=== PATIENT | male | born 1945 | race Caucasian/White ===

== ENCOUNTER 2016-11-01 16:37 | Inpatient (IN) | payer MEDICARE ==
[~2016-11-01] VITALS: Ht 172.7 cm; Wt 102.6 kg
--- NOTE | ~2016-11-01 | EKG ---
[place], [place] ELECTROCARDIOGRAM REPORT NAME: MICHAEL ADLER UNIT #: [id number] ROOM: 407 DOCTOR: FATIMAH MUNOZ MD BIRTHDATE: [birth year] DOS: 11/01/2016 TIME: 17:06 FINDINGS: 1. Normal sinus rhythm at the rate 72. 2. First degree AV block. 3. Left ventricular hypertrophy of high voltage with secondary ST and T wave changes. 4. Abnormal electrocardiogram. FATIMAH MUNOZ MD CM:EKGRPT:ELECTROCARDIOGRAM REPORT 1051 1203 FATIMAH MUNOZ MD
--- NOTE | ~2016-11-01 | WRIGHTHP ---
[place], [place] PATIENT HISTORY AND PHYSICAL EXAM NAME: MICHAEL ADLER [facility] #: [id number] UNIT #: [id number] ROOM: 407 DOCTOR: LULY HERRERA DO BIRTHDATE: [birth year] DOS: 11/01/2016 PRIMARY CARE PHYSICIAN: Dr. Riley. The patient was seen and evaluated on 11/02/2016 with the resident. Please see the resident's note for further details. ASSESSMENT: 1. Acute community acquired pneumonia, right upper lobe and right lower lobe. 2. Hemoptysis. 3. Mild acute renal failure with history of chronic kidney disease stage III. 4. Coagulopathy secondary to chronic Coumadin treatment. 5. Hypertension. 6. Hyperlipidemia. 7. Diabetes mellitus. 8. Coronary artery disease with history of coronary artery bypass graft in 2004. 9. History of carotid artery stent placed on the right side. PLAN: Continue IV antibiotics. Follow up on final cultures. Dr. Garnica was consulted. Continue supportive care ____ with the nurse for now. LULY HERRERA DO CM:HISPHYS:PATIENT HISTORY AND PHYSICAL EXAMINATION 1133 1332 LULY HERRERA DO 11/02/16 1334 interface
--- NOTE | ~2016-11-01 | PR ---
[place], [place] PROGRESS NOTE [id number] UN[facility] #: [id number] ROOM: 407 DOCTOR: SANTY AWAN MD,REBEKAH BIRTHDATE: [birth year] DOS: 11/05/2016 PULMONARY PROGRESS NOTE SUBJECTIVE: He has been doing well at this time. There has not been any episodes of hemoptysis. The patient denies symptoms of chest pain or any abdominal pain. OBJECTIVE: VITAL SIGNS: Shows normal temperature, respiratory rate 20, heart rate of 69, blood pressure 160/69. The pulse oxygen saturation on room air 97% saturation. HEENT: Examination shows no acute change. NECK: Supple. CARDIOVASCULAR: S1, S2 is audible. LUNGS: The patient was noted with moderate decreased breath sounds in the lungs bilaterally. There was no wheezing or crackles. ABDOMEN: Soft, nontender. LABORATORY DATA: Culture of the bronchial washing, normal aileen. The BMP of patient this morning, BUN 34, creatinine 2.16. IMPRESSION: 1. The patient with resolution of the hemoptysis for the patient, etiology does not seem to be related to the lungs and pseudohemoptysis was suspected. 2. Chronic kidney disease. 3. Resolving acute tracheobronchitis and other problems. PLAN OF TREATMENT: No changes from the pulmonary standpoint. Discharge planning for the patient as ordered and being started, the patient to be continued. Other previous treatment to be continued as well. Usual plan of management. REBEKAH MADERA MD CM:PNTRANS 1002 REBEKHA AWAN MD 11/06/16 0215 interface
--- NOTE | ~2016-11-01 | PROC NOTE ---
[place], [place] PROCEDURE NOTE [id number] UNIT #: [id number] ROOM: 407 DOCTOR: SANTY AWAN MD,REBEKAH BIRTHDATE: [birth year] DOS: 11/03/2016 PROCEDURE: Bronchoscopy. PREOPERATIVE DIAGNOSIS: Hemoptysis. POSTOPERATIVE DIAGNOSES: No evidence of bleeding was noted in endobronchial tree at all. Moderate amount of mucopurulent secretions which were present in endobronchial tree cleared with normal saline wash. There were no endobronchial obstructive lesions. Limited nasal examination for the patient was noted with possibility of polyp for this patient in the left nostril or turbinate hypertrophy. PROCEDURE DESCRIPTION: The informed consent obtained for the patient. The patient brought to the OR and placed in supine position. Conscious sedation was administered by the Anesthesia Department. After achieving proper sedation, airway introduced into the mouth. Bronchoscope advanced through the airway into laryngeal area. Epiglottis and vocal cords were seen. Bronchoscope advanced to the vocal cord and tracheal lumen. Tracheal lumen was identified and noted free of any masses. Scattered amount of purulent secretion was present in tracheal lumen, which was suctioned out with the help of normal saline wash and sent for cultures. Right upper, right middle, left upper, lingular and lower lobe bronchi for this patient were all examined. The bronchial washing was sent for culture. There was no evidence of any ongoing active bleeding or evidence of chronic bleeding was noted in the airways for the patient at the time of the assessment. Limited nasal examination for the patient was noted with possibility of nasal hypertrophy with inability to pass the scope further, rule out any polyp in the left nostril as well. Procedure well tolerated by the patient. The pictures of the current nasal abnormality were taken for the patient and consultation will be ordered from Dr. Diaz. Bronchial washings sent for all the appropriate cultures. REBEKAH MADERA MD CM:PROCNOTE:PROCEDURE NOTE 0950 1213 REBEKAH AWAN MD
--- NOTE | ~2016-11-01 | O ---
[place], [place] OPERATIVE NOTE NAME: MICHAEL ADLER UNIT #: [id number] ROOM: 407 DOCTOR: DB MENDEZ MD BIRTHDATE: [birth year] DOS: GASTROENDOSCOPIC REPORT INDICATIONS: This is a 71-year-old patient who has presented with a chief complaint of epigastric distress. Apparent confusion between hemoptysis and hematemesis. ENT assessment has been already done. I have been asked for assessment of the patient regarding possibility of esophageal contribution with epigastric distress. PAST MEDICAL HISTORY: History of hypertension, history of pneumonia, history of renal insufficiency, gastroesophageal reflux, history of coronary artery disease, and type 2 diabetes mellitus. PAST SURGICAL HISTORY: Cardiac stent, appendectomy, CABG, cholecystectomy, right carotid endarterectomy. SOCIAL HISTORY: Past smoker. Rare alcohol consumer. FAMILY HISTORY: Noncontributory. ALLERGIES: DEER MEAT AND TUNA. No medications. MEDICATIONS: Medication list has been reviewed. PROCEDURE: Today's procedure part of investigation is panendoscopy. PREMEDICATION: Versed and Diprivan. SCOPE: Olympus forward-viewing gastroscope Q10 video. REPORT: After putting the patient in left lateral position and after application of lubricant to the scope, the scope was introduced. Thereafter, under direct visualization, I advanced through the length of esophagus without difficulty. Esophagus cervicothoracic distally carefully examined. Gastric pouch was entered. Mild gastritis was seen. Duodenal bulb, second and third part within normal limits. The patient was extubated, tolerated the procedure well. IMPRESSION: Gastritis of mild degree. No active bleeding from esophagus. No active bleeding from gastric pouch. No contribution to upper gastrointestinal bleed. PLAN AND DISCUSSION: Pepcid 20 mg one every day would suffice management of some of the symptoms of dyspepsia, epigastric distress. ENT work and Pulmonary work in progress. [place], [place] OPERATIVE NOTE NAME: VITORMICHAEL Humphrey UNIT #: [id number] ROOM: 407 DOCTOR: DB MENDEZ MD BIRTHDATE: [birth year] DB MENDEZ MD CM:OPRECORD:OPERATIVE NOTE 1209 1520 DB MENDEZ MD 11/05/16 0022 interface
--- NOTE | ~2016-11-01 | PR ---
[place], [place] PROGRESS NOTE NAME: MICHAEL ADLER UNIT #: [id number] ROOM: 407 DOCTOR: REBEKAH SON MD BIRTHDATE: [birth year] DOS: 11/04/2016 PULMONARY PROGRESS NOTE SUBJECTIVE: The patient has been noted comfortable at this time without any distress. There were no further episodes of hemoptysis noted. Bronchoscopy completed yesterday with reduction of the cough as well. He was resumed on his anticoagulation. OBJECTIVE: VITAL SIGNS: Normal temperature, respiratory rate 20, heart rate 73, blood pressure 156/71. Pulse oxygen saturation on room air 96% saturation recorded. HEENT: No new change. NECK: Supple. CARDIOVASCULAR: S1, S2 audible. LUNGS: The patient was noted without any wheezing or crackles at the present time. ABDOMEN: Soft, nontender. LABORATORY DATA: INR today was 1.2. BMP of this morning, BUN 36, creatinine 2.29, glucose 231. The Gram stain of the bronchial washing of the patient noted moderate white blood cells, epithelial cells with gram-positive cocci in pairs and chains with few gram-negative bacilli, normal aileen preliminary noted with final culture results were pending. IMPRESSION: 1. Status post bronchoscopy of the patient for assessment hemoptysis, most likely pseudohemoptysis. 2. Nasal turbinate hypertrophy. 3. Acute pneumonia. The patient will be treated with antibiotics. PLAN OF TREATMENT: The patient may be considered for home discharge on oral medications. The chest x-ray of the patient was ordered for the patient, PA and lateral views to reassess the pneumonia as well. Continuation of other supportive therapy, plan of management. Usual care. If the patient does get discharged home today, he was advised for outpatient followup. ENT followup for the patient as recommended. [place], [place] PROGRESS NOTE NAME: MICHAEL ADLER UNIT #: [id number] ROOM: 407 DOCTOR: REBEKAH SON MD BIRTHDATE: [birth year] REBEKAH MADERA MD CM:PNTRANS 1027 0232 REBEKAH AWAN MD 11/05/16 0233 interface
--- NOTE | ~2016-11-01 | CON ---
[place], [place] REPORT OF CONSULTATION NAME: MICHAEL ADLER [facility] #: [id number] UNIT #: [id number] ROOM: 407 DOCTOR: SANTY AWAN MDREBEKAH BIRTHDATE: [birth year] DOS: 11/02/2016 PULMONARY CONSULTATION, EVALUATION AND MANAGEMENT REASON FOR CONSULTATION: To assess the patient for current acute hemoptysis. HISTORY OF PRESENT ILLNESS: A 71 years old white male who has presented to the hospital and admitted under the care of hospitalist services. The patient has been noted with coughing with sputum expectoration, which has been described intermittently containing small amount of blood. The patient has been hospitalized for further medical management. The hemoptysis has been noted intermittent, small amount as well. The patient described the blood containing fresh blood as a possibility of old clotted blood as well. He denies any symptoms of chest pain with that. Shortness of breath has been described. Denies symptoms of chest trauma. The patient denies symptoms of active wheezing. REVIEW OF SYSTEMS: CONSTITUTIONAL SYMPTOMS: The patient was noted with symptoms of fatigue and tiredness, was not remembering any symptoms of fever or chills. EYES: Denies any burning, redness or tenderness. EARS, NOSE, THROAT SYMPTOMS: No sore throat, hoarseness, otalgia, postnasal drainage, or epistaxis. CARDIOVASCULAR SYSTEM: Denies anginal pain, edema or pain of the lower extremities. GASTROINTESTINAL: Denies dysphagia, nausea, vomiting, diarrhea, abdominal pain, hematemesis, melena or any abnormal weight loss history. SKIN: Denies lesions, rashes or ulcers. CENTRAL NERVOUS SYSTEM: No dizziness, headache, diplopia, syncopal episodes or seizures. Remaining systems were reviewed with the patient, they were noted all negative. PAST MEDICAL HISTORY: Was noted as history of: 1. Coronary artery disease. 2. Essential hypertension. 3. Chronic kidney disease, stage 3. 4. Past history of pleural effusions. 5. Type 2 diabetes mellitus. 6. Hypercholesterolemia. 7. Atherosclerotic carotid vascular disease. PAST SURGICAL HISTORY: Was noted, 1. Coronary artery bypass grafting in 2004. 2. Cataract extraction with lens implantation. 3. Carotid arterial stent insertion. SOCIAL HISTORY: The patient is , lives at home. He has been noted with history of tobacco use since teenager, smoked about 1.5 packs of cigarettes per day that was discontinued approximately 30 years ago. 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 FAMILY HISTORY: The patient reported as diabetes and cancer. PHYSICAL EXAMINATION: GENERAL: This is a 71 years old white male who has been noted currently awake and alert without any distress with a height recorded 5 feet 8 inches, weight of 226 pounds, BMI 34.3. VITAL SIGNS: Shows normal temperature, respiratory rate is 12-18, heart rate of 71-74, blood pressure 166/67-176/82. Pulse oxygen saturation recorded as 97% on room air. HEENT: Examination shows head was atraumatic. Eyes nonicterus. NECK: Supple. Oral mucosa moist. CARDIOVASCULAR SYSTEM: S1, S2 audible. LUNGS: Noted with moderate decreased breath sounds and mild crackles at the lung bases bilaterally. ABDOMEN: Soft, nontender. EXTREMITIES: Shows no edema, clubbing, cyanosis. CENTRAL NERVOUS SYSTEM: Cranial nerves II-XII were intact. No focal deficits. MUSCULOSKELETAL SYMPTOMS: No acute deformities. LABORATORY DATA: CBC was done this morning shows hemoglobin 11.8, hematocrit 36.4, WBC count was normal. Platelet count was normal yesterday. The PT/INR yesterday noted 1.6 with PTT of 32.4. CMP on 11/01/2016 noted as BUN 46, creatinine 2.50, glucose 474. Sodium 133. CK-MB and troponin, which were done yesterday and this morning so far noted all the sets negative. CBC that was repeated this morning was noted with hemoglobin 11.2, hematocrit 34.1, WBC count and platelet count were normal. CMP this morning: BUN 40, creatinine 2.21, glucose 227, chloride 108, total protein of 5.9, albumin 2.8. The chest x-ray that was done, 2 views, reviewed during the current hospitalization noted with infiltration noted in the right mid and the lower lung. A CT scan of the chest was done today for assessment of further symptoms without contrast was reviewed, showed just small infiltration present in the posterior segment of the right upper lobe and the superior segment of the right lower lobe. Increased interstitial pulmonary markings noted possibility of interstitial lung disease cannot be completely excluded. There was no abnormal mediastinal or hilar lymphadenopathy. IMPRESSION: 1. The patient will be currently admitted to the hospital with symptoms of hemoptysis, was suspected possibility of acute pneumonia involving the right lung, nonaspiration with gram-positive organisms. 2. Possibility of interstitial pulmonary fibrosis has been considered scattered in the lungs versus acute infection at this time to be excluded since there has not been any. Past CT scans of the chest taken for comparison of current acute abnormal findings. 3. History of coronary artery disease for the patient as well. 4. Chronic anticoagulation noted with the current anticoagulation has been discontinued such as Plavix, aspirin, Coumadin because of the current [place], [place] REPORT OF CONSULTATION NAME: MICHAEL ADLER UNIT #: [id number] ROOM: 407 DOCTOR: REBEKAH SON MD BIRTHDATE: [birth year] hemoptysis. 5. Acute kidney injury. The patient with chronic kidney disease, stage 3. Acute kidney injury most likely would be related to possibility of prerenal etiology. PLAN OF TREATMENT: Keep the patient's anticoagulation on hold at this time. Bronchoscopy assess to be done in the morning for further assessment of endobronchial tree. Bronchodilators to be continued. Continue current antibiotic for the medical management of current acute pneumonia that should suffice. Monitor respiratory status closely, make additional changes in the medical management accordingly. Usual care. His home medications have been reviewed and resumed by the primary care attending. The assessment and management as well as the bronchoscopy has been discussed with the patient's spouse as well. She was also noted in agreement for that. Monitoring the hemoptysis closely. Send the sputum for gram stain and culture if the patient is able to expectorate any sputum until then. Further treatment changes will be done based on the progression of his illness. Currently, the patient has been receiving IV Zithromax, Rocephin that should suffice the current antibiotic coverage for the current acute pneumonia. REBEKAH MADERA MD CM:CONSTR:REPORT OF CONSULTATION 1119 11/03/16 0346 interface
--- NOTE | ~2016-11-01 | CON ---
[place], [place] REPORT OF CONSULTATION NAME: MICHAEL ADLER UNIT #: [id number] ROOM: 407 DOCTOR: CHRISTIANO ONEILL MD BIRTHDATE: [birth year] DOS: 11/03/2016 REFERRING DOCTOR: Dr. Garnica. REASON FOR CONSULTATION: Nasal polyp. HISTORY: The patient is a 71-year-old male who was admitted to [facility] with complaints of bloody sputum. The patient apparently was on oral anticoagulation and was taking warfarin, Plavix and aspirin prior to this episode. He underwent a bronchoscopy today and Dr. Garnica has requested consultation because of concern over possible abnormality in the nose. PAST MEDICAL HISTORY: Hypertension, folic acid deficiency, hemoptysis, hyperglycemia, coronary artery disease, congestive heart failure, GERD, hypercholesterolemia, anemia, type 2 diabetes mellitus and vitamin D deficiency. PAST SURGICAL HISTORY: Includes right carotid endarterectomy with stent placement, appendectomy, coronary artery bypass surgery, cholecystectomy and right inguinal hernia repair. HOME MEDICATIONS: Lasix, Coumadin, sodium bicarbonate, insulin, warfarin, aspirin, carvedilol, spironolactone, simvastatin, fenofibrate, digoxin, clopidogrel, omeprazole, valsartan. ALLERGIES: THE PATIENT STATES HE IS ALLERGIC TO DEER MEAT AND TUNA. PHYSICAL EXAMINATION: HEENT: The patient was examined in the PACU following his bronchoscopy, and bilateral nasal endoscopy was performed and showed an enlarged left middle turbinate, which I believe is the abnormality Dr. Garnica was concerned about. Overall, the architecture of the turbinates were normal. No polyps were seen. No mass lesions were seen. The oral cavity and oropharynx is unremarkable. Ears clear. NECK: Supple. IMPRESSION: 1. Hemoptysis. 2. Normal nasal anatomy. PLAN: Case was discussed with Dr. Garnica and I have explained to him that I believe the abnormality identified in the nose was an abnormally enlarged nasal turbinate. I have asked Dr. Garnica to have the patient follow up with ENT following discharge. Thank you for this consultation. [place], [place] REPORT OF CONSULTATION NAME: VITORMICHAEL Humphrey UNIT #: [id number] ROOM: 407 DOCTOR: CHRISTIANO ONEILL MD BIRTHDATE: [birth year] CHRISTIANO ONEILL MD CM:CONSTR:REPORT OF CONSULTATION 1134 11/04/16 1248 interface
--- NOTE | ~2016-11-01 | PR ---
[place], [place] PROGRESS NOTE NAME: MICHAEL ADLER ACC #: [id number] UNIT #: [id number] ROOM: 407 DOCTOR: REBEKAH SON MD BIRTHDATE: [birth year] DOS: 11/03/2016 SUBJECTIVE: He has been n.p.o. past midnight for bronchoscopy. The patient stated that he has expectorated moderate amount of sputum this morning, but did not contain any blood. He denies symptoms of chest pain or any abdominal pain. The patient does complain of mild shortness of breath. OBJECTIVE: VITAL SIGNS: Showed normal temperature, respiratory rate 21, heart rate 75, blood pressure 130/58. Pulse oxygen saturation on room air was 95% saturation. HEENT: Showed no new change. NECK: Supple. CARDIOVASCULAR: S1, S2 audible. LUNGS: The patient was noted without any wheezing or crackles at the present time. ABDOMEN: Soft, nontender. LABORATORY DATA: Blood culture from the 11/01/2016 for the patient preliminary showed no bacterial growth. Final culture results were pending. CMP this morning, BUN 35, creatinine 2.24. Glucose 196. The CBC for the patient was noted WBC count 10.4, hemoglobin 11.3, hematocrit 35.4. IMPRESSION: 1. The patient who has been currently noted with presumed hemoptysis. The patient's etiology unclear. 2. The patient with acute kidney injury, chronic kidney disease stage 3 to stage 4. 3. Acute pneumonia for this patient of the right lung suspected Gram-positive infection. PLAN OF TREATMENT: Continuation of the current plan of management at this time. Proceed with the bronchoscopy as planned. Any modification in the treatment the patient if necessary will be done after bronchoscopy. No changes in the medical management at this time. [place], [place] PROGRESS NOTE NAME: MICHAEL ADLER UNIT #: [id number] ROOM: 407 DOCTOR: REBEKAH SON MD BIRTHDATE: [birth year] REBEKAH MADERA MD CM:PNTRANS 0947 1157 REBEKAH AWAN MD 11/03/16 1158 interface
[~2016-11-01 16:37] MED LIST: ADVIL200 MG PO; ALBUTEROL0.09 MG/A2 IH; ALDACTONE25 MG PO; ASPI-COR81 MG PO; BACTROBAN OINT22 GM PO; CARVEDILOL25 MG PO; CINNAMON500 MG PO; COUMADIN2.5 MG PO; COUMADIN5 M2 PO; DIGOX0.125 MG PO; DIGOXIN0.125 MG PO; ENALAPRIL2.5 MG PO; ENALAPRIL5 MG PO; FENOFIBRATE160 MG PO; FLONASE0.05 MG/AC NS; HUMULIN 70/30 710 M1 SC; HUMULIN 70/30 PE3 ML SC; KEFLEX500 MG PO; LASIX40 MG PO; LEVOFLOXACIN500 MG PO; LOMOTIL 0.025 M1 TA1 PO; MEDROL DOSEPAK4 MG PO; OMEPRAZOLE40 MG PO; PRILOSEC40 MG PO; PROTONIX40 M1 PO; PROTONIX40 MG PO; ROBITUSSIN AC 110 ML PO; RU 500 SC; SIMVASTATIN20 MG PO; SODIUM BICARBO650 MG PO; TESSALON PERLE200 MG PO; TOBRADEX 0.1%-0.5 ML OPH; U-500 SC; VIBRAMYCIN100 MG PO; VITAMIN D50000 IU PO; ZITHROMAX Z PA250 MG PO; ZOFRAN ODT4 MG SL
[2016-11-01 16:46] VITALS: BP 162/72
[2016-11-01] MEDS ORDERED: CLOPIDOGREL75 MG PO (16:49)
[2016-11-01] MEDS ORDERED: HUMALOG100 UNIT/1 SQ (16:51)
[2016-11-01] MEDS ORDERED: OMEPRAZOLE40 MG PO (16:52)
[2016-11-01] MEDS ORDERED: TOUJEO300 U/ML SC (16:55)
[2016-11-01] MEDS ORDERED: VALSARTAN80 MG PO (16:55)
[2016-11-01 17:37] LABS: BASO # 0.1 10*3/uL (0.0-0.1); BASO % 0.9 % (0.0-1.0); EOS # 0.2 10*3/uL (0.0-0.4); EOS % 2.1 % (1.0-4.0); HEMATOCRIT 36.4 % (42.0-52.0); HEMOGLOBIN 11.8 g/dl (14.0-18.0); IG # 0.1 10*3/uL (0.0-0.1); LYMPH # 1.7 10*3/uL (1.3-4.4); LYMPH % 17.6 % (27.0-41.0); MEAN CELL VOLUME 84.8 fl (80.0-94.0); MEAN CORPUSCULAR HGB 27.5 pg (27.0-31.0); MEAN CORPUSCULAR HGB CONC 32.4 g/dl (33.0-37.0); MEAN PLATELET VOLUME 11.2 fl (9.6-12.3); MONO # 0.4 10*3/uL (0.1-1.0); MONO % 4.4 % (3.0-9.0); NEUT # 7.2 10*3/uL (2.3-7.9); NEUT % 74.5 % (47.0-73.0); PLATELET COUNT AUTOMATED 220 10*3/uL (130-400); RED BLOOD COUNT 4.29 10*6/uL (4.50-5.90); RED CELL DISTRI WIDTH 14.3 % (0-14.5); WHITE BLOOD COUNT 9.6 10*3/uL (4.8-10.8)
[2016-11-01 17:50] LABS: INTERNATIONAL NORM RATIO 1.6 (2.0-3.5); PROTHROMBIN TIME 17.4 SECONDS (9.0-12.4)
[2016-11-01 17:54] LABS: ALBUMIN 3.2 gm/dl (3.1-4.5); ALKALINE PHOSPHATASE 56 U/L (45-117); BILIRUBIN, TOTAL 0.5 mg/dl (0.2-1.0); BUN 46 mg/dl (7-24); CARBON DIOXIDE 24 mmol/L (21-32); CHLORIDE 102 mmol/L (98-107); EST GLOM FILT AFRICAN AMERICAN 31 ml/min; GLUCOSE 474 mg/dL (65-99); MAGNESIUM 1.9 mg/dL (1.5-2.1); POTASSIUM 4.9 mmol/L (3.5-5.1); SGOT/AST 23 IU/L (3-35); SGPT/ALT 19 U/L (12-78); SODIUM 133 mmol/L (136-145); TOTAL PROTEIN 6.6 gm/dL (6.4-8.2)
[2016-11-01 17:56] LABS: TROPONIN I < 0.015 ng/ml (<0.045)
[2016-11-01 18:56] VITALS: BP 166/56
[2016-11-01 19:09] VITALS: BP 145/66
[2016-11-01 20:30] VITALS: BP 176/82
[2016-11-02 00:33] VITALS: BP 159/68
[2016-11-02 00:36] LABS: CKMB 2.4 ng/ml (0.5-3.6); TROPONIN I 0.022 ng/ml (<0.045)
[2016-11-02 06:11] LABS: BASO # 0.1 10*3/uL (0.0-0.1); BASO % 0.6 % (0.0-1.0); EOS # 0.3 10*3/uL (0.0-0.4); EOS % 3.6 % (1.0-4.0); HEMATOCRIT 34.1 % (42.0-52.0); HEMOGLOBIN 11.2 g/dl (14.0-18.0); LYMPH # 1.7 10*3/uL (1.3-4.4); LYMPH % 19.3 % (27.0-41.0); MEAN CELL VOLUME 84.2 fl (80.0-94.0); MEAN CORPUSCULAR HGB 27.7 pg (27.0-31.0); MEAN CORPUSCULAR HGB CONC 32.8 g/dl (33.0-37.0); MEAN PLATELET VOLUME 10.5 fl (9.6-12.3); MONO # 0.4 10*3/uL (0.1-1.0); MONO % 4.9 % (3.0-9.0); NEUT # 6.4 10*3/uL (2.3-7.9); NEUT % 71.3 % (47.0-73.0); PLATELET COUNT AUTOMATED 203 10*3/uL (130-400); RED BLOOD COUNT 4.05 10*6/uL (4.50-5.90)
[2016-11-02 06:27] LABS: CKMB 2.1 ng/ml (0.5-3.6); TROPONIN I 0.025 ng/ml (<0.045)
[2016-11-02 06:40] LABS: ALBUMIN 2.8 gm/dl (3.1-4.5); BILIRUBIN, TOTAL 0.4 mg/dl (0.2-1.0); MAGNESIUM 1.9 mg/dL (1.5-2.1); PHOSPHOROUS 2.7 mg/dL (2.5-4.9); TOTAL PROTEIN 5.9 gm/dL (6.4-8.2)
[2016-11-02 06:49] LABS: FREE T4 1.06 ng/dl (0.76-1.46); THYROID STIM HORMONE (HS) 2.19 uIU/ml (0.358-4.75)
[2016-11-02 06:50] LABS: POTASSIUM 3.7 mmol/L (3.5-5.1)
[2016-11-02 06:54] LABS: INTERNATIONAL NORM RATIO 1.4 (2.0-3.5); PROTHROMBIN TIME 15.7 SECONDS (9.0-12.4)
[2016-11-02 06:59] LABS: HEMOGLOBIN A1c 11.4 % (4.8-5.6)
[2016-11-02 07:31] LABS: FOLIC ACID 4.59 ng/mL (>5.38); VITAMIN D, 25-HYDROXY 16.1 ng/mL (30-100)
[2016-11-02 08:00] VITALS: BP 166/67
[2016-11-02 12:00] VITALS: BP 162/71
[2016-11-02 16:00] VITALS: BP 185/78
[2016-11-02 20:00] VITALS: BP 139/64
[2016-11-03] VITALS (9 sets, daily range): BP systolic 120–181; BP diastolic 52–79
[2016-11-03 05:52] LABS: BASO # 0.1 10*3/uL (0.0-0.1); BASO % 0.6 % (0.0-1.0); EOS # 0.3 10*3/uL (0.0-0.4); EOS % 3.1 % (1.0-4.0); HEMATOCRIT 35.4 % (42.0-52.0); HEMOGLOBIN 11.3 g/dl (14.0-18.0); IG # 0.1 10*3/uL (0.0-0.1); LYMPH # 1.7 10*3/uL (1.3-4.4); LYMPH % 16.6 % (27.0-41.0); MEAN CELL VOLUME 84.9 fl (80.0-94.0); MEAN CORPUSCULAR HGB 27.1 pg (27.0-31.0); MEAN CORPUSCULAR HGB CONC 31.9 g/dl (33.0-37.0); MEAN PLATELET VOLUME 10.9 fl (9.6-12.3); MONO # 0.5 10*3/uL (0.1-1.0); MONO % 4.8 % (3.0-9.0); NEUT # 7.5 10*3/uL (2.3-7.9); NEUT % 74.4 % (47.0-73.0); PLATELET COUNT AUTOMATED 215 10*3/uL (130-400); RED BLOOD COUNT 4.17 10*6/uL (4.50-5.90); WHITE BLOOD COUNT 10.1 10*3/uL (4.8-10.8)
[2016-11-03 06:14] LABS: ALBUMIN 2.8 gm/dl (3.1-4.5); BILIRUBIN, TOTAL 0.4 mg/dl (0.2-1.0); MAGNESIUM 1.8 mg/dL (1.5-2.1); POTASSIUM 3.8 mmol/L (3.5-5.1)
[2016-11-03 06:21] LABS: INTERNATIONAL NORM RATIO 1.3 (2.0-3.5)
[2016-11-04] VITALS (8 sets, daily range): BP systolic 125–168; BP diastolic 59–71
[2016-11-04 06:10] LABS: POTASSIUM 3.9 mmol/L (3.5-5.1)
[2016-11-04 06:26] LABS: INTERNATIONAL NORM RATIO 1.2 (2.0-3.5); PROTHROMBIN TIME 12.3 SECONDS (9.0-12.4)
[2016-11-04 15:07] LABS: ACID FAST SPEC PROCESSING Concentration (.)
[2016-11-05] VITALS: BP 119/56
[2016-11-05 06:02] LABS: BASO # 0.1 10*3/uL (0.0-0.1); BASO % 0.7 % (0.0-1.0); EOS # 0.4 10*3/uL (0.0-0.4); EOS % 4.1 % (1.0-4.0); HEMATOCRIT 33.4 % (42.0-52.0); HEMOGLOBIN 10.9 g/dl (14.0-18.0); LYMPH # 1.8 10*3/uL (1.3-4.4); LYMPH % 19.9 % (27.0-41.0); MEAN CELL VOLUME 85.2 fl (80.0-94.0); MEAN CORPUSCULAR HGB 27.8 pg (27.0-31.0); MEAN CORPUSCULAR HGB CONC 32.6 g/dl (33.0-37.0); MONO # 0.4 10*3/uL (0.1-1.0); MONO % 4.7 % (3.0-9.0); NEUT # 6.5 10*3/uL (2.3-7.9); NEUT % 70.2 % (47.0-73.0); PLATELET COUNT AUTOMATED 200 10*3/uL (130-400); RED BLOOD COUNT 3.92 10*6/uL (4.50-5.90); WHITE BLOOD COUNT 9.2 10*3/uL (4.8-10.8)
[2016-11-05 06:22] LABS: ALBUMIN 2.8 gm/dl (3.1-4.5); MAGNESIUM 1.9 mg/dL (1.5-2.1)
[2016-11-05 06:25] LABS: BILIRUBIN, TOTAL 0.3 mg/dl (0.2-1.0); TOTAL PROTEIN 5.8 gm/dL (6.4-8.2)
[2016-11-05 08:00] VITALS: BP 160/69
[2016-11-05] MEDS ORDERED: NATURE'S BLEND F1 MG PO (09:55)
[2016-11-05] MEDS ORDERED: AMINOPHYLLIN200 MG PO (09:55)
[2016-11-05] MEDS ORDERED: D-1000 185 MG-11 TAB PO (09:55)
== END 2016-11-05 11:25 | disposition home or self-care (01) | DRG 193 ==
LOC: ED 16:37 → 4E 18:26 → EDHOLD 18:26 → 4E 19:04
PROVIDERS: Emergency Medicine; Internal Medicine; Internal Medicine Critical Care Medicine; Internal Medicine Hospice and Palliative Medicine; Nurse Practitioner Family
DX: J18.9 Pneumonia, unspecified organism (principal); N17.0 Acute kidney failure with tubular necrosis; N18.4 Chronic kidney disease, stage 4 (severe); D68.59 Other primary thrombophilia; E11.22 Type 2 diabetes mellitus with diabetic chronic kidney disease; I50.22 Chronic systolic (congestive) heart failure; I13.0 Hypertensive heart and chronic kidney disease with heart failure and stage 1 through stage 4 chronic kidney disease, or unspecified chronic kidney disease; E11.65 Type 2 diabetes mellitus with hyperglycemia; N18.3 Chronic kidney disease, stage 3 (moderate); R13.10 Dysphagia, unspecified; K29.70 Gastritis, unspecified, without bleeding; I25.10 Atherosclerotic heart disease of native coronary artery without angina pectoris; D64.9 Anemia, unspecified; E55.9 Vitamin D deficiency, unspecified; E53.8 Deficiency of other specified B group vitamins; I48.0 Paroxysmal atrial fibrillation; J34.89 Other specified disorders of nose and nasal sinuses; E78.5 Hyperlipidemia, unspecified; E78.00 Pure hypercholesterolemia, unspecified; J20.9 Acute bronchitis, unspecified; K21.9 Gastro-esophageal reflux disease without esophagitis; Z79.01 Long term (current) use of anticoagulants; Z79.82 Long term (current) use of aspirin; Z79.4 Long term (current) use of insulin; Z91.018 Allergy to other foods; Z83.3 Family history of diabetes mellitus; Z80.9 Family history of malignant neoplasm, unspecified; Z95.1 Presence of aortocoronary bypass graft; Z98.49 Cataract extraction status, unspecified eye; Z82.49 Family history of ischemic heart disease and other diseases of the circulatory system; Z83.6 Family history of other diseases of the respiratory system; Z90.49 Acquired absence of other specified parts of digestive tract

== ENCOUNTER → 2016-11-08 | Outpatient (CLI) | payer MEDICARE ==
[~2016-11-08] MED LIST changes: +AMINOPHYLLIN200 MG PO; +CLOPIDOGREL75 MG PO; +D-1000 185 MG-11 TAB PO; +HUMALOG100 UNIT/1 SQ; +NATURE'S BLEND F1 MG PO; +TOUJEO300 U/ML SC; +VALSARTAN80 MG PO
[2016-11-08 12:10] LABS: PROTHROMBIN TIME 10.2 SECONDS (9.0-12.4)
== END | disposition home or self-care (01) ==
LOC: LAB 11:15
PROVIDERS: Internal Medicine Hospice and Palliative Medicine
DX: I48.0 Paroxysmal atrial fibrillation (principal)

== ENCOUNTER 2017-04-02 12:06 | Inpatient (IN) | payer MEDICARE ==
[~2017-04-02] VITALS: Ht 172.7 cm; Wt 98.2 kg
--- NOTE | ~2017-04-02 | PR ---
[place], [place] PROGRESS NOTE NAME: [id number] UNIT #: [id number] ROOM: 515 DOCTOR: TREVOR STAPLETON MD BIRTHDATE: [birth year] DOS: 04/04/2017 The patient was seen and examined. He is awake and alert. Denies shortness of breath. Denies nausea or vomiting. Denies any diarrhea. He states he thinks he feels a little bit better. He tells me he is being transferred to [place] tomorrow for a vascular intervention with the details unclear. PHYSICAL EXAMINATION: VITAL SIGNS: Showed temperature 97.6, pulse 70, respiratory rate 20, blood pressure 137/56. HEENT: Shows no JVD. LUNGS: Clear, no crackles or rales. HEART: Normal S1, S2. No rub, thrill or gallop. ABDOMEN: Soft, nontender. There is no organomegaly. EXTREMITIES: Showed trace edema. NEUROLOGIC: Showed no focal findings. LABORATORY DATA: Hemoglobin 8.6, white count of 8.7, platelets 205. Sodium 141, potassium 3.8, BUN 54, creatinine 3.25, glucose 157, calcium 7.4. ASSESSMENT AND PLAN: 1. Acute on chronic kidney disease. History of baseline creatinine is not clear. Creatinine is fairly stable today. Continue to follow trends. His baseline seems to be in the low to middle 2's range, although this is not confirmed. He may have a slight acute element related to prerenal factors. 2. Peripheral vascular disease with cellulitis. Dose the antibiotics for current creatinine clearance. I did note that the patient seems to be prepped for transfer tomorrow to an outside facility for a vascular intervention, which I am presuming to be lower extremity angiogram. I explained to the patient that there are certainly risks on his kidney function with this. I would ask that a CO2 angiogram be performed if possible to limit the contrast. The patient was upset when I told him about this and he has had issues with contrast nephropathy in the past. If his creatinine is higher tomorrow, I would try to hydrate the patient for some time to see if he has improvement before proceeding with the procedure and having more detailed discussion with him about it at the outside facility. 3. Anemia. Continue to follow H and H. Erythropoietin stimulating agents will be considered. 4. History of congestive heart failure. Watch volume status very carefully. Again, if contrast study is needed, he would be best to have some fluids with careful watch on his volume status. 5. Longstanding history of diabetes mellitus. Continue insulin. [place], [place] PROGRESS NOTE NAME: MICHAEL ADLER UNIT #: [id number] ROOM: [facility] DOCTOR: TREVOR STAPLETON MD BIRTHDATE: [birth year] TREVOR STAPLETON MD CM:PNTRANS 09 [phone] TREVOR STAPLETON MD 04/04/17 2317 interface
--- NOTE | ~2017-04-02 | EKG ---
[place], [place] ELECTROCARDIOGRAM REPORT NAME: MICHAEL ADLER UNIT #: [id number] ROOM: [facility] DOCTOR: SANTY AWAN MD,REBEKAH BIRTHDATE: [birth year] DOS: 04/02/2017 ELECTROCARDIOGRAM This EKG was done 03/31/2017 at 1:03 p.m. The electrocardiogram for this patient shows normal sinus rhythm with rate of 74 beats per minute. Mild prolongation of the WI interval. The patient noted unclear etiology. There is no evidence of acute ischemia except nonspecific ST-T changes were noted. REBEKAH MADERA MD CM:EKGRPT:ELECTROCARDIOGRAM REPORT [id number] REBEKAH AWAN MD
--- NOTE | ~2017-04-02 | CON ---
[place], [place] REPORT OF CONSULTATION NAME: MICHAEL ADLER UNIT #: [id number] ROOM: 515 [facility] [birth year] DOS: 04/04/2017 HISTORY OF PRESENT ILLNESS: ____ severe peripheral arterial disease more so below the popliteal and long-term diabetes mellitus, evidence of cardiovascular disease, history of coronary artery disease, coronary artery bypass in 2004. The patient also has hypercoagulable state and on the left ____ was concerned for the osteomyelitis also. ____ with possible severe peripheral arterial disease ____ enclosed over the peripheral artery and possible revascularization, ____ for which as per the warning given and able to salvage the left lower extremity and there are diminished pulses on the right side also, but able to feel the feeble dorsalis pedis and posterior tibial. On the left side, I could not feel the dorsalis pedis and the posterior tibial. Popliteal appears to be able to feel the popliteal both sides. The patient has a history of paroxysmal atrial fibrillation and type 2 diabetes mellitus and also dyslipidemia. The patient has insulin-dependent diabetes mellitus and also has vitamin deficiency. PAST SURGICAL HISTORY: The patient has had carotid endarterectomy, appendectomy, coronary bypass surgery, cholecystectomy, right inguinal hernia repair. SOCIAL HISTORY: The patient used to smoke one and half pack a day for 15-20 years. No smoking. No illicit drugs or alcohol use in the past. No smoking at this time. FAMILY HISTORY: Father also is a tobacco abuser ____. Mother has mitral infarction at age of 70. This is in 80s and the is probably from the heart disease. ALLERGIES: The patient is allergic to deer meat and ____. PHYSICAL EXAMINATION: GENERAL: Stable and alert. Not in any acute distress. Mental status is good. LABORATORY DATA: Hemoglobin 8.6. WBC 8.7, platelet count 205. BUN is 54, creatinine is elevated at 3.25. We will have the genetic counselor see the patient, prep the patient prior to the procedure with normal saline. GFR is 19, stage IV renal disease and we may ____ the procedure to reduce the risk of acute renal failure and contrast-induced nephropathy. Blood cultures are unremarkable. Osteomyelitis at the head of the proximal phalanx on the fourth left toe and ____ peripheral arterial disease, more severe on the left ____ and bilateral superficial artery stenosis, proximally. In-flow disease also is suspected. ____ on the left lower extremity and left toes and foot and ankle. IMPRESSION: Severe peripheral arterial disease with wound and possible osteomyelitis on the fourth toe on the left side and diminished pulses. PLAN: We will perform aortobifemoral angio with distal runoff with possible revascularization. Options, procedures, complications, and mortality risk is explained to the patient and spouse and the children. [place], [place] REPORT OF CONSULTATION NAME: MICHAEL ADLER UNIT #: [id number] ROOM: [facility] DOCTOR[facility] B[facility]: [birth year] Thank you very much for asking me to see the patient and follow the patient. ERIN DEXTER MD CM:CONSTR:REPORT OF CONSULTATION 1526 04/05/17 1845 interface MARLEN DOMINGUEZ DPM
--- NOTE | ~2017-04-02 | CON ---
[place], [place] REPORT OF CONSULTATION NAME: MICHAEL ADLER [facility] #: [id number] UNIT #: [id number] ROOM: 515 DOCTOR: ALBERTO PURIMARLEN J BIRTHDATE: [birth year] DOS: 04/03/2017 SUBJECTIVE: The patient is a 71-year-old male with a chief complaint of an infected fourth left toe, which has been evident for several weeks. The patient was admitted for cellulitis and infection. PAST MEDICAL HISTORY: Coronary artery disease, CHF, chronic kidney disease stage 3, essential hypertension, GERD, hypercoagulable state, mass nasal sinus, normocytic anemia, paroxysmal atrial fibrillation, type 2 diabetes with hyperglycemia, long-term current use of insulin, vitamin D deficiency. PAST SURGICAL HISTORY: History of right-sided carotid endarterectomy, appendectomy, CABG, cholecystectomy, right inguinal hernia repair. SOCIAL HISTORY: Former smoker, 1.5 pack a day from age [age]. Denies illicit drug use or alcohol. FAMILY HISTORY: Father tobacco abuse, at age late 70s, COPD. Mother CA at age 70, age late 80s, cause heart disease. ALLERGIES: DEER MEAT and TUNA. LOWER EXTREMITY EXAMINATION: Decreased pedal pulses, decreased hair growth, decreased epicritic sensation. There is edema to the left lower extremity. There is erythema with edema to the fourth left toe. Serous drainage noted. The lateral PIPJ ulceration is through subcutaneous tissue level with foul odor noted. No abscess identified. Radiographs suspicious for osteomyelitis to the head of the proximal phalanx fourth left toe. Results of the patient's arterial Doppler revealed moderate peripheral arterial disease, more severe on the left, particularly distal to the popliteal artery. There is question of bilateral SFA stenosis proximally, inflow disease also suspected. ASSESSMENT: Diabetes with peripheral vascular disease, probable osteomyelitis with cellulitis, fourth left toe. PLAN: Evaluation and management discussed with the patient in detail that he may lose the toe, that there may be infection of the bone along with the soft tissue. Discussed with the patient, we may have a hard time healing the area due to the decreased arterial flow. Consult Dr. Gomez for Vascular consultation. The patient may need Vascular intervention to allow for proper healing of the digit whether it is amputated or not. Ordered cultures of the tissue. Consult Infectious Disease. Bactroban dressing to be applied daily to the fourth toe. Also ordered venous Doppler due to edema of the left lower extremity. We will reassess the patient in a day or two to see if he has responded to the IV antibiotics and once we obtain Dr. Gomez's opinion whether Vascular intervention needed to be performed before any aggressive procedure can be done. The patient stated he would like to not have the toe amputated at all possible. I discussed with the patient additional treatment options. We will [place], [place] REPORT OF CONSULTATION NAME: MICHAEL ADLER UNIT #: [id number] ROOM: [facility] DOCTOR: MARLEN DOMINGUEZ DPM BIRTHDATE: [birth year] continue conservative care until Vascular consultation is performed. Possible treatment with IV antibiotics and hyperbaric oxygen to try and salvage the toe, but again in my opinion, the patient may need the amputation performed once proper arterial flow was restored. I discussed the case with Internal Medicine on the floor. We will also discuss the case with Dr. Sheets, he will see the patient on Wednesday and we will formulate treatment plan after consultations with Infectious Disease and Dr. Gomez for the Vascular consultation. MARLEN DOMINGUEZ DPM CM:CONSTR:REPORT OF CONSULTATION 1019 04/04/17 0033 interface
--- NOTE | ~2017-04-02 | CON ---
[place], [place] REPORT OF CONSULTATION NAME: MICHAEL ADLER UNIT #: [id number] ROOM: 515 DOCTOR: TREVOR STAPLETON MD BIRTHDATE: [birth year] DOS: 04/03/2017 REASON FOR CONSULTATION: Elevated creatinine. HISTORY OF PRESENT ILLNESS: The patient is a 71-year-old male. He was admitted to the hospital recently. He gives a history of known chronic kidney disease, diabetes, nephropathy, coronary artery disease, hypertension. It appears he presented to the hospital with dizziness, nausea and cough with clear sputum that has been ongoing for about a week. He also had issues with his left foot swelling and some redness and somewhat blue for a period of time. He developed more and more pain. He came to the hospital and had a blister noted on his foot and seems he has somewhat concerned for cellulitis now up his leg. Patient seems to have been started on antibiotics with primary service and was admitted for further evaluation. Labs revealed that his creatinine level was elevated. Today's creatinine was 3.1. In talking to patient, he has had known chronic kidney disease dating back for few years. He follows with [facility] group in . His baseline creatinine is not clear, but I did see old records that in fact were from just a few months ago which shows creatinine levels what appears to be at the mid 2s range for baseline with some fluctuations at times. Currently, patient denies shortness breath. He was on room air. Denied nausea, vomiting, dysuria or hematuria. ALLERGIES: No known drug allergies. HOME MEDICATIONS: Included aspirin, Coreg, digoxin, fenofibrate, Lasix, insulin, omeprazole, simvastatin, sodium bicarbonate, Aldactone, valsartan and Coumadin. PAST MEDICAL HISTORY: 1. Known chronic kidney disease as stated above. 2. Coronary artery disease. 3. Congestive heart failure 4. Hypertension. 5. GERD. 6. Hyperlipidemia. 7. Nasal sinus polyp. 8. Anemia. 9. Paroxysmal atrial fibrillation. 10. Longstanding diabetes mellitus. 11. Vitamin D deficiency. 12. Carotid endarterectomy. 13. History of carotid stenting. 14. Appendectomy. 15. History of CABG. 16. Cholecystectomy. 17. Inguinal hernia repair. FAMILY HISTORY: Negative for chronic kidney disease, otherwise noncontributory. SOCIAL HISTORY: No history of alcohol or illicit drugs. He has a previous [place], [place] REPORT OF CONSULTATION NAME: MICAHEL ADLER UNIT #: [id number] ROOM: [facility] DOCTOR: TREVOR STAPLETON MD BIRTHDATE: [birth year] history of tobacco abuse remotely a number of years ago. REVIEW OF SYSTEMS: As per HPI, otherwise a 10-point review of systems was reviewed and was negative. PHYSICAL EXAMINATION: VITAL SIGNS: Temperature afebrile, pulse 72, respirations 18, blood pressure of 137/66. GENERAL: He is alert, awake, oriented x 3, no acute distress. HEENT: Shows no JVD. Sclerae are anicteric. Mucous membranes were moist. Pharynx is clear. NECK: Supple. Trachea was midline. There is no neck lymphadenopathy. There is no thyromegaly. LUNGS: Diminished breath sounds. No appreciable wheeze. There is no tactile fremitus. He is not using accessory muscles of respiration. HEART: Normal S1, S2. No rub, thrill or gallop. ABDOMEN: Soft and nontender. I do not appreciate organomegaly. There is no rigidity, rebound or guarding. There is no CVA tenderness. EXTREMITIES: Had no edema. There is no lower extremity lymphadenopathy. Distal pulses were present. He had erythema noted in his lower extremity. SKIN: Showed no overt rash. There are no petechiae or purpura. Skin temperature is warm. He had erythema noted in his left lower extremity noted. NEUROLOGIC: He is awake, alert. He is following commands. Cranial nerves are intact. LABORATORY DATA: Hemoglobin 9.0, white count of 8.3, platelets of 190, sodium 141, potassium 3.9, CO2 of 23, calcium 7.5, phosphorus 3.1, magnesium 2.1, BUN 56, creatinine 3.1, glucose 143, albumin of 2.3. IMPRESSION: 1. What appears to be stage 3-4 chronic kidney disease. Patient's baseline creatinine appears to be in the low to middle 2s range. He may have slight acute element related to prerenal factors. 2. Peripheral vascular disease with cellulitis. 3. Coronary artery disease, status post coronary artery bypass graft. 4. Anemia. 5. Hypertension. 6. History of congestive heart failure. 7. Diabetic foot ulcer. 8. Longstanding history of diabetes. PLAN: 1. Agree with holding diuretics for now. 2. Dose medication for current creatinine clearance. 3. Follow vancomycin levels. 4. Avoid nephrotoxic agents, avoid contrast studies. 5. Avoid using NSAIDs. 6. Continue ongoing supportive care. Currently, there is no need for renal replacement therapy. [place], [place] REPORT OF CONSULTATION NAME: MICHAEL ADLER UNIT #: [id number] ROOM: [facility] DOCTOR: DAYA PEARL,TREVOR Mi BIRTHDATE: [birth year] Thank you for this consultation. We will follow with you. TREVOR STAPLETON MD CM:CONSTR:REPORT OF CONSULTATION 1433 04/03/17 2301 interface
[~2017-04-02 12:06] MED LIST changes: +TOUJEO SOL300 UNIT/1 SQ; -TOUJEO300 U/ML SC
[2017-04-02 12:13] VITALS: BP 135/54
[2017-04-02 12:52] LABS: BASO # 0.1 10*3/uL (0.0-0.1); BASO % 0.5 % (0.0-1.0); EOS # 0.1 10*3/uL (0.0-0.4); EOS % 0.6 % (1.0-4.0); HEMATOCRIT 31.6 % (42.0-52.0); HEMOGLOBIN 10.3 g/dl (14.0-18.0); LYMPH # 0.9 10*3/uL (1.3-4.4); LYMPH % 9.3 % (27.0-41.0); MEAN CELL VOLUME 85.2 fl (80.0-94.0); MEAN CORPUSCULAR HGB 27.8 pg (27.0-31.0); MEAN CORPUSCULAR HGB CONC 32.6 g/dl (33.0-37.0); MEAN PLATELET VOLUME 10.6 fl (9.6-12.3); MONO # 0.5 10*3/uL (0.1-1.0); MONO % 5.2 % (3.0-9.0); NEUT # 7.9 10*3/uL (2.3-7.9); NEUT % 83.9 % (47.0-73.0); PLATELET COUNT AUTOMATED 226 10*3/uL (130-400); RED BLOOD COUNT 3.71 10*6/uL (4.50-5.90); RED CELL DISTRI WIDTH 13.3 % (0-14.5); WHITE BLOOD COUNT 9.4 10*3/uL (4.8-10.8)
[2017-04-02 13:05] LABS: INTERNATIONAL NORM RATIO 3.2 (2.0-3.5)
[2017-04-02 13:08] LABS: ALBUMIN 2.7 gm/dl (3.1-4.5); CREATININE 3.02 mg/dL (0.70-1.30); MAGNESIUM 2.2 mg/dL (1.5-2.1); POTASSIUM 4.2 mmol/L (3.5-5.1); TOTAL PROTEIN 6.8 gm/dL (6.4-8.2)
[2017-04-02 13:15] LABS: TROPONIN I 0.257 ng/ml (<0.045)
--- NOTE | 2017-04-02 13:16 | NUR ---
TRIPONIN 0.257 PER LAB, MARTINEZ TAFOYA PA-C NOTIFIED.
--- NOTE | 2017-04-02 13:24 | NUR ---
PT REMAINS W/O ACUTE DISTRESS NOTED W/O C/P SOB OR COMPLAINTS VOICED,PT POSITIONED FOR COMFORT SAFETY PRECAUTIONS INTACT AND CALL LIGHT WITHIN REACH,FAMILY @ BEDSIDE.
[2017-04-02 13:30] LABS: BILIRUBIN NEGATIVE (NEGATIVE); BLOOD 2+ (NEGATIVE); CLARITY SL CLOUDY (CLEAR); COLOR YELLOW (YELLOW); GLUCOSE 1+ (NEGATIVE); KETONE NEGATIVE (NEGATIVE); LEUKO ESTERASE TRACE (NEGATIVE); NITRITE NEGATIVE (NEGATIVE); PH 5.5 (5.0-9.0); SPECIFIC GRAVITY 1.025 (1.005-1.030); UROBILINOGEN 0.2 E.U./dl (0.2-1.0)
[2017-04-02 13:44] LABS: RBC 16-20 rbc/hpf (0-2); WBC 16-20 wbc/hpf (0-5)
[2017-04-02 13:45] LABS: BACTERIA 2+; MUCOUS 1+
[2017-04-02 14:27] VITALS: BP 140/60; BP 140/70
[2017-04-02 15:40] VITALS: BP 133/57
[2017-04-02 16:00] VITALS: BP 133/57
--- NOTE | 2017-04-02 16:13 | NUR ---
A 71, admitted to , under the services of CHANTELLE Panda DO with a diagnosis of CELLULITIS OF LEFT LEG, ELEVATED TROPONIN, ACUTE ON CHRONIC RENAL INSUFFICIENCY. Chief complaint is WEAKNESS, NAUSEA, PRODUCTIVE COUGH. Patient arrived via bed from ER. Monitor applied. Initial assessment completed. Vital signs taken and recorded. CHANTELLE PANDA DO notified of admission to the unit. Orders received. See assessment for past medical history, medications and allergies. Patient and/or family oriented to unit. [facility]. Clothing/patient valuable form completed. MARTINEZ BOSCH
--- NOTE | 2017-04-02 17:43 | NUR ---
NOTIFIED DR. DOMINGUEZ OF CONSULT VIA ANSWERING SERVICE.
--- NOTE | 2017-04-02 17:45 | NUR ---
DR. DOMINGUEZ RETURNED PHONE CALL, WILL BE IN TO SEE PATIENT TOMORROW.
--- NOTE | 2017-04-02 19:58 | NUR ---
LAB CALLED CRITICAL TROP 0.144. DR MARINA NOTIFIED. NO NEW ORDERS AT THIS TIME.
[2017-04-02 20:00] VITALS: BP 138/53
--- NOTE | 2017-04-02 20:01 | NUR ---
PATIENT MEDICATED WITH PRN ZOFRAN ORDERED FOR C/O NAUSEA AND VOMITING.
--- NOTE | 2017-04-02 20:11 | NUR ---
PATIENT IS RESTING QUIETLY IN BED. DENIES ANY PAIN AT THIS TIME. RESPIRATIONS EASY/REGULAR. FLUIDS MAINTAINED PER ORDER. ONLY VOICED COMPLAINT AT THIS TIME IS NAUSEA WHICH HE WAS MEDICATED FOR. CALL LIGHT IN REACH. WILL MONITOR
--- NOTE | 2017-04-02 23:17 | NUR ---
PATIENT MEDICATED WITH PRN TYLENOL FOR SLIGHT TEMP ELEVATION AT 99.7
--- NOTE | 2017-04-02 23:23 | NUR ---
PATIENT MEDICATED WITH PRN RESTORIL FOR C/O INSOMNIA
[2017-04-03] VITALS: BP 133/55
--- NOTE | 2017-04-03 03:14 | NUR ---
SLEEPING. NO SXS OF DISTRESS. FLUIDS MAINTAINED PER ORDER. CALL LIGHT IS IN REACH.
[2017-04-03 06:06] LABS: BASO % 0.2 % (0.0-1.0); EOS # 0.2 10*3/uL (0.0-0.4); EOS % 2.1 % (1.0-4.0); HEMATOCRIT 27.6 % (42.0-52.0); LYMPH # 1.2 10*3/uL (1.3-4.4); LYMPH % 14.4 % (27.0-41.0); MEAN CELL VOLUME 87.1 fl (80.0-94.0); MEAN CORPUSCULAR HGB 28.4 pg (27.0-31.0); MEAN CORPUSCULAR HGB CONC 32.6 g/dl (33.0-37.0); MEAN PLATELET VOLUME 10.8 fl (9.6-12.3); MONO # 0.5 10*3/uL (0.1-1.0); MONO % 6.5 % (3.0-9.0); NEUT # 6.3 10*3/uL (2.3-7.9); NEUT % 76.2 % (47.0-73.0); PLATELET COUNT AUTOMATED 190 10*3/uL (130-400); RED BLOOD COUNT 3.17 10*6/uL (4.50-5.90); RED CELL DISTRI WIDTH 13.5 % (0-14.5); WHITE BLOOD COUNT 8.3 10*3/uL (4.8-10.8)
[2017-04-03 06:33] LABS: ALBUMIN 2.3 gm/dl (3.1-4.5); CREATININE 3.13 mg/dL (0.70-1.30); MAGNESIUM 2.1 mg/dL (1.5-2.1); PHOSPHOROUS 3.1 mg/dL (2.5-4.9); POTASSIUM 3.9 mmol/L (3.5-5.1)
--- NOTE | 2017-04-03 06:40 | NUR ---
PATIENT STATES LAST NIGHT WAS THE BEST HE HAS SLEPT IN A LONG TIME. RESPIRATIONS EASY/REGULAR. NO SXS OF DISTRESS. NO VOICED COMPLAINTS AT THIS TIME. FLUIDSA MAINTAINED PER ORDER. CALL LIGHT IS IN REACH.
[2017-04-03 06:41] LABS: FREE T4 1.22 ng/dl (0.76-1.46); THYROID STIM HORMONE (HS) 2.38 uIU/ml (0.358-4.75)
[2017-04-03 06:44] LABS: ACT PARTIAL THROMBO TIME 52.1 SECONDS (20.8-31.5); INTERNATIONAL NORM RATIO 3.4 (2.0-3.5)
[2017-04-03 07:36] LABS: VITAMIN D, 25-HYDROXY 17.5 ng/mL (30-100)
[2017-04-03 08:00] VITALS: BP 133/63
--- NOTE | 2017-04-03 09:39 | NUR ---
PT GIVEN PRN IV ZOFRAN FOR NAUSEA. WILL MONITOR EFFECTIVENESS.
--- NOTE | 2017-04-03 10:00 | NUR ---
PT NO LONGER NAUSEATED
--- NOTE | 2017-04-03 10:38 | NUR ---
DR DEXTER WILL BE IN TO SEE PATIENT TOMORROW.
--- NOTE | 2017-04-03 10:39 | NUR ---
DR YANG NOTIFIED OF CONSULT
[2017-04-03 12:00] VITALS: BP 137/66
--- NOTE | 2017-04-03 12:04 | NUR ---
PT GIVEN DULCOLAX FOR CONSTIPATION
--- NOTE | 2017-04-03 12:44 | NUR ---
NEPHROLOGY NOTIFIED OF CONSULT
--- NOTE | 2017-04-03 14:00 | NUR ---
VANCOMYCIN/DIGOXIN GIVEN BUT WILL NOT SCAN ON EMAR.
--- NOTE | 2017-04-03 14:00 | NUR ---
NEPHRO IN TO SEE PATIENT
[2017-04-03 16:00] VITALS: BP 133/68
[2017-04-03 20:00] VITALS: BP 123/50
[2017-04-04] VITALS: BP 120/48
[2017-04-04 05:54] LABS: BASO % 0.3 % (0.0-1.0); EOS # 0.1 10*3/uL (0.0-0.4); EOS % 1.4 % (1.0-4.0); HEMATOCRIT 26.7 % (42.0-52.0); HEMOGLOBIN 8.6 g/dl (14.0-18.0); LYMPH # 1.2 10*3/uL (1.3-4.4); LYMPH % 13.6 % (27.0-41.0); MEAN CELL VOLUME 86.4 fl (80.0-94.0); MEAN CORPUSCULAR HGB 27.8 pg (27.0-31.0); MEAN CORPUSCULAR HGB CONC 32.2 g/dl (33.0-37.0); MEAN PLATELET VOLUME 10.3 fl (9.6-12.3); MONO # 0.6 10*3/uL (0.1-1.0); MONO % 6.3 % (3.0-9.0); NEUT # 6.8 10*3/uL (2.3-7.9); NEUT % 77.9 % (47.0-73.0); PLATELET COUNT AUTOMATED 205 10*3/uL (130-400); RED BLOOD COUNT 3.09 10*6/uL (4.50-5.90); RED CELL DISTRI WIDTH 13.7 % (0-14.5); WHITE BLOOD COUNT 8.7 10*3/uL (4.8-10.8)
[2017-04-04 06:06] LABS: CREATININE 3.25 mg/dL (0.70-1.30); POTASSIUM 3.8 mmol/L (3.5-5.1)
[2017-04-04 08:00] VITALS: BP 113/45
[2017-04-04 09:21] LABS: INTERNATIONAL NORM RATIO 4.2 (2.0-3.5)
[2017-04-04 12:00] VITALS: BP 146/68
[2017-04-04 16:00] VITALS: BP 137/56
[2017-04-04 20:00] VITALS: BP 155/48
[2017-04-05] VITALS: BP 125/88; BP 130/62
[2017-04-05 06:26] LABS: INTERNATIONAL NORM RATIO 4.4 (2.0-3.5)
[2017-04-05 06:47] LABS: CREATININE 2.89 mg/dL (0.70-1.30); POTASSIUM 3.7 mmol/L (3.5-5.1)
--- NOTE | 2017-04-05 06:55 | NUR ---
CONTACTED RAQUEL FROM [facility] WITH PATIENTS PT INR RESULTS. SHE WILL CONTACT DR. DEXTER.
--- NOTE | 2017-04-05 07:53 | NUR ---
REPORT CALLED TO [place] AT [facility] ON THE 5TH FLOOR Discharge instructions reviewed with patient/family. Patient receptive and verbalizes understanding. Follow-up care arranged. Written instructions given to patient/family. RONAK MEDEIROS
== END 2017-04-05 07:30 | disposition short-term general hospital (02) | DRG 299 ==
LOC: ED 12:06 → EDHOLD 14:36 → 5E 14:36 → 4E 15:18 → 5E 15:19
PROVIDERS: Family Medicine; Internal Medicine; Physician Assistant; ADMIT Internal Medicine
DX: E11.51 Type 2 diabetes mellitus with diabetic peripheral angiopathy without gangrene (principal); N17.0 Acute kidney failure with tubular necrosis; E43 Unspecified severe protein-calorie malnutrition; N18.4 Chronic kidney disease, stage 4 (severe); D68.59 Other primary thrombophilia; E11.22 Type 2 diabetes mellitus with diabetic chronic kidney disease; E11.40 Type 2 diabetes mellitus with diabetic neuropathy, unspecified; I13.0 Hypertensive heart and chronic kidney disease with heart failure and stage 1 through stage 4 chronic kidney disease, or unspecified chronic kidney disease; I50.22 Chronic systolic (congestive) heart failure; L03.116 Cellulitis of left lower limb; M86.9 Osteomyelitis, unspecified; K21.9 Gastro-esophageal reflux disease without esophagitis; E78.00 Pure hypercholesterolemia, unspecified; L97.509 Non-pressure chronic ulcer of other part of unspecified foot with unspecified severity; E83.41 Hypermagnesemia; E66.09 Other obesity due to excess calories; E11.65 Type 2 diabetes mellitus with hyperglycemia; D64.9 Anemia, unspecified; B35.1 Tinea unguium; E53.8 Deficiency of other specified B group vitamins; E11.69 Type 2 diabetes mellitus with other specified complication; E11.621 Type 2 diabetes mellitus with foot ulcer; I48.0 Paroxysmal atrial fibrillation; I25.10 Atherosclerotic heart disease of native coronary artery without angina pectoris; L03.032 Cellulitis of left toe; R80.9 Proteinuria, unspecified; Z98.42 Cataract extraction status, left eye; Z98.41 Cataract extraction status, right eye; Z95.1 Presence of aortocoronary bypass graft; Z90.49 Acquired absence of other specified parts of digestive tract; Z79.4 Long term (current) use of insulin; Z87.891 Personal history of nicotine dependence; Z81.2 Family history of tobacco abuse and dependence; Z83.3 Family history of diabetes mellitus; Z80.8 Family history of malignant neoplasm of other organs or systems; Z83.6 Family history of other diseases of the respiratory system; Z82.49 Family history of ischemic heart disease and other diseases of the circulatory system; Z68.34 Body mass index [BMI] 34.0-34.9, adult; Z79.82 Long term (current) use of aspirin

== ENCOUNTER 2017-04-12 18:18 | Emergency (ER) | payer MEDICARE ==
[~2017-04-12] VITALS: Ht 172.7 cm; Wt 101.2 kg
[2017-04-12 18:55] LABS: BASO % 0.5 % (0.0-1.0); EOS # 0.3 10*3/uL (0.0-0.4); EOS % 4.1 % (1.0-4.0); HEMATOCRIT 25.3 % (42.0-52.0); LYMPH # 0.8 10*3/uL (1.3-4.4); LYMPH % 10.5 % (27.0-41.0); MEAN CELL VOLUME 85.8 fl (80.0-94.0); MEAN CORPUSCULAR HGB 27.1 pg (27.0-31.0); MEAN CORPUSCULAR HGB CONC 31.6 g/dl (33.0-37.0); MEAN PLATELET VOLUME 10.1 fl (9.6-12.3); MONO # 0.3 10*3/uL (0.1-1.0); MONO % 4.5 % (3.0-9.0); NEUT # 5.8 10*3/uL (2.3-7.9); NEUT % 79.7 % (47.0-73.0); PLATELET COUNT AUTOMATED 252 10*3/uL (130-400); RED BLOOD COUNT 2.95 10*6/uL (4.50-5.90); RED CELL DISTRI WIDTH 14.2 % (0-14.5); WHITE BLOOD COUNT 7.3 10*3/uL (4.8-10.8)
[2017-04-12 19:09] LABS: INTERNATIONAL NORM RATIO 1.1 (2.0-3.5)
[2017-04-12 19:32] LABS: ALBUMIN 2.4 gm/dl (3.1-4.5); CREATININE 4.41 mg/dL (0.70-1.30); POTASSIUM 3.9 mmol/L (3.5-5.1); TOTAL PROTEIN 6.3 gm/dL (6.4-8.2)
== END 2017-04-12 21:10 | disposition home or self-care (01) ==
LOC: ED 18:18
PROVIDERS: Physician Assistant
DX: E87.70 Fluid overload, unspecified (principal); N18.9 Chronic kidney disease, unspecified; I50.9 Heart failure, unspecified; N17.9 Acute kidney failure, unspecified; Z87.891 Personal history of nicotine dependence; Z95.1 Presence of aortocoronary bypass graft; Z90.49 Acquired absence of other specified parts of digestive tract; Z98.890 Other specified postprocedural states; Z79.82 Long term (current) use of aspirin; Z79.01 Long term (current) use of anticoagulants; Z79.899 Other long term (current) drug therapy; Z91.018 Allergy to other foods

== ENCOUNTER → 2017-04-29 | Outpatient (CLI) | payer MEDICARE | END | disposition home or self-care (01) | LOC: WOUNDCARE 03:26 | DX: E11.621 Type 2 diabetes mellitus with foot ulcer (principal); L97.521 Non-pressure chronic ulcer of other part of left foot limited to breakdown of skin; I48.91 Unspecified atrial fibrillation; I25.10 Atherosclerotic heart disease of native coronary artery without angina pectoris; E78.5 Hyperlipidemia, unspecified; E11.22 Type 2 diabetes mellitus with diabetic chronic kidney disease; I12.9 Hypertensive chronic kidney disease with stage 1 through stage 4 chronic kidney disease, or unspecified chronic kidney disease; N18.9 Chronic kidney disease, unspecified; K21.9 Gastro-esophageal reflux disease without esophagitis; Z87.891 Personal history of nicotine dependence; Z87.442 Personal history of urinary calculi ==

== ENCOUNTER 2017-05-06 12:03 | Inpatient (IN) | payer MEDICARE ==
[~2017-05-06] VITALS: Ht 172.7 cm; Wt 93.7 kg
--- NOTE | ~2017-05-06 | PR ---
[place], [place] PROGRESS NOTE NAME: MICHAEL ADLER UNIT #: [id number] ROOM: 415 DOCTOR: RODOLFO PEARL,ETIENNE Sanabria BIRTHDATE: [birth year] DOS: 05/08/2017 ADDENDUM After reviewing the case, I agree with the above plans as described. We will follow the patient up clinically and adjust accordingly. ETIENNE REYNOLDS MD CM:PNTRANS 0018 8 ETIENNE REYNOLDS MD 05/09/17127 interface
--- NOTE | ~2017-05-06 | PR ---
[place], [place] PROGRESS NOTE NAME: MICHAEL ADLER [facility] #: [id number] UNIT #: [id number] ROOM: 415 DOCTOR: RONDA CASTANEDAOCTOBER BIRTHDATE: [birth year] DOS: SUBJECTIVE: The patient is being followed for a left fourth toe osteomyelitis, which was demonstrated with x-ray. He is currently on Zosyn. Cultures are growing gram-negative rods and gram-positive cocci. He is currently on Zosyn, tolerating the antibiotic, does have some nausea. No vomiting. No diarrhea. No rash or itch. He has chronic cough with clear sputum. On reviewing prior cultures as well from May 06, he had Enterobacter. He has been afebrile. PHYSICAL EXAMINATION: VITAL SIGNS: Shoe temperature 97.6, pulse 71, respirations 18, BP 137/62. GENERAL: A 71-year-old male in no acute distress. HEAD, EYES. EARS, NOSE AND THROAT: Normocephalic. No thrush. LUNGS: Clear to auscultation bilaterally. Respirations even and unlabored. HEART: Regular rhythm. No murmur appreciated. ABDOMEN: Soft, nondistended. EXTREMITIES: Left lower extremity with mild edema. Dressing dry and intact. SKIN: Otherwise warm, dry and free of rashes. LABORATORY DATA: Cultures as reviewed above. WBC 6.6, platelets 204. Sed rate of 60, BUN 21, creatinine 1.97. LFTs within normal limits. C-reactive protein 1.46. ASSESSMENT: Left fourth toe osteomyelitis. PLAN: Per review of the chart, there was a significant discussion regarding amputation of his fourth toe. We await the input from Dr. Melchor, who has been taking care of him from a wound care standpoint, but Podiatry did recommend amputation, which would certainly shorten his length of antibiotic therapy. I had a long discussion with the patient regarding postoperative course would include 2-4 weeks of IV antibiotics depending upon initial presentation and much BUN is taken. Continue the Zosyn. Follow up on the cultures, growing gram-positive cocci. We will also give him 1 dose of vancomycin 1.25 grams IV x 1. Case discussed with Dr. Etienne Reynolds. OCTOBER TONYA BOND [place], [place] PROGRESS NOTE NAME: MICHAEL ADLER UNIT #: [id number] ROOM: 415 DOCTOR: RONDA CASTANEDA BIRTHDATE: [birth year] ETIENNE REYNOLDS MD CM:PNFIOR [phone] OCTOBER RONDA CASTANEDA 05/11/17 0521 interface
--- NOTE | ~2017-05-06 | PR ---
[place], [place] PROGRESS NOTE [id number] UNIT #: [id number] ROOM: 415 DOCTOR: MARLEN DOMINGUEZ DPM BIRTHDATE: [birth year] DOS: 05/08/2017 SUBJECTIVE: The patient presents for followup of ulceration with probable osteomyelitis of the fourth left toe. The [facility] a [facility] with Dr. Melchor. Dr. Sheets saw the patient yesterday. OBJECTIVE: Upon removal of the dressing, fourth left toe has erythema and edema with localized scant amount of purulent drainage. Toe is floppy, most likely from osteomyelitis. There are no signs of deep abscess. There is localized erythema as mentioned. DIAGNOSTIC STUDIES: Radiographs were consistent with osteomyelitis. Arterial Doppler showed right SFA [id number] stenosis. ASSESSMENT: Osteomyelitis, fourth left toe cellulitis. PLAN: Evaluation and management. I discussed with the patient that I recommend an amputation of the toe with continuation of IV antibiotics. This is my recommendation at this time. The patient, discussed the case with his wound care doctor, Dr. Melchor. They will discuss again plan, whether to consider continued conservative treatment or proceed with amputation of the digit. I discussed advantages and disadvantages of the amputation with the patient and his and they will discuss with Dr. Melchor. They would like to proceed with his recommendations and possible amputation early next week. If our assistance is needed to perform the procedure in any way, we will be glad to help out. Again the patient is Dr. Melchor's patient and I will defer judgment and ultimate surgical decision to him. Dr. Sheets can see the patient on Wednesday if need be and we will follow with the patient's care if our assistance is needed further. MARLEN DOMINGUEZ DPM CM:JOAQUÍN [id number] MARLEN DOMINGUEZ DPM 05/08/17 1307 interface
--- NOTE | ~2017-05-06 | CON ---
[place], [place] REPORT OF CONSULTATION NAME: MICHAEL ADLER [facility] #: [id number] UNIT #: [id number] ROOM: 415 DOCTOR: MARITZA PURIMARY JANE BIRTHDATE: [birth year] DOS: 05/07/2017 SUBJECTIVE: This patient is seen as consult for evaluation of a left foot ulcer and cellulitis. The patient does go to the wound care center and sees Dr. Melchor, I believe Dr. Melchor was consulted as well. The patient states he has had the ulcer for several months and it has gotten worse and got more swollen and he has had some drainage from the area. He does have a history of PAD and according to the patient, he was at [facility] in [place] about a month or so ago where he had vascular intervention in both legs. Dr. Melvin did this. He was admitted yesterday for infection of left fourth toe. PAST MEDICAL HISTORY: Positive for B12 deficiency, coronary artery disease, congestive heart failure, hypertension, gastroesophageal reflux disease, hypercholesterolemia, hypercoagulable state, diabetic neuropathy, obesity, atrial fibrillation. ALLERGIES: DEAR MEAT AND TUNA. CURRENT MEDICATIONS: Coumadin, Prilosec, Zocor, TriCor, Lanoxin, vitamin D, Aldactone, Cozaar, Coreg, baby aspirin, Phenergan, K-Dur, vancomycin, Zosyn, insulin, Restoril. OBJECTIVE: Upon lower extremity physical examination, pedal pulses are diminished bilaterally. There is diminished hair growth. Skin is thin and shiny. There is some delayed calf fill time noted to the digits. Mild dependent edema is seen bilaterally. Sensation is absent bilaterally consistent with diabetic neuropathy. No paresthesias are noted. The left fourth toe is edematous with erythema noted localized to the toe, does not extend proximal in to the forefoot, does not extend past the MPJ. He has a wound noted near the nail bed as well as the lateral side of the toe that both tract down to bone. The toe is floppy in nature consistent with bone damage, most likely from osteomyelitis, again edematous and erythematous. I see no signs of abscess. No expressible drainage. No fluctuance. His x-ray showed probable osteomyelitis. He has arterial Doppler ordered but this has not been done yet and there has been no culture done of the wound at this point. ASSESSMENT: Diabetes with cellulitis, left fourth toe, probable osteomyelitis and history of peripheral artery disease. PLAN: Consult is performed. Reviewed the x-rays. Arterial Doppler studies ordered of both legs to see if he still has PAD. He has a history of intervention about a month ago. I discussed with the patient and his treatment options anything from conservative treatment with IV antibiotics and wound care to possible amputation of the toe. The patient would like to save his toe if possible. He does see Dr. Melchor in the Wound [facility] Center and Dr. Melchor is consulted. We will await Dr. Melchor's input. I do not think the patient has an abscess at this point, I think he has chronic osteomyelitis, which is cause of floppy digit. I will consult Infectious Disease. I will wait on the results of his arterial Dopplers and continue with wound care at this time. If the patient does have any amputation, we may need to stop the Coumadin [place], [place] REPORT OF CONSULTATION NAME: MICHAEL ADLER UNIT #: [id number] ROOM: 415 DOCTOR: MARY JANE SALAS DPM BIRTHDATE: [birth year] because of bleeding issues. He will be followed up tomorrow by Dr. Churchill. Again, cultures were done on this visit and will be sent for Gram stain aerobic and anaerobic culture and sensitivity. Thank you for the opportunity to take part in care of this patient. MARY JANE SALAS DPM CM:CONSTR:REPORT OF CONSULTATION 1109 05/07/17 1307 interface
--- NOTE | ~2017-05-06 | PR ---
[place], [place] PROGRESS NOTE NAME: MICHAEL ADLER [facility] #: [id number] UNIT #: [id number] ROOM: 415 DOCTOR: MARY JANE SALAS DPM BIRTHDATE: [birth year] DOS: 05/10/2017 SUBJECTIVE: The patient was seen for followup of osteomyelitis and ulcer of left fourth toe. The patient has been seen by Dr. Melchor and plan is for Dr. Melchor to take him to surgery to amputate the toe on Wednesday. OBJECTIVE: Neurovascular status is unchanged. Toe is unchanged, still some edema and erythema. No signs of abscess or purulent drainage at this time. The toe is floppy in nature. Ulcer is still present. ASSESSMENT: Osteomyelitis, cellulitis, left fourth toe; diabetes. PLAN: Evaluation and management discussed with the patient. Dr. Melchor will take over his care and proceed with the amputation. We will follow him up as needed. If he has any need for any further foot or ankle issues in the future, he can call us. MARY JANE SALAS DPM CM:PNFIOR [id number] MARY JANE SALAS DPM 05/10/17 1257 interface
[~2017-05-06 12:03] MED LIST changes: -SODIUM BICARBO325 M1 PO
[2017-05-06 12:10] VITALS: BP 128/52
[2017-05-06 12:39] LABS: BASO # 0.1 10*3/uL (0.0-0.1); BASO % 0.7 % (0.0-1.0); EOS # 0.2 10*3/uL (0.0-0.4); EOS % 3.1 % (1.0-4.0); HEMATOCRIT 29.2 % (42.0-52.0); HEMOGLOBIN 9.4 g/dl (14.0-18.0); LYMPH # 1.1 10*3/uL (1.3-4.4); LYMPH % 15.2 % (27.0-41.0); MEAN CELL VOLUME 84.9 fl (80.0-94.0); MEAN CORPUSCULAR HGB 27.3 pg (27.0-31.0); MEAN CORPUSCULAR HGB CONC 32.2 g/dl (33.0-37.0); MEAN PLATELET VOLUME 10.5 fl (9.6-12.3); MONO # 0.3 10*3/uL (0.1-1.0); MONO % 4.4 % (3.0-9.0); NEUT # 5.4 10*3/uL (2.3-7.9); NEUT % 76.2 % (47.0-73.0); PLATELET COUNT AUTOMATED 219 10*3/uL (130-400); RED BLOOD COUNT 3.44 10*6/uL (4.50-5.90); WHITE BLOOD COUNT 7.1 10*3/uL (4.8-10.8)
[2017-05-06 12:52] LABS: CREATININE 2.05 mg/dL (0.70-1.30); POTASSIUM 3.6 mmol/L (3.5-5.1)
[2017-05-06 13:53] VITALS: BP 145/68
--- NOTE | 2017-05-06 14:00 | NUR ---
Time: 1400 A 71 year old M admitted to 4E under services of SONA MCGARRY DO. Pt. arrived via stretcher from ER. Chief complaint: WOUNDS TO LEFT FOOT. DR SCOTT IN TO SEE PT. SIMEON SANTIAGO
[2017-05-06 16:00] VITALS: BP 149/64
--- NOTE | 2017-05-06 16:08 | NUR ---
HAS LIST OF HOME MEDICATIONS. LIST ON CHART.
[2017-05-06] MEDS ORDERED: SODIUM BICARBO325 M1 PO (16:17)
--- NOTE | 2017-05-06 16:26 | NUR ---
SPOKE WITH DR ENRIQUE REGARDING CONSULT, NO NEW ORDERS SPOKE WITH ISAIAH AT DR WADE'S OFFICE REGARDING CONSULT, REQUESTS FACE SHEET TO BE FAXED.
--- NOTE | 2017-05-06 18:55 | NUR ---
NO OBVIOUS CHANGES NOTED THIS SHIFT.
[2017-05-06 20:00] VITALS: BP 152/67
[2017-05-07] VITALS: BP 146/70
[2017-05-07 06:02] LABS: ALBUMIN 2.5 gm/dl (3.1-4.5); CREATININE 1.77 mg/dL (0.70-1.30); FREE T4 1.16 ng/dl (0.76-1.46); PHOSPHOROUS 1.9 mg/dL (2.5-4.9); POTASSIUM 3.3 mmol/L (3.5-5.1); TOTAL PROTEIN 6.1 gm/dL (6.4-8.2)
[2017-05-07 06:06] LABS: THYROID STIM HORMONE (HS) 1.58 uIU/ml (0.358-4.75)
[2017-05-07 06:15] LABS: BASO # 0.1 10*3/uL (0.0-0.1); BASO % 0.7 % (0.0-1.0); EOS # 0.3 10*3/uL (0.0-0.4); EOS % 3.5 % (1.0-4.0); HEMATOCRIT 28.2 % (42.0-52.0); HEMOGLOBIN 8.8 g/dl (14.0-18.0); LYMPH # 1.1 10*3/uL (1.3-4.4); LYMPH % 13.6 % (27.0-41.0); MEAN CELL VOLUME 84.9 fl (80.0-94.0); MEAN CORPUSCULAR HGB 26.5 pg (27.0-31.0); MEAN CORPUSCULAR HGB CONC 31.2 g/dl (33.0-37.0); MEAN PLATELET VOLUME 10.9 fl (9.6-12.3); MONO # 0.4 10*3/uL (0.1-1.0); MONO % 4.4 % (3.0-9.0); NEUT # 6.2 10*3/uL (2.3-7.9); NEUT % 77.3 % (47.0-73.0); PLATELET COUNT AUTOMATED 220 10*3/uL (130-400); RED BLOOD COUNT 3.32 10*6/uL (4.50-5.90); RED CELL DISTRI WIDTH 14.9 % (0-14.5)
[2017-05-07 06:20] LABS: ACT PARTIAL THROMBO TIME 36.9 SECONDS (20.8-31.5); INTERNATIONAL NORM RATIO 2.3 (2.0-3.5)
[2017-05-07 08:00] VITALS: BP 110/56
[2017-05-07 08:00] LABS: VITAMIN D, 25-HYDROXY 19.9 ng/mL (30-100)
--- NOTE | 2017-05-07 08:00 | NUR ---
HOB ELEVATED, EASY RESPIRATIONS WITH SKIN W/D. PT CONTINUES TO C/O NAUSEA, DISCUSSED TIME FRAME OF PRN MEDICATIONS. PT & VOICES UNDERSTANDING. NO EMESIS PER PT. DR LAMAS IN TO SEE PT & MADE AWARE OF PT C/O. SEE SHIFT ASSESSMENT.
--- NOTE | 2017-05-07 09:00 | NUR ---
Humanities Coordinator in to talk to patient. Patient states lives at home with . There are few steps in the home. Physician: jailene kim [facility]acy: [facility]: [facility] Patient's level of ADLs: MINIMAL ASSIST Patient has working utilities: all working DME: none Follow-up physician's appointment after d/c: will be made by hosptialist nurse director upon discharge Does patient want to access PORTAL?: no Discharge plan discussed with patient, patient lives at home with is , was present, patient states he goes to the wound clinic for his foot wound, he states he also has home health, he thinks is [facility], media planner / buyer will call [facility] and see if they area patient's company, also discussed with patient and a short term [facility] if he would need iv antibiotics, patient and stated that didn't really want that, also discussed with them home iv antibiotics if patient would need this and they wanted to think about this, case management and media planner / buyer will follow. COURT [place]
--- NOTE | 2017-05-07 09:45 | NUR ---
DR FIERRO IN TO SEE PT.
--- NOTE | 2017-05-07 10:31 | NUR ---
MARQUIS, DR NERIQUE'S STUDENT IN TO PT & VIEWED FOOT.
--- NOTE | 2017-05-07 10:56 | NUR ---
VITORMICHAEL [id number] Please refer to the physician's history and physical for past medical history, comorbid conditions, and allergies. Diagnosis: CELLULITIS OF LEFT FOOT Andrew Score: 16,AT RISK WOUND DESCRIPTIONS: Location of the wound: left 4th toe inner Type of wound: DFU Thickness: Full Size: 1.0cm x 0.5cm x 0.9cm Tunneling: none Undermining: none Sinus Tract: none Presence of Exudate: Purulent Amount: Light Color: Yellow, red Odor: None Periwound Skin Appearance: Macerated Wound edges: epibole Pain (associated with wound): none at time of assessment How does patient state this happened? pt state it started about 2 weeks ago Location of the wound: top of left forth toe Type of wound: DFU Thickness: Full Size: 0.5cm x 1.0cm x 0.4cm Tunneling: none Undermining: none Sinus Tract: none Presence of Exudate: Purulent Amount: Light Color: Yellow, red Odor: None Periwound Skin Appearance: Erythema Wound edges: approximated Pain (associated with wound): none at time of assessemnt How does patient state this happened? pt stated it started about 2 weeks ago Surface the patient is resting on: Isoflex SKIN PREVENTION RECOMMENDATION: 1. Pressure redistribution support surface as appropriate 2. Elevate heels 3. Remove boots/TEDS every shift and reapply 4. Head of bed 30 degrees as tolerated 5. Assess nutrition and hydration 6. Manage moisture 7. Avoid the use of containment devices while in bed 8. Use absorptive products on surfaces limit layers of linens on bed 9. Turn and reposition every 1-2 hours in bed and every 1 hour in chair as tolerated 10. Weight shifts every 15 minutes while up in chair 11. Offloading with pillows or device to keep heels elevated off bed 12. Monitor skin at least every shift 13. Inspect under medical devices twice a day WOUND TREATMENT RECOMMENDATIONS: Await orders from podiatry and patient is wound care patient of Dr. Melchor.
--- NOTE | 2017-05-07 10:59 | NUR ---
DR SALAS IN TO SEE PT & CHANGED KATI, WOUND CULTURE OBTAINED.
--- NOTE | 2017-05-07 11:54 | NUR ---
JESSICA AT DR YANG'S OFFICE NOTIFIED OF CONSULT.
[2017-05-07 12:00] VITALS: BP 127/58
--- NOTE | 2017-05-07 12:33 | NUR ---
DR ENRIQUE IN TO SEE PT, ASKED DR REGARDING WOUND CARE ORDERS. PER DR ENRIQUE, ONLY DSD IS NECESSARY. WILL INFORM ALICIA ADAN.
[2017-05-07 16:00] VITALS: BP 127/58
[2017-05-07 20:00] VITALS: BP 138/60
[2017-05-08] VITALS: BP 132/63
[2017-05-08 06:18] LABS: BASO % 0.6 % (0.0-1.0); EOS # 0.4 10*3/uL (0.0-0.4); EOS % 6.4 % (1.0-4.0); HEMOGLOBIN 8.6 g/dl (14.0-18.0); LYMPH # 1.2 10*3/uL (1.3-4.4); LYMPH % 18.6 % (27.0-41.0); MEAN CELL VOLUME 86.5 fl (80.0-94.0); MEAN CORPUSCULAR HGB 27.6 pg (27.0-31.0); MEAN CORPUSCULAR HGB CONC 31.9 g/dl (33.0-37.0); MEAN PLATELET VOLUME 10.7 fl (9.6-12.3); MONO # 0.3 10*3/uL (0.1-1.0); MONO % 4.7 % (3.0-9.0); NEUT # 4.5 10*3/uL (2.3-7.9); NEUT % 68.8 % (47.0-73.0); PLATELET COUNT AUTOMATED 204 10*3/uL (130-400); RED BLOOD COUNT 3.12 10*6/uL (4.50-5.90); WHITE BLOOD COUNT 6.6 10*3/uL (4.8-10.8)
[2017-05-08 06:50] LABS: ALBUMIN 2.3 gm/dl (3.1-4.5); CREATININE 1.97 mg/dL (0.70-1.30); PHOSPHOROUS 2.3 mg/dL (2.5-4.9); POTASSIUM 3.6 mmol/L (3.5-5.1); TOTAL PROTEIN 5.6 gm/dL (6.4-8.2)
[2017-05-08 07:05] LABS: DIGOXIN 1.11 ng/ml (0.8-2.0)
--- NOTE | 2017-05-08 07:48 | NUR ---
C/O NAUSEA WITHOUT VOMITING. ZOFRAN GIVEN PER ORDER. DENIES OTHER NEEDS.
[2017-05-08 08:00] VITALS: BP 142/63
--- NOTE | 2017-05-08 08:30 | NUR ---
PATIENT DENIES FURTHER NAUSEA AND VOMITING.
--- NOTE | 2017-05-08 10:10 | NUR ---
DR. ENRIQUE HERE TO SEE PATIENT. DRESSING CHANGED. NO NEW ORDERS.
[2017-05-08 12:00] VITALS: BP 127/65
[2017-05-08 16:00] VITALS: BP 137/62
--- NOTE | 2017-05-08 16:00 | NUR ---
PT. IS RESTING COMFORTABLY IN BED WITH VISITOR AT BEDSIDE. HOB IS ELEVATED, CALL LIGHT WITHIN REACH. PT. HAS C/O NAUSEA AT THIS PRESENT TIME, SEE SHIFT ASSESSMENT.
--- NOTE | 2017-05-08 16:29 | NUR ---
PRN ZOFRAN GIVEN PER PT. REQUEST FOR C/O NAUSEA. WILL MONITOR EFFECT.
--- NOTE | 2017-05-08 17:00 | NUR ---
PRN ZOFRAN EFFECTIVE PT. VERBALIZED N/O OF NAUSEA AT THIS TIME.
[2017-05-08 20:00] VITALS: BP 146/65
--- NOTE | 2017-05-08 23:35 | NUR ---
PRN ZOFRAN GIVEN PER PT. REQUEST FOR C/O NAUSEA, WILL MONITOR EFFECT.
[2017-05-09] VITALS: BP 153/68
[2017-05-09 06:29] LABS: BASO % 0.6 % (0.0-1.0); EOS # 0.3 10*3/uL (0.0-0.4); HEMATOCRIT 26.5 % (42.0-52.0); HEMOGLOBIN 8.3 g/dl (14.0-18.0); LYMPH # 1.1 10*3/uL (1.3-4.4); LYMPH % 15.5 % (27.0-41.0); MEAN CELL VOLUME 86.6 fl (80.0-94.0); MEAN CORPUSCULAR HGB 27.1 pg (27.0-31.0); MEAN CORPUSCULAR HGB CONC 31.3 g/dl (33.0-37.0); MONO # 0.3 10*3/uL (0.1-1.0); MONO % 4.4 % (3.0-9.0); NEUT % 74.2 % (47.0-73.0); PLATELET COUNT AUTOMATED 182 10*3/uL (130-400); RED BLOOD COUNT 3.06 10*6/uL (4.50-5.90); WHITE BLOOD COUNT 6.8 10*3/uL (4.8-10.8)
[2017-05-09 07:04] LABS: ALBUMIN 2.4 gm/dl (3.1-4.5); CREATININE 2.15 mg/dL (0.70-1.30)
[2017-05-09 07:06] LABS: TOTAL PROTEIN 5.6 gm/dL (6.4-8.2)
[2017-05-09 08:00] VITALS: BP 134/72
--- NOTE | 2017-05-09 08:22 | NUR ---
PATIENT IS RESTING IN BED COMFORTABLY. PATIENT HAS NO DIFFICULTIES AMBULATING TO THE RESTROOM AND DENIES SOB, PAIN, OR DISCOMFORT AT THIS TIME. PATIENT HAS NUMBNESS IN LOWER EXTREMITIES AND A WOUND DRESSING ON THE LEFT FOOT. PATIENT HAS NO FURTHER REQUESTS AT THIS TIME, CALL LIGHT WITHIN REACH. SEE SHIFT ASSESSMENT.
[2017-05-09 08:56] LABS: INTERNATIONAL NORM RATIO 1.8 (2.0-3.5)
--- NOTE | 2017-05-09 10:10 | NUR ---
PATIENT WAS GIVEN ZOFRAN PER PATIENT REQUEST OF NAUSEA. WILL CONTINUE TO MONITOR AND REASSESS.
--- NOTE | 2017-05-09 10:11 | NUR ---
NOTIFIED ABOUT ZOSYN SENSITIVITY IN HEMATOLOGY REPORT.
[2017-05-09 12:00] VITALS: BP 136/64
--- NOTE | 2017-05-09 15:03 | NUR ---
PATIENT IS IN BED WITH FAMILY MEMBER AT THE BEDSIDE. WAS IN TO SEE THE PATIENT FOR A SURGERY CONSULT ON THE LEFT FOOT. PATIENT IS ALERT AND ORIENTED. PATIENT IS MONITORED WITH A PULSE IN THE 60-70'S. PATIENT IS AMBULATORY AND HAS HAD NO COMPLAINTS OF SOB, PAIN, OR DISCOMFORT. CALL LIGHT IS WITHIN REACH, SEE SHIFT ASSESSMENT.
[2017-05-09 16:00] VITALS: BP 135/60
[2017-05-09 20:00] VITALS: BP 128/50
--- NOTE | 2017-05-09 20:10 | NUR ---
PT. IS RESTING COMFORTABLY IN BED AT THIS TIME NOT EXPRESSING AND CONCERNS OR COMPLAINTS. HOB IS ELEVATED, WHEELS LOCKED, BED LOW AND CALL LIGHT WITHIN REACH, SEE SHIFT ASSESSMENT.
[2017-05-10] VITALS: BP 126/49
[2017-05-10 06:28] LABS: BASO % 0.5 % (0.0-1.0); EOS # 0.2 10*3/uL (0.0-0.4); EOS % 3.2 % (1.0-4.0); HEMOGLOBIN 8.1 g/dl (14.0-18.0); LYMPH % 13.9 % (27.0-41.0); MEAN CELL VOLUME 87.8 fl (80.0-94.0); MEAN CORPUSCULAR HGB 27.4 pg (27.0-31.0); MEAN CORPUSCULAR HGB CONC 31.2 g/dl (33.0-37.0); MEAN PLATELET VOLUME 10.7 fl (9.6-12.3); MONO # 0.3 10*3/uL (0.1-1.0); MONO % 4.2 % (3.0-9.0); NEUT # 5.8 10*3/uL (2.3-7.9); NEUT % 77.7 % (47.0-73.0); PLATELET COUNT AUTOMATED 190 10*3/uL (130-400); RED BLOOD COUNT 2.96 10*6/uL (4.50-5.90); RED CELL DISTRI WIDTH 15.3 % (0-14.5); WHITE BLOOD COUNT 7.4 10*3/uL (4.8-10.8)
[2017-05-10 06:50] LABS: ALBUMIN 2.4 gm/dl (3.1-4.5); CREATININE 2.3 mg/dL (0.70-1.30)
[2017-05-10 06:52] LABS: TOTAL PROTEIN 5.8 gm/dL (6.4-8.2)
[2017-05-10 08:00] VITALS: BP 134/66
--- NOTE | 2017-05-10 08:45 | NUR ---
In to talk to patient, at bedside. Patient and stated [facility] has [facility] and would like that to resume upon discharge. will need resume home health order prior to discharge.
--- NOTE | 2017-05-10 09:00 | NUR ---
case management visits with patient, present, patient will be going home when able and will resume [facility]
--- NOTE | 2017-05-10 10:01 | NUR ---
PATIENT IS SITTING AT THE BEDSIDE WITH A COUGH PRODUCING CLEAR SPUTUM. PATIENTS LUNGS ARE CLEAR BUT PARTIALLY DIMINISHED UPON ASSESSMENT. PATIENT IS ON RA AND DENIES ANY DYSPNEA OR SOB. PATIENT HAS BEEN RETURNED TO A REG DIET UNTIL WEDNESDAY. PATIENT HAS NO COMPLAINTS OF PAIN, DISCOMFORT, OR NAUSEA. CALL LIGHT IS WITHIN REACH, SEE SHIFT ASSESSMENT.
--- NOTE | 2017-05-10 11:24 | NUR ---
PATIENT WAS GIVEN IV ZOFRAN PER PT REQUEST FOR NAUSEA. WILL CONTINUE TO MONITOR AND REASSESS.
[2017-05-10 12:00] VITALS: BP 143/64
--- NOTE | 2017-05-10 12:30 | NUR ---
PATIENT VERBALIZES THAT NAUSEA HAS BEEN RELIEVED BY PRN MEDICATION.
--- NOTE | 2017-05-10 13:31 | NUR ---
PATIENT IS SITTING UP IN THE BED WITH FAMILY AT THE BEDSIDE. PATIENT IS AWAKE AND ALERT AND RESPONDS APPROPRIATELY TO QUESTIONS. PATIENT DENIES ANY PAIN OR DISCOMFORT. PATIENT DENIES ANY SOB WHILE IN BED. CALL LIGHT IS WITHIN REACH. SEE SHIFT ASSESSMENT.
[2017-05-10 16:00] VITALS: BP 125/60
--- NOTE | 2017-05-10 17:40 | NUR ---
PATIENT IS RESTING COMFORTABLY IN BED. FAMILY IS AT THE BEDSIDE AND PATIENT DENIES ANY SOB. PATIENT IS ABLE TO AMBULATE WITHOUT ASSIST AND REPOSITIONS SELF THROUGHOUT THE DAY. CALL LIGHT SYSTEM REINFORCED. NO FURTHER REQUESTS AT THIS TIME. SEE SHIFT ASSESSMENT.
[2017-05-10 19:35] VITALS: BP 145/74
--- NOTE | 2017-05-10 23:40 | NUR ---
Pharmacy called concerning order for IV vitamin K, recommended PO vitamin K. Dr. Mcrae called and will check orders.
[2017-05-11] VITALS: BP 137/63
--- NOTE | 2017-05-11 02:54 | NUR ---
Requested and medicated with Zofran at 0035 for complaints of nausea. Zofran effective to decrease nausea and allow to rest quietly. Will continue to monitor.
--- NOTE | 2017-05-11 06:44 | NUR ---
Requested and medicated with Zofran for complaints of nausea at 0623. Will continue to monitor.
[2017-05-11 07:27] LABS: POTASSIUM 3.9 mmol/L (3.5-5.1)
[2017-05-11 07:34] LABS: ALBUMIN 2.4 gm/dl (3.1-4.5); CREATININE 2.14 mg/dL (0.70-1.30); TOTAL PROTEIN 5.8 gm/dL (6.4-8.2)
[2017-05-11 08:00] VITALS: BP 146/70
--- NOTE | 2017-05-11 09:00 | NUR ---
case management visits with patient, present, again discussed with them a short term [facility] for rehab and possibly iv antibiotics, wanted patient to go to a SNF, but patient wasn't inagreement with this yet. patient stated he wanted to wait and see if he would need iv antibiotics, then he would make a decision, case management will follow
--- NOTE | 2017-05-11 09:00 | NUR ---
PT MEDICATED WITH NORCO 1 TAB PO FOR C/O BILATERAL LOWER QUAD ABD PAIN.
--- NOTE | 2017-05-11 09:48 | NUR ---
PT STATED NORCO WAS EFFECTIVE IN EASING HIS ABD PAIN.
[2017-05-11 12:00] VITALS: BP 137/70
[2017-05-11 16:00] VITALS: BP 147/69
[2017-05-11 20:00] VITALS: BP 146/56
[2017-05-12] VITALS (8 sets, daily range): BP systolic 107–158; BP diastolic 48–88
--- NOTE | 2017-05-12 00:40 | NUR ---
RESTING IN BED WITH EYES CLOSED. NO SIGNS OR SYMPTOMS OF DISTRESS NOTED. AROUSES TO VERBAL STIMULI. WILL CONTINUE TO MONITOR. CALL LIGHT IN REACH.
[2017-05-12 05:55] LABS: BASO # 0.1 10*3/uL (0.0-0.1); BASO % 0.8 % (0.0-1.0); EOS # 0.2 10*3/uL (0.0-0.4); EOS % 3.5 % (1.0-4.0); HEMATOCRIT 25.9 % (42.0-52.0); HEMOGLOBIN 8.1 g/dl (14.0-18.0); LYMPH # 1.1 10*3/uL (1.3-4.4); LYMPH % 16.7 % (27.0-41.0); MEAN CELL VOLUME 87.2 fl (80.0-94.0); MEAN CORPUSCULAR HGB 27.3 pg (27.0-31.0); MEAN CORPUSCULAR HGB CONC 31.3 g/dl (33.0-37.0); MEAN PLATELET VOLUME 10.8 fl (9.6-12.3); MONO # 0.3 10*3/uL (0.1-1.0); MONO % 4.2 % (3.0-9.0); NEUT # 4.8 10*3/uL (2.3-7.9); NEUT % 74.5 % (47.0-73.0); PLATELET COUNT AUTOMATED 191 10*3/uL (130-400); RED BLOOD COUNT 2.97 10*6/uL (4.50-5.90); RED CELL DISTRI WIDTH 15.4 % (0-14.5); WHITE BLOOD COUNT 6.5 10*3/uL (4.8-10.8)
[2017-05-12 06:16] LABS: CREATININE 2.06 mg/dL (0.70-1.30); POTASSIUM 3.9 mmol/L (3.5-5.1)
[2017-05-12 06:30] LABS: INTERNATIONAL NORM RATIO 1.2 (2.0-3.5)
--- NOTE | 2017-05-12 17:14 | NUR ---
DR ENRIQUE CALLED RE: WEIGHT BEAR STATUS. DR ENRIQUE STATES PT IS FULL WEIGHT BEARING.
--- NOTE | 2017-05-12 19:47 | NUR ---
PATIENT LYING IN BED, DENIES ANY PAIN AT THIS TIME, STATED HE IS ROTATING ICE PACK ON FOOT. BANDAGE DRY AND INTACT. WILL CONTINUE TO MONITOR. PATIENT LEFT WITH CALL LIGHT IN REACH.
--- NOTE | 2017-05-12 21:26 | NUR ---
PATIENT STATES HE IS FEELING NAUSEATED. ZOFRAN GIVEN. WILL REASSESS.
--- NOTE | 2017-05-12 22:30 | NUR ---
ZOFRAN EFFECTIVE FOR NAUSEA.
--- NOTE | 2017-05-12 22:43 | NUR ---
24 HR chart check completed.
[2017-05-13] VITALS: BP 139/48
[2017-05-13 06:41] LABS: RED BLOOD COUNT 3.09 10*6/uL (4.50-5.90); WHITE BLOOD COUNT 6.8 10*3/uL (4.8-10.8)
[2017-05-13 06:42] LABS: BASO # 0.1 10*3/uL (0.0-0.1); BASO % 0.7 % (0.0-1.0); EOS # 0.2 10*3/uL (0.0-0.4); EOS % 2.8 % (1.0-4.0); HEMATOCRIT 26.8 % (42.0-52.0); HEMOGLOBIN 8.3 g/dl (14.0-18.0); LYMPH # 1.1 10*3/uL (1.3-4.4); LYMPH % 15.9 % (27.0-41.0); MEAN CELL VOLUME 86.7 fl (80.0-94.0); MEAN CORPUSCULAR HGB 26.9 pg (27.0-31.0); MEAN PLATELET VOLUME 11.1 fl (9.6-12.3); MONO # 0.3 10*3/uL (0.1-1.0); MONO % 4.3 % (3.0-9.0); NEUT # 5.2 10*3/uL (2.3-7.9); NEUT % 75.9 % (47.0-73.0); PLATELET COUNT AUTOMATED 211 10*3/uL (130-400); RED CELL DISTRI WIDTH 15.6 % (0-14.5)
[2017-05-13 06:59] LABS: CREATININE 1.94 mg/dL (0.70-1.30); POTASSIUM 3.9 mmol/L (3.5-5.1)
[2017-05-13 07:04] LABS: INTERNATIONAL NORM RATIO 1.1 (2.0-3.5)
[2017-05-13 08:00] VITALS: BP 122/56
--- NOTE | 2017-05-13 09:00 | NUR ---
case management visits with patient, present, patient was not feeling well at this time and didn't want to discuss discharge plans, case management will see at a later time
[2017-05-13 12:00] VITALS: BP 124/60
[2017-05-13] MEDS ORDERED: LEVOFLOXACIN500 MG PO (13:49)
[2017-05-13] MEDS ORDERED: NATURE'S BLEND F1 MG PO (14:04)
[2017-05-13] MEDS ORDERED: Vitamin D PO (14:04)
--- NOTE | 2017-05-13 15:25 | NUR ---
Discharge instructions reviewed with patient/family. Patient receptive and verbalizes understanding. Follow-up care arranged. Written instructions given to patient/family. LESLYE GARCES
--- NOTE | 2017-05-14 09:03 | NUR ---
Patient discharged to home to [facility] with [facility]. Faxed order and clincals.
== END 2017-05-13 15:25 | disposition home health service (06) | DRG 616 ==
LOC: ED 12:03 → EDHOLD 12:16 → 4E 12:16
PROVIDERS: Emergency Medicine; Family Medicine; Hospitalist; Internal Medicine; Internal Medicine Nephrology; Student in an Organized Health Care Education/Training Program; ADMIT Internal Medicine
PROC: 0Y6W0Z1 Detachment at Left 4th Toe, High, Open Approach (ICD-10-PCS; principal; 2017-05-12)
DX: E11.69 Type 2 diabetes mellitus with other specified complication (principal); E43 Unspecified severe protein-calorie malnutrition; A04.8 Other specified bacterial intestinal infections; E11.22 Type 2 diabetes mellitus with diabetic chronic kidney disease; D68.59 Other primary thrombophilia; E11.65 Type 2 diabetes mellitus with hyperglycemia; E11.51 Type 2 diabetes mellitus with diabetic peripheral angiopathy without gangrene; M86.8X7 Other osteomyelitis, ankle and foot; I50.22 Chronic systolic (congestive) heart failure; I13.0 Hypertensive heart and chronic kidney disease with heart failure and stage 1 through stage 4 chronic kidney disease, or unspecified chronic kidney disease; L03.116 Cellulitis of left lower limb; E11.42 Type 2 diabetes mellitus with diabetic polyneuropathy; E11.621 Type 2 diabetes mellitus with foot ulcer; I48.0 Paroxysmal atrial fibrillation; D64.9 Anemia, unspecified; N18.3 Chronic kidney disease, stage 3 (moderate); Z79.4 Long term (current) use of insulin; L97.529 Non-pressure chronic ulcer of other part of left foot with unspecified severity; E78.00 Pure hypercholesterolemia, unspecified; K21.9 Gastro-esophageal reflux disease without esophagitis; E55.9 Vitamin D deficiency, unspecified; I25.10 Atherosclerotic heart disease of native coronary artery without angina pectoris; E53.8 Deficiency of other specified B group vitamins; B96.89 Other specified bacterial agents as the cause of diseases classified elsewhere; E66.09 Other obesity due to excess calories; Z90.49 Acquired absence of other specified parts of digestive tract; Z95.1 Presence of aortocoronary bypass graft; Z91.018 Allergy to other foods; Z79.899 Other long term (current) drug therapy; Z79.82 Long term (current) use of aspirin; Z98.49 Cataract extraction status, unspecified eye; Z87.891 Personal history of nicotine dependence; Z82.49 Family history of ischemic heart disease and other diseases of the circulatory system; Z83.3 Family history of diabetes mellitus; Z83.6 Family history of other diseases of the respiratory system; Z81.2 Family history of tobacco abuse and dependence; Z80.8 Family history of malignant neoplasm of other organs or systems; Z68.31 Body mass index [BMI] 31.0-31.9, adult; E11.628 Type 2 diabetes mellitus with other skin complications; L03.032 Cellulitis of left toe

== ENCOUNTER → 2017-05-06 | Outpatient (CLI) | payer MEDICARE ==
[~2017-05-06] MED LIST changes: +SODIUM BICARBO325 M1 PO
== END | disposition home or self-care (01) ==
LOC: WOUNDCARE 10:52
DX: E11.621 Type 2 diabetes mellitus with foot ulcer (principal); L97.521 Non-pressure chronic ulcer of other part of left foot limited to breakdown of skin; I48.91 Unspecified atrial fibrillation; I25.10 Atherosclerotic heart disease of native coronary artery without angina pectoris; E78.5 Hyperlipidemia, unspecified; E11.22 Type 2 diabetes mellitus with diabetic chronic kidney disease; I12.9 Hypertensive chronic kidney disease with stage 1 through stage 4 chronic kidney disease, or unspecified chronic kidney disease; N18.9 Chronic kidney disease, unspecified; E11.36 Type 2 diabetes mellitus with diabetic cataract; Z87.891 Personal history of nicotine dependence

== ENCOUNTER → 2017-05-20 | Outpatient (CLI) | payer MEDICARE ==
[~2017-05-20] MED LIST changes: +SODIUM BICARBO325 M1 PO; +Vitamin D PO
== END | disposition home or self-care (01) ==
LOC: WOUNDCARE 02:48
DX: T87.89 Other complications of amputation stump (principal); E11.621 Type 2 diabetes mellitus with foot ulcer; L97.521 Non-pressure chronic ulcer of other part of left foot limited to breakdown of skin; E11.69 Type 2 diabetes mellitus with other specified complication; M86.272 Subacute osteomyelitis, left ankle and foot; I25.10 Atherosclerotic heart disease of native coronary artery without angina pectoris; I48.91 Unspecified atrial fibrillation; E78.5 Hyperlipidemia, unspecified; E11.22 Type 2 diabetes mellitus with diabetic chronic kidney disease; I12.9 Hypertensive chronic kidney disease with stage 1 through stage 4 chronic kidney disease, or unspecified chronic kidney disease; N18.9 Chronic kidney disease, unspecified; Z87.891 Personal history of nicotine dependence; Y83.5 Amputation of limb(s) as the cause of abnormal reaction of the patient, or of later complication, without mention of misadventure at the time of the procedure

== ENCOUNTER → 2017-05-27 | Outpatient (CLI) | payer MEDICARE | END | disposition home or self-care (01) | LOC: WOUNDCARE 10:18 | DX: T81.89XD Other complications of procedures, not elsewhere classified, subsequent encounter (principal); E11.69 Type 2 diabetes mellitus with other specified complication; M86.272 Subacute osteomyelitis, left ankle and foot; I48.91 Unspecified atrial fibrillation; I25.10 Atherosclerotic heart disease of native coronary artery without angina pectoris; E11.22 Type 2 diabetes mellitus with diabetic chronic kidney disease; I12.9 Hypertensive chronic kidney disease with stage 1 through stage 4 chronic kidney disease, or unspecified chronic kidney disease; N18.9 Chronic kidney disease, unspecified; E78.5 Hyperlipidemia, unspecified; S80.812A Abrasion, left lower leg, initial encounter; E11.36 Type 2 diabetes mellitus with diabetic cataract; Z87.891 Personal history of nicotine dependence; Z89.422 Acquired absence of other left toe(s); Y83.8 Other surgical procedures as the cause of abnormal reaction of the patient, or of later complication, without mention of misadventure at the time of the procedure; X58.XXXA Exposure to other specified factors, initial encounter; Y93.89 Activity, other specified; Y92.89 Other specified places as the place of occurrence of the external cause; Y99.8 Other external cause status ==

== ENCOUNTER → 2017-06-01 | Outpatient (CLI) | payer MEDICARE | END | disposition home or self-care (01) | LOC: WOUNDCARE 01:13 | DX: T81.89XD Other complications of procedures, not elsewhere classified, subsequent encounter (principal); S80.811D Abrasion, right lower leg, subsequent encounter; E11.69 Type 2 diabetes mellitus with other specified complication; M86.272 Subacute osteomyelitis, left ankle and foot; E11.22 Type 2 diabetes mellitus with diabetic chronic kidney disease; I12.9 Hypertensive chronic kidney disease with stage 1 through stage 4 chronic kidney disease, or unspecified chronic kidney disease; N18.9 Chronic kidney disease, unspecified; I48.91 Unspecified atrial fibrillation; I25.10 Atherosclerotic heart disease of native coronary artery without angina pectoris; E78.5 Hyperlipidemia, unspecified; E11.36 Type 2 diabetes mellitus with diabetic cataract; Z89.422 Acquired absence of other left toe(s); Y83.8 Other surgical procedures as the cause of abnormal reaction of the patient, or of later complication, without mention of misadventure at the time of the procedure; Z87.891 Personal history of nicotine dependence; X58.XXXD Exposure to other specified factors, subsequent encounter ==

== ENCOUNTER → 2017-06-08 | Outpatient (CLI) | payer MEDICARE | END | disposition home or self-care (01) | LOC: WOUNDCARE 01:48 | DX: T81.89XD Other complications of procedures, not elsewhere classified, subsequent encounter (principal); S80.812D Abrasion, left lower leg, subsequent encounter; E11.69 Type 2 diabetes mellitus with other specified complication; M86.272 Subacute osteomyelitis, left ankle and foot; I48.91 Unspecified atrial fibrillation; I25.10 Atherosclerotic heart disease of native coronary artery without angina pectoris; E78.5 Hyperlipidemia, unspecified; E11.22 Type 2 diabetes mellitus with diabetic chronic kidney disease; I12.9 Hypertensive chronic kidney disease with stage 1 through stage 4 chronic kidney disease, or unspecified chronic kidney disease; N18.9 Chronic kidney disease, unspecified; Z87.891 Personal history of nicotine dependence; Z89.422 Acquired absence of other left toe(s); Y83.8 Other surgical procedures as the cause of abnormal reaction of the patient, or of later complication, without mention of misadventure at the time of the procedure; X58.XXXD Exposure to other specified factors, subsequent encounter ==

== ENCOUNTER → 2017-06-15 | Outpatient (CLI) | payer MEDICARE | END | disposition home or self-care (01) | LOC: WOUNDCARE 04:02 | DX: T81.89XD Other complications of procedures, not elsewhere classified, subsequent encounter (principal); S80.812D Abrasion, left lower leg, subsequent encounter; L02.612 Cutaneous abscess of left foot; E11.69 Type 2 diabetes mellitus with other specified complication; M86.272 Subacute osteomyelitis, left ankle and foot; I48.91 Unspecified atrial fibrillation; I25.10 Atherosclerotic heart disease of native coronary artery without angina pectoris; E78.5 Hyperlipidemia, unspecified; E11.22 Type 2 diabetes mellitus with diabetic chronic kidney disease; I12.9 Hypertensive chronic kidney disease with stage 1 through stage 4 chronic kidney disease, or unspecified chronic kidney disease; N18.9 Chronic kidney disease, unspecified; E11.36 Type 2 diabetes mellitus with diabetic cataract; Z89.422 Acquired absence of other left toe(s); Z87.891 Personal history of nicotine dependence; Y83.8 Other surgical procedures as the cause of abnormal reaction of the patient, or of later complication, without mention of misadventure at the time of the procedure; X58.XXXD Exposure to other specified factors, subsequent encounter ==

== ENCOUNTER → 2017-07-01 | Outpatient (CLI) | payer MEDICARE | END | disposition home or self-care (01) | LOC: WOUNDCARE 01:52 | DX: E11.621 Type 2 diabetes mellitus with foot ulcer (principal); L97.521 Non-pressure chronic ulcer of other part of left foot limited to breakdown of skin; I48.91 Unspecified atrial fibrillation; I25.10 Atherosclerotic heart disease of native coronary artery without angina pectoris; E78.5 Hyperlipidemia, unspecified; E11.22 Type 2 diabetes mellitus with diabetic chronic kidney disease; I12.9 Hypertensive chronic kidney disease with stage 1 through stage 4 chronic kidney disease, or unspecified chronic kidney disease; N18.9 Chronic kidney disease, unspecified; E11.69 Type 2 diabetes mellitus with other specified complication; M86.272 Subacute osteomyelitis, left ankle and foot; E11.36 Type 2 diabetes mellitus with diabetic cataract; Z87.891 Personal history of nicotine dependence; Z89.422 Acquired absence of other left toe(s) ==

== ENCOUNTER 2018-07-28 18:13 | Inpatient (IN) | payer MEDICARE ==
[~2018-07-28] VITALS: Ht 177.8 cm; Wt 95.8 kg
--- NOTE | ~2018-07-28 | CON ---
[place], [place] REPORT OF CONSULTATION [id number] UN[facility] #: [id number] ROOM: 524 DOCTOR: FATIMAH MUNOZ MD BIRTHDATE: [birth year] DOS: 07/30/2018 CARDIOLOGY CONSULTATION REASON FOR CONSULTATION: Syncope and left ventricular dysfunction. HISTORY OF PRESENT ILLNESS: The patient is a 73-year-old man who has a long history of atherosclerotic heart disease. He tells me that he did undergo bypass surgery at the [facility] in 2004. Shortly after that, he states that he had a stress test, which showed an ejection fraction per his report of 30%. He states that he has done reasonably well from a cardiac standpoint since then, but he has had a lot of problems with carotid and peripheral vascular disease. He is status post right carotid stenting and has had the angiography of his lower extremities. He did suffer a nonhealing ulceration on his left foot and did undergo a single toe amputation recently. About 6 weeks ago while at a [email or web address], he had a sudden loss of consciousness. He states that he had no warning and no recollection of the event. As best I can tell, he was not hospitalized at that point, but did see his instrument worker a few days later. He tells me that they had him wear a monitor for 2 weeks, but found no significant arrhythmias. He is not sure if they did an echocardiogram. The current admission was prompted after a second syncopal episode. The patient was taking out trash when he had a brief episode of dyspnea followed by loss of consciousness. There was no sensation of palpitation or chest pain, but he felt he could not catch his breath. Both episodes resulted in some bruising, but no serious injuries. On this admission, he was noted to have an acute worsening of his renal function. Since he has been in the hospital, he has been in sinus rhythm and has not had any demonstrably arrhythmias. An echocardiogram was done on 07/29/2018, which showed normal left ventricular size with severe global hypokinesis, estimated ejection fraction is 15%-20% with stage III diastolic relaxation abnormalities, the left atrium was mildly dilated, there was mild aortic stenosis, moderate mitral annular calcification with no mitral stenosis or significant mitral regurgitation and trace tricuspid insufficiency. PAST MEDICAL HISTORY: Includes; 1. Coronary artery disease. The patient had bypass surgery at the [facility] in 2004. 2. Ischemic cardiomyopathy. The patient reports that a stress test after his bypass showed an ejection fraction of 30%. Those records are pending. 3. Peripheral vascular disease. 4. Carotid vascular disease, status post stenting of the right carotid artery. 5. Chronic systolic heart failure. 6. Essential hypertension. 7. Hyperlipidemia. 8. Paroxysmal atrial fibrillation. The patient is on warfarin for stroke prophylaxis. 9. Type 2 diabetes mellitus, on insulin. [place], [place] REPORT OF CONSULTATION NAME: MICHAEL ADLER UNIT #: [id number] ROOM: 524 DOCTOR: FATIMAH MUNOZ MD BIRTHDATE: [birth year] 10. Status post cholecystectomy, appendectomy and right inguinal hernia repair. 11. Two recent syncopal episodes, one without warning and the other with a brief episode of dyspnea prior to loss of consciousness. FAMILY HISTORY: The patient's father in his late 70s from obstructive lung disease. His mother in her 80s from heart disease. REVIEW OF SYSTEMS: The patient denies diplopia or loss of vision. He denies focal weakness. He did have the syncopal episodes noted above. He denies nausea or vomiting. He denies fevers, chills, sweats or recent major weight change, but he states that his weight goes up and down by 2-3 pounds fairly routinely. He denies nausea or vomiting. He denies cough or hemoptysis. He denies hematemesis. He denies any focal weakness. He denies change in bowel or bladder habits and denies blood in his stools or urine. He does have cramping in his legs when he walks and his legs get fatigued easily. He denies any skin rashes. He does have a small ulceration on his left sr that is healing nicely without evidence for infection. He does have peripheral edema. The remainder of the review of systems is negative except as noted above. MEDICATIONS PRIOR TO ADMISSION: Aspirin 81 mg per day, carvedilol 25 mg b.i.d., digoxin 125 mcg daily, fenofibrate 160 mg at bedtime, furosemide 40 mg every other day, omeprazole 40 mg b.i.d., simvastatin 20 mg at bedtime, sodium bicarbonate 325 mg 2 tablets b.i.d., spironolactone 25 mg daily, valsartan 80 mg daily, warfarin 5 mg 5 days a week with 2.5 mg on Mondays and Fridays to maintain an INR between 2 and 3, glargine insulin 140 units subcutaneously daily and Humalog 15 units t.i.d. before meals. ALLERGIES: The patient lists allergies to DE[employer] MEAT and TUNA. SOCIAL HISTORY: The patient is a former heavy smoker, but quit smoking many years ago. He has not consumed any alcohol recently either. He is and lives with his . PHYSICAL EXAMINATION: GENERAL: The patient is a well-nourished white male who is awake, alert and oriented. VITAL SIGNS: Pulse is 68 and regular, blood pressure is 138/71. He is afebrile and weighs 95.9 kilograms with a body mass index of 30.3. HEENT: Normocephalic, atraumatic. Extraocular muscles are intact. Sclerae are clear. Pupils are equal, round and react to light. The oral mucosa is moist. Tongue is midline. NECK: Supple. He has no jugular distention. Carotids are full. There are no bruits. He has no neck or supraclavicular masses and no thyromegaly. LUNGS: Respirations are unlabored. His chest is clear to auscultation and percussion. He has no presacral edema or chest wall tenderness. CARDIOVASCULAR: His heart has a regular rhythm. He has a fourth heart sound, but no third heart sound or murmur. The PMI is not displaced. ABDOMEN: Obese, but otherwise benign, without masses, organomegaly or bruits. EXTREMITIES: Showed 2+ edema to the knees. He does have a small eschar on his left sr, but no erythema, tenderness or fluctuance. He is status post [place], [place] REPORT OF CONSULTATION NAME: MICHAEL ADLER UNIT #: [id number] ROOM: 524 DOCTOR: FATIMAH MUNOZ MD BIRTHDATE: [birth year] amputation of the third toe on his left foot and the lesion is healed well. He does have no palpable pedal pulses. PERTINENT LABORATORY DATA: Chest x-ray shows marked cardiomegaly. Hemoglobin is 10, hematocrit 32.6, there are 6100 white cells and 185,000 platelets. INR is 3.2. Sodium is 144, potassium is 4.0, chloride 113, CO2 of 22, BUN 47, creatinine 2.69. Troponin levels have been measurable, but not elevated with the highest troponin recorded at 0.038. Total cholesterol is 82, LDL 33, HDL 28, triglycerides 104. Digoxin level is 0.06. Echocardiogram done on 07/29/2018 showed normal left ventricular size with normal wall thickness, left ventricle was globally hypokinetic with an estimated ejection fraction between 15% and 20%. There was Doppler evidence for stage 3 diastolic relaxation abnormalities. The left atrium was mildly enlarged with mild mitral insufficiency. There was mild aortic stenosis present. IMPRESSION: 1. Two syncopal episodes without prodrome. 2. Ischemic cardiomyopathy with ejection fraction 15%-20%. 3. History of coronary artery disease. 4. History of carotid vascular disease. 5. History of peripheral vascular disease. 6. Diabetes mellitus with vasculopathy, neuropathy and nephropathy. 7. Chronic renal insufficiency with acute exacerbation. 8. Paroxysmal atrial fibrillation. PLAN: The patient's two syncopal episodes in the face of very poor left ventricular function are highly suggestive of an arrhythmic cause. I think that it is very likely that he will have more episodes and that he should be managed with placement of a defibrillator. As far as medical therapy for his left ventricular dysfunction is concerned, I think that his renal failure precludes the use of an angiotensin receptor braeden or JORDAN inhibitor. I would start him on hydralazine and isosorbide and titrate the doses up to tolerate levels to improve left ventricular function over time. For now, however, I think he should see an consultant rn in the very near future. He typically is followed by Dr. Blank at the [facility] in [place] and I would suggest contacting Dr. Blank or the physician control equipment electrician for him to see if they will take him in transfer to have the defibrillator placed as soon as possible. I thank Dr. Campa and the hospitalist physicians for asking our advice regarding the patient's care. [place], [place] REPORT OF CONSULTATION NAME: MICHAEL ADLER UNIT #: [id number] ROOM: 524 DOCTOR: FATIMAH MUNOZ MD BIRTHDATE: [birth year] FATIMAH MUNOZ MD CM:CONSTR:REPORT OF CONSULTATION 1413 07/31/18 0042 interface
--- NOTE | ~2018-07-28 | EKG ---
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
[2018-07-28 18:16] VITALS: BP 131/72
--- NOTE | 2018-07-28 18:35 | NUR ---
WOUNDS: NONE. HOWEVER, PT DOES HAVE A SMALL RED AREA LEFT CHEEK FROM HITTING GROUND WHEN HE FELL. ALSO, HEALING AREA OF GRANULATION LEFT GALDAMEZ FROM A BUMPING INJURY "A WEEK AGO" ALSO, HEALED LEFT 4TH TOE AMPUTATION SITE WITH CHRONIC CALLOUS "FOR YEARS". NONE OF THESE SITES REQUIRE TREATMENT AND WERE NOT PHOTOGRAPHED.
--- NOTE | 2018-07-28 18:38 | NUR ---
NPT UNABLE TO PROVIDE URINE SPECIMEN AT THIS TIME AND DECLINES A CATH SPECIMEN. HE REPORTS KIDNEY DISEASE AND LOW URINE PRODUCTION.
[2018-07-28 18:53] LABS: BASO # 0.1 10*3/uL (0.0-0.1); BASO % 0.7 % (0.0-1.0); EOS # 0.2 10*3/uL (0.0-0.4); HEMATOCRIT 34.3 % (42.0-52.0); HEMOGLOBIN 10.7 g/dl (14.0-18.0); LYMPH # 0.9 10*3/uL (1.3-4.4); LYMPH % 11.4 % (27.0-41.0); MEAN CELL VOLUME 92.5 fl (80.0-94.0); MEAN CORPUSCULAR HGB 28.8 pg (27.0-31.0); MEAN CORPUSCULAR HGB CONC 31.2 g/dl (33.0-37.0); MEAN PLATELET VOLUME 10.4 fl (9.6-12.3); MONO # 0.3 10*3/uL (0.1-1.0); MONO % 4.1 % (3.0-9.0); NEUT # 6.6 10*3/uL (2.3-7.9); NEUT % 81.4 % (47.0-73.0); PLATELET COUNT AUTOMATED 213 10*3/uL (130-400); RED BLOOD COUNT 3.71 10*6/uL (4.50-5.90); RED CELL DISTRI WIDTH 14.8 % (0-14.5); WHITE BLOOD COUNT 8.1 10*3/uL (4.8-10.8)
[2018-07-28 19:03] LABS: ACT PARTIAL THROMBO TIME 35.9 SECONDS (20.8-31.5); INTERNATIONAL NORM RATIO 3.2 (2.0-3.5)
[2018-07-28 19:08] LABS: ALKALINE PHOSPHATASE 35 U/L (45-117); BUN 50 mg/dl (7-24); CHLORIDE 109 mmol/L (98-107); CREATININE 2.89 mg/dL (0.70-1.30); LIPASE 304 U/L (73-393); POTASSIUM 4.5 mmol/L (3.5-5.1); SGOT/AST 19 IU/L (3-35); SGPT/ALT 20 U/L (12-78); SODIUM 138 mmol/L (136-145); TOTAL PROTEIN 6.6 gm/dL (6.4-8.2); TROPONIN I 0.018 ng/ml (<0.045)
[2018-07-28 19:20] LABS: DIGOXIN < 0.06 ng/ml (0.8-2.0)
[2018-07-28 19:34] VITALS: BP 120/66
--- NOTE | 2018-07-28 19:34 | NUR ---
REPORT RECEIVED FROM RAINE SALAS. PT VOICES NO C/O AT THIS TIME. MONITOR NSR 70'S. AT BEDSIDE.---LEONOR SARAH RN
[2018-07-28 20:05] LABS: BILIRUBIN NEGATIVE (NEGATIVE); BLOOD 2+ (NEGATIVE); CLARITY SL CLOUDY (CLEAR); COLOR YELLOW (YELLOW); GLUCOSE 1+ (NEGATIVE); KETONE NEGATIVE (NEGATIVE); LEUKO ESTERASE 1+ (NEGATIVE); NITRITE NEGATIVE (NEGATIVE); PH 5.5 (5.0-9.0); SPECIFIC GRAVITY 1.025 (1.005-1.030); UROBILINOGEN 0.2 E.U./dl (0.2-1.0)
[2018-07-28 20:15] LABS: BACTERIA TRACE; RBC 0-2 rbc/hpf (0-2); WBC 51-100 wbc/hpf (0-5)
[2018-07-28 20:23] VITALS: BP 132/74
[2018-07-28 21:00] VITALS: BP 142/79
--- NOTE | 2018-07-28 21:00 | NUR ---
Time: 2099 A 73 year old MALE admitted to 5E under services of SONA MCGRARY DO. Pt. arrived via bed from ER. Chief complaint: SYNCOPE, CHRONIC RENAL FAILURE. PATIENT ORIENTED TO THE FLOOR 5E, CALL LIGHT SYSTEM REVIEWED AND DEMONSTRATED. MARLENY LEAL
--- NOTE | 2018-07-28 21:27 | NUR ---
DR. ARMAS NOTIFIED THAT PATIENT IS ON THE FLOOR, MED REC IS UP TO DATE, PATIENTS CONDITION AND SYMPTOMS REVIEWED. NO NEW ORDERS GIVEN AT THIS TIME.
[2018-07-29] VITALS: BP 128/72
[2018-07-29 03:07] LABS: BASO % 0.7 % (0.0-1.0); EOS # 0.1 10*3/uL (0.0-0.4); EOS % 1.6 % (1.0-4.0); HEMATOCRIT 32.6 % (42.0-52.0); LYMPH # 1.1 10*3/uL (1.3-4.4); LYMPH % 18.2 % (27.0-41.0); MEAN CELL VOLUME 91.3 fl (80.0-94.0); MEAN CORPUSCULAR HGB CONC 30.7 g/dl (33.0-37.0); MEAN PLATELET VOLUME 10.2 fl (9.6-12.3); MONO # 0.3 10*3/uL (0.1-1.0); MONO % 4.7 % (3.0-9.0); NEUT # 4.6 10*3/uL (2.3-7.9); NEUT % 74.6 % (47.0-73.0); PLATELET COUNT AUTOMATED 185 10*3/uL (130-400); RED BLOOD COUNT 3.57 10*6/uL (4.50-5.90); RED CELL DISTRI WIDTH 14.7 % (0-14.5); WHITE BLOOD COUNT 6.1 10*3/uL (4.8-10.8)
[2018-07-29 03:24] LABS: ACT PARTIAL THROMBO TIME 36.7 SECONDS (20.8-31.5); INTERNATIONAL NORM RATIO 3.2 (2.0-3.5)
[2018-07-29 03:25] LABS: CREATININE 2.69 mg/dL (0.70-1.30); PHOSPHOROUS 3.2 mg/dL (2.5-4.9); TOTAL PROTEIN 5.9 gm/dL (6.4-8.2)
[2018-07-29 03:30] LABS: FREE T4 1.08 ng/dl (0.76-1.46); THYROID STIM HORMONE (HS) 1.51 uIU/ml (0.358-4.75)
--- NOTE | 2018-07-29 10:02 | NUR ---
Reviewing home insulin with pt. Pt states he takes 140 toujeo at home but adjusts the dose based on his blood sugar. States this am his blood sugar was 170's and at home he would not take the 140units for that result. States he would take [address] Carrero of pt statements and she states ok to give 50 units based on pt blood sugar.
--- NOTE | 2018-07-29 11:21 | NUR ---
PT WITH FAMILY AT BEDSIDE. AT 1000 MEDICATION PASS PT STATED HE GIVES HIMSELF A "SLIDING SCALE OF LONG ACTING MEDICATION" PER HIS DOCTOR. PT STATES IT IS WHAT EVER HE WANTS PER HIS MORNING BLOOD SUGAR. SOME DAYS HE DOES 50 UNITS AND OTHER DAYS HE DOES THE COMPLETE 140 UNITS. THIS NURSE PROVIDED EDUCATION TO PT ABOUT CHECKING HIS BLOOD SUGAR MORE FREQUENTLY AND THAT HIS A1C IS SHOWING AN UNCONTROLLED BLOOD SUGAR. FAMILY AT BEDSIDE AND SAYS THAT SOMETIMES HE DROPS DOWN TO 40, PT TO CONTINUE TO BE EDUCATED ON BLOOD SUGAR
--- NOTE | 2018-07-29 11:36 | NUR ---
PHYSICAL THERAPY PROGRESS NOTE: Pt was seen for evaluation while on 5th floor with moderate complexity determined based on evaluation, co-morbidities and current function. Pt would benefit from short term SNF stay following acute care discharge as he describes a progressive functional decline over the past few years. Pt lives with in single story home with 1 step to enter, he continues to drive but reports only in home ambulation with occasional limited community ambulation without device vs cane vs FWW depending on how he is functioning that day. Refer to evaluation for complete details and thank you for this referral. Zoya Mendez, PT
[2018-07-29 12:00] VITALS: BP 120/60
--- NOTE | 2018-07-29 13:32 | NUR ---
Pipe Foreman in to talk to patient. Patient states lives at HOME with . There are NO steps in the home. Physician: [facility] Pharmacy: [facility] Home health services: NONE Patient's level of ADLs: INDEPENDENT Patient has working utilities: YES DME: CANE WHEN OUT Follow-up physician's appointment after d/c: WILL BE MADE BY HOSPITALIST NURSE DIRECTOR ON DISCHARGE Does patient want to access PORTAL?: NO Discharge plan PT STATES HE PLANS TO GO HOME ON DISCHARGE, STATES HE LIVES WITH AND IS INDEPENDENT IN CARE. USES A CANE OCCASIONAL WHEN GOING OUT. DENIES ANY HOME NEEDS AT THIS TIME. WILL CONTINUE TO FOLLOW.. ADELSO RAMIREZ
[2018-07-29 16:00] VITALS: BP 136/72
[2018-07-29 20:00] VITALS: BP 134/71
[2018-07-30] VITALS: BP 135/67
[2018-07-30 07:55] VITALS: BP 126/64
--- NOTE | 2018-07-30 09:55 | NUR ---
PHYSICAL THERAPY PT SITTING UP IN BED FINISHING BREAKFAST UPON ARRIVAL. PT STATES "PLEASE JUST LEFT ME REST. I DON'T WANT TO DO THIS ON THE WEEKEND." PT EDUCATED ON THE IMPORTANCE OF THERAPY. PT STILL DID NOT WANT TO TAKE PART IN THERAPY. GAURANG TABARES PTA.
--- NOTE | 2018-07-30 10:45 | NUR ---
ANSWERING SERVICE WAS NOTIFIED OF DR. MUNOZ CONSULT. RESPONSE OF NOTIFICATION WAS INFORMATION GIVEN TO PERSON AT CALL CENTER. STATES HE WILL GIVE INFORMATION TO METAL STUD FRAMER PHYSICAN WHICH IS DR. MUNOZ. KIN BECKHAM
--- NOTE | 2018-07-30 10:56 | NUR ---
Dr. Vega called in. Details of consult given to him.
--- NOTE | 2018-07-30 11:15 | NUR ---
Request for records faxed by WC to [facility].
[2018-07-30 12:00] VITALS: BP 138/71
--- NOTE | 2018-07-30 14:20 | NUR ---
Spoke with pt daughter Ngoc and she was aware of orders for pt to be transfered to [place]. States she has spoke with her mother regarding this as well.
--- NOTE | 2018-07-30 14:47 | NUR ---
Nurse to Nurse report called to [facility] in [place]. I spoke with Puma who will be his nurse at [facility].
--- NOTE | 2018-07-30 15:15 | NUR ---
[facility] team here to take pt to [facility]. DC via ambulance.
--- NOTE | 2018-08-08 08:16 | NUR ---
PHYSICAL THERAPY CO-SIGN I approve of the Phyical Therapy notes written above. DARRICK ALCANTARA PT
== END 2018-07-30 13:35 | disposition short-term general hospital (02) | DRG 682 ==
LOC: ED 18:13 → EDHOLD 19:57 → 5E 19:57
PROVIDERS: Family Medicine; Nurse Practitioner Family; ADMIT Internal Medicine
DX: N17.0 Acute kidney failure with tubular necrosis (principal); E43 Unspecified severe protein-calorie malnutrition; N39.0 Urinary tract infection, site not specified; I50.22 Chronic systolic (congestive) heart failure; D68.59 Other primary thrombophilia; I13.0 Hypertensive heart and chronic kidney disease with heart failure and stage 1 through stage 4 chronic kidney disease, or unspecified chronic kidney disease; N18.3 Chronic kidney disease, stage 3 (moderate); K21.9 Gastro-esophageal reflux disease without esophagitis; I48.91 Unspecified atrial fibrillation; E78.00 Pure hypercholesterolemia, unspecified; I48.0 Paroxysmal atrial fibrillation; S00.83XA Contusion of other part of head, initial encounter; W18.39XA Other fall on same level, initial encounter; G57.90 Unspecified mononeuropathy of unspecified lower limb; E53.8 Deficiency of other specified B group vitamins; E11.22 Type 2 diabetes mellitus with diabetic chronic kidney disease; E11.40 Type 2 diabetes mellitus with diabetic neuropathy, unspecified; E11.65 Type 2 diabetes mellitus with hyperglycemia; I25.5 Ischemic cardiomyopathy; Z79.4 Long term (current) use of insulin; E11.51 Type 2 diabetes mellitus with diabetic peripheral angiopathy without gangrene; Z82.49 Family history of ischemic heart disease and other diseases of the circulatory system; Z88.9 Allergy status to unspecified drugs, medicaments and biological substances; Z90.49 Acquired absence of other specified parts of digestive tract; Z95.1 Presence of aortocoronary bypass graft; Z87.891 Personal history of nicotine dependence; Y93.89 Activity, other specified; Y92.89 Other specified places as the place of occurrence of the external cause; Y99.8 Other external cause status; I25.2 Old myocardial infarction; Z83.6 Family history of other diseases of the respiratory system; Z83.3 Family history of diabetes mellitus; Z80.8 Family history of malignant neoplasm of other organs or systems; Z68.30 Body mass index [BMI] 30.0-30.9, adult; E83.41 Hypermagnesemia; E83.51 Hypocalcemia

== ENCOUNTER 2018-08-11 13:04 | Inpatient (IN) | payer MEDICARE ==
[~2018-08-11] VITALS: Ht 172.7 cm; Wt 97.3 kg
[2018-08-11] VITALS (9 sets, daily range): BP systolic 126–162; BP diastolic 65–79
--- NOTE | ~2018-08-11 | PR ---
[place], [place] PROGRESS NOTE [id number] UNIT #: [id number] ROOM: 405 DOCTOR: SANTY AWAN MD,REBEKAH BIRTHDATE: [birth year] DOS: 08/15/2018 PULMONARY PROGRESS NOTE SUBJECTIVE: The patient was noted comfortable at this time without any acute distress, still reporting symptoms of coughing with intermittent sputum expectoration. Denies symptoms of fever or chills. Shortness breath has been resolving. Denies symptoms of edema or pain of the lower extremities. OBJECTIVE: VITAL SIGNS: Normal temperature, respiratory rate of 22, heart rate 75, blood pressure 160/76. The pulse oxygen saturation at rest on 3 liters nasal cannula 98% saturation. HEENT: Examination shows head was atraumatic. Eyes nonicterus. NECK: Supple. CARDIOVASCULAR SYSTEM: S1, S2 is audible. LUNGS: The patient was noted with decreased breath sounds in the lungs bilaterally. Crackles were still noted in the lung bases. There was no wheezing. ABDOMEN: Soft, nontender. Bowel sounds present. EXTREMITIES: Without any acute edema. IMPRESSION: The patient with: 1. Resolving acute respiratory failure, exacerbation of chronic obstructive pulmonary disease, bilateral lower lobe pneumonia as well. 2. History of congestive heart failure with systolic dysfunction. PLAN OF MANAGEMENT: Continue antibiotics, bronchodilators, monitor culture results. Decrease Solu-Medrol dose to 40 mg daily dosing as well. Continue other therapy and plan of management. Continue anticoagulation as well. REBEKAH MADERA MD CM:PNTRANS [id number] REBEKAH AWAN MD 08/16/18 0231 interface
--- NOTE | ~2018-08-11 | PR ---
[place], [place] PROGRESS NOTE NAME: MICHAEL ADLER UNIT #: [id number] ROOM: 405 DOCTOR: SANTY AWAN MD,REBEKAH BIRTHDATE: [birth year] DOS: 08/20/2018 SUBJECTIVE: He has bronchoscopy done yesterday. The patient with significant improvement in the respiratory symptom was noted with almost complete resolution of the cough. Shortness of breath has been improving. There were no wheezing reported. There were no symptoms of chest pain as stated by the patient. Denies pain or edema of the lower extremities. OBJECTIVE: VITAL SIGNS: Normal temperature, respiratory rate 20, heart rate 73, blood pressure 108/70. Pulse oxygen saturation on room air 94% saturation. HEENT: Head was atraumatic. Eyes nonicterus. NECK: Supple. CARDIOVASCULAR: S1, S2 audible. LUNGS: Improvement in the crackles noted in the lower portion of the lungs bilaterally. There was no wheezing. ABDOMEN: Soft, nontender. EXTREMITIES: No new change. LABORATORY DATA: The Gram stain of the bronchial washing with many white blood cells, moderate epithelial cells, few gram-negative diplococci, few budding yeast. Culture today, preliminary normal aileen. The INR was 1.7. IMPRESSION: The patient with resolving acute pneumonia with significant reduction and improvement in the respiratory symptoms noted post-bronchoscopy. PLAN OF THERAPY: Discharge planning per primary care physician on oral antibiotic as well or Group Home Facility per plan for this patient after discussion with the patient and family members. Outpatient followup would be established post-discharge in the office. REBEKAH MADERA MD CM:PNTRANS [id number] REBEKAH AWAN MD 08/29/18 1012 interface
--- NOTE | ~2018-08-11 | PR ---
[place], [place] PROGRESS NOTE NAME: MICHAEL ADLER [facility] #: [id number] UNIT #: [id number] ROOM: 405 DOCTOR: SANTY AWAN MD,REBEKAH BIRTHDATE: [birth year] DOS: 08/14/2018 PULMONARY PROGRESS NOTE SUBJECTIVE: The patient appears to be comfortable at this time, has been transferred from Intensive Care Unit to telemetry floor. The patient stated expectoration moderate amount of thick purulent secretion yesterday, still noted with a moderate to large amount of sputum most likely in the chest, he could not expectorate. The patient had been using the flutter valve. Denies symptoms of fever or chills. Denies symptoms of hemoptysis. Denies symptoms of headache or diplopia. Denies symptoms of nausea or vomiting. Shortness of breath has been improving. There were no symptoms of wheezing reported by the patient. Remaining systems were reviewed and was noted all negative. OBJECTIVE: VITAL SIGNS: Normal temperature, respiratory rate 20, heart rate of 77, blood pressure 144/71-150/64. Pulse oxygen saturation was recorded as 94% saturation on 3 liters nasal cannula. HEENT: Examination shows head was atraumatic. Eyes nonicterus. NECK: Supple. CARDIOVASCULAR: S1, S2 is audible. LUNGS: The patient was noted with basilar area of crackles still noted. There was no wheezing. ABDOMEN: Soft, nontender. Bowel sounds are present. EXTREMITIES: The patient without any acute edema. MUSCULOSKELETAL: Without acute deformities. CENTRAL NERVOUS SYSTEM: The patient's cranial nerves 2-12 intact. LABORATORY DATA: PT/INR noted 2.7, which is therapeutic today. BMP this morning, BUN 67, creatinine 2.84. Glucose 328. CBC this morning: WBC count normal, hemoglobin 10.3, hematocrit 32.3. Culture of the sputum noted normal aileen. IMPRESSION: 1. Acute bilateral pneumonia with retained secretion of the airway, which has been gradually expectorated by the patient. 2. The patient with chronic anticoagulation noted therapeutic. 3. Congestive heart failure with systolic dysfunction. 4. Resolving acute kidney injury gradually, multifactorial. PLAN OF MANAGEMENT: Monitor kidney functions. Continue the flutter valve and current plan of management with the antibiotics. The antibiotic changes to be made by the Infectious Disease specialist who is already monitoring this patient. Follow the recommendation of the antibiotic changes. Usual care, other therapy, plan of management, and care plan. [place], [place] PROGRESS NOTE NAME: VITORMICHAEL Humphrey UNIT #: [id number] ROOM: 405 DOCTOR: SANTY AWAN MD,REBEKAH BIRTHDATE: [birth year] REBEKAH MADERA MD CM:JOAQUÍN [id number] REBEKAH AWAN MD 08/14/181954 interface
--- NOTE | ~2018-08-11 | PROC NOTE ---
[place], [place] PROCEDURE NOTE NAME: MICHAEL ADLER UNIT #: [id number] ROOM: 405 DOCTOR: SANTY AWAN MD,REBEKAH BIRTHDATE: [birth year] DOS: 08/19/2018 BRONCHOSCOPY NOTE PREOPERATIVE DIAGNOSES: The patient with evidence of bilateral lower lobe pneumonia, persistent nonresolving cough, maximal medical management therapy. Currently, noted only small amount of sputum expectoration, excessive cough has noted, nonresolving. POSTOPERATIVE DIAGNOSES: Removal of thick mucus plug from bronchial tree bilaterally, predominantly in lower lungs, greater in the left lower lobe than the right lower lobe. PROCEDURE DESCRIPTION: Informed consent obtained for the patient. The patient was brought to the OR and placed in supine position. Conscious sedation administered by the Anesthesia Department. After achieving proper sedation, airway introduced into the mouth. Bronchoscope advanced to the airway into laryngeal area. Epiglottis and vocal cord seen. Vocal cords moving symmetrically with movements. Bronchoscope entered vocal cord and tracheal lumen. Tracheal lumen was identified and noted with very thick mucus secretions, which were brownish in color as well, suctioned out at alicia level. Right upper, right middle, right lower, left upper, lingula, lower bronchi all examined. The patient noted mucus plug predominantly in the lower lungs, greater in the left lower than the right lower lobe. Small impacted mucus was also present in the remaining bronchial opening, cleared of normal saline wash, sent for cultures. Procedure was well tolerated by the patient without difficulty. Postoperative findings were discussed with the patient's family members in the recovery room. No immediate change in treatment at this time will be necessary. Anticoagulation will be resumed as previously ordered with all other previous treatment as ordered as well. REBEKAH MADERA MD CM:PROCNOTE:PROCEDURE NOTE [id number] REBEKAH AWAN MD
--- NOTE | ~2018-08-11 | PR ---
[place], [place] PROGRESS NOTE NAME: MICHAEL ADLER [facility] #: [id number] UNIT #: [id number] ROOM: 405 DOCTOR: SANTY AWAN MD,REBEKAH BIRTHDATE: [birth year] DOS: 08/13/2018 PULMONARY FOLLOWUP NOTE SUBJECTIVE: The patient was noted comfortable at this time, resting, stated cough with some sputum expectoration. Denies symptoms of chest pain. There was no hemoptysis. He stated reduction of the respiratory symptoms from yesterday, but the resolution noted incomplete. He denies any pain of the lower extremity. Denies any symptoms of itching. Denies symptoms of headache or diplopia. Remaining systems were reviewed and they were noted all negative. OBJECTIVE: VITAL SIGNS: For the patient remains afebrile in the last 24 hours, respiratory rate ranging between 18-29, heart rate of 76-71, blood pressure 144/71-113/55. Pulse oxygen saturation of 4 liters 97% saturation. HEENT: Examination shows head was atraumatic. Eyes nonicterus. NECK: Supple. CARDIOVASCULAR: S1, S2 is audible. LUNGS: Still noted with basilar crackles, greater on the left than the right side. ABDOMEN: Soft, nontender. Bowel sounds present. EXTREMITIES: With mild edema. VISIBLE SKIN: No lesions or rashes. MUSCULOSKELETAL: Noted without any acute deformities. CENTRAL NERVOUS SYSTEM: The patient is intact. LABORATORY DATA: PT/INR therapeutic 2.8 this morning. CBC this morning, WBC count 4.6, hemoglobin 10.2, platelet count normal. CMP this morning, BUN 58, creatinine 2.0, glucose 243. A chest x-ray done this morning was noted with persistent small infiltration, retrocardiac area, left lower lobe. VQ scan was completed yesterday noted findings of low probability of pulmonary embolism. Localization of ventilation images were noted in the left side. IMPRESSION: 1. The patient with acute pneumonia, which has been noted and documented. CT scan of the chest and seen on the chest x-ray. 2. The patient with finding of centrilobular emphysema was also noted in the CT scan of the chest that was reviewed as well. 3. The patient with a cardiac dysrhythmia with a recent AICD insertion as well. 4. Acute respiratory failure. The patient was noted stable. 5. Severe cardiomyopathy with peripheral edema with superimposed acute congestive heart failure as well. Suspected the culture of the sputum preliminary noted as normal aileen from yesterday, Gram stain, many white blood cells, moderate epithelial cells, moderate gram-negative bacilli, moderate gram-positive cocci in pairs, chains and clusters. 6. Acute exacerbation of chronic obstructive pulmonary disease. [place], [place] PROGRESS NOTE NAME: MICHAEL ADLER UNIT #: [id number] ROOM: 405 DOCTOR: SANTY AWAN MD,REBEKAH BIRTHDATE: [birth year] PLAN OF TREATMENT: Continuation of the antibiotics. Monitor all the cultures of de-escalation of antibiotics based on culture results. Titrate oxygen supplementation, maintain pulse ox saturation 92% or greater. Continuation of other therapy. Continue anticoagulation. The patient to keep maintain PT/INR therapeutic, which are noted today in the therapeutic range as well. For the acute exacerbation of chronic obstructive pulmonary disease, the patient receiving corticosteroids. The dose will be gradually decreased based on further improvement in the symptoms. Usual care. Monitor kidney function closely as well with additional treatment changes will be ordered based on the progression of his illness. REBEKAH MADERA MD CM:PNTRANS [id number] REBEKAH AWAN MD 08/14/18 0726 interface
--- NOTE | ~2018-08-11 | PR ---
[place], [place] PROGRESS NOTE NAME: MICHAEL ADLER [facility] #: [id number] UNIT #: [id number] ROOM: 405 DOCTOR: SANTY AWNA MD,REBEKAH BIRTHDATE: [birth year] DOS: 08/17/2018 SUBJECTIVE: The patient was noted comfortable at this time without any acute distress, resting on the bed. He has not been noted any symptoms of chest pain. Coughing has been still present with gradual reduction for this patient, but still noted intermittent sputum expectoration, which are noted thick and brown. There were no symptoms of hemoptysis. OBJECTIVE: VITAL SIGNS: For the patient which were recorded showed the temperature was noted as normal. The respiratory rate of the patient recorded as 20, heart rate of 73, blood pressure 150/80-146/73. The pulse oxygen saturation of the patient recorded as 97% saturation on 1 liter nasal cannula. HEENT: Examination shows head was atraumatic. Eyes nonicterus. NECK: Supple. CARDIOVASCULAR: S1, S2 is audible. LUNGS: The patient was noted with crackles still noted in the lower portion of the lungs bilaterally. ABDOMEN: Soft, nontender. Bowel sounds are present. EXTREMITIES: Without any acute edema. MUSCULOSKELETAL: Without acute deformities. ADDENDUM EXTREMITIES: Noted without any acute deformities. There was no edema, clubbing, cyanosis noted. CENTRAL NERVOUS SYSTEM: Noted intact. No focal deficit. SKIN: No lesions or rashes. LABORATORY DATA: Reviewed for this patient shows the chest x-ray that was done this morning shows resolving pulmonary infiltration in the lungs noted bilaterally as compared with previous chest x-ray: Small infiltrates still noted in the right lower lobe; however, the infiltrates size has decreased. The left side appeared to be completely resolved. The PT/INR was 1.8, which is subtherapeutic. CBC this morning, normal WBC count, hemoglobin 9.9. Platelet count was normal. The BMP of patient this morning, BUN 92, creatinine 2.73. IMPRESSION: 1. Resolving acute pneumonia. The patient gradually progressive with current medical management. 2. Chronic anticoagulation as well. 3. The patient with severe cardiomyopathy. The patient had a recent AICD insertion. PLAN OF MANAGEMENT: No changes in the plan of care. At this time, the patient is responding to treatment very well. Discharge planning could be started on oral antibiotic transition. Bronchodilator therapy, plan of management to be continued previously in progress. Maximize the Coumadin dose to maintain a therapeutic INR. [place], [place] PROGRESS NOTE NAME: MICHAEL ADLER UNIT #: [id number] ROOM: [facility] DOCTOR: REBEKAH SON MD BIRTHDATE: [birth year] REBEKAH MADERA MD CM:PNTRANS [id number] REBEKAH AWAN MD 08/17/18 2136 interface
--- NOTE | ~2018-08-11 | PR ---
[place], [place] PROGRESS NOTE NAME: MICHAEL ADLER [facility] #: [id number] UNIT #: [id number] ROOM: 405 DOCTOR: TANIKA BOND CNP BIRTHDATE: [birth year] DOS: 08/14/2018 SUBJECTIVE: He is being followed for pneumonia, currently on linezolid, was changed from vancomycin due to rise in creatinine as well as Levaquin and Zosyn. Creatinine is somewhat improved today, down to 2.84 from 3. He was originally 2.3 on admission. He is alert, oriented, breathing has improved. Continues with productive cough with white sputum. No nausea or vomiting. No diarrhea. He had some weakness with ambulation yesterday. He remains on O2 via nasal cannula, which is not his baseline. No fevers or chills. He does have some lower extremity edema. Further review of systems is unremarkable. LABORATORY DATA: WBC is 5.6, platelets 176. BUN 67, creatinine 2.84. His sputum culture is only growing oral aileen. His MRSA screen was negative. Blood cultures remain sterile. Influenza was negative. PHYSICAL EXAMINATION: VITAL SIGNS: Temperature 97.4, pulse 77, respirations 20, BP 144/71. GENERAL: A 73-year-old male, in no acute distress. HEAD, EYES, EARS, NOSE AND THROAT: Normocephalic. No thrush. LUNGS: Diminished bilaterally with rales and rhonchi. Respirations even and unlabored, on O2 via nasal cannula. HEART: Regular rhythm. No murmur appreciated. ABDOMEN: Soft, nontender, obese. EXTREMITIES: +1 to 2 edema to bilateral lower extremities. SKIN: Warm, dry, free of rashes. ASSESSMENT: Bronchopneumonia. PLAN: We will stop the linezolid. His MRSA screen is negative. Sputum culture only has oral aileen. Continue the Zosyn and Levaquin for now. Per the patient, Pulmonary has discussed with him a possible bronchoscopy. Follow the creatinine. ADDENDUM: This is an addendum to the progress note done by the nurse practitioner, aTnika Bond. I reviewed the labs and imaging and made the necessary changes in the note. TANIKA BOND CNP [place], [place] PROGRESS NOTE NAME: VITORMICHAEL Humphrey UNIT #: [id number] ROOM: 405 DOCTOR: RONDA CASTANEDA,OCTOBER BIRTHDATE: [birth year] Dinah MD Ivory CM:JOAQUÍN [id number] OCTOBER RONDA CASTANEDA 08/18/18 1055 interface
--- NOTE | ~2018-08-11 | CON ---
[place], [place] REPORT OF CONSULTATION NAME: MICHAEL ADLER [facility] #: [id number] UNIT #: [id number] ROOM: 405 DOCTOR: SANTY AWAN MD,REBEKAH BIRTHDATE: [birth year] DOS: 08/12/2018 PULMONARY CONSULTATION, EVALUATION AND MANAGEMENT CONSULTATION REQUESTED BY: Hospitalist services. REASON FOR CONSULTATION: For assessment of current abnormal respiratory symptoms for the patient. HISTORY OF PRESENT ILLNESS: A 73-year-old white male patient with a very complicated history with advanced severe cardiomyopathy. The patient has been noted with ischemic cardiomyopathy, left ventricular ejection fraction of 15-20%, recently admitted in [facility] for couple of days, from 07/28/2018-07/30/2018. The patient had been noted with cardiac arrhythmia and transferred to [facility] to his primary cardiology services. The patient has been noted with a requirement for the AICD. The AICD was inserted successfully at [facility]. The patient has been doing well after discharge. He reported symptoms of having increased shortness of breath for the last couple of days, which has been noted gradually worsen. The symptoms of cough was also noted with a small amount of sputum expectoration. Denies symptoms of chest pain with that. The patient does complain of symptoms of edema of the lower extremities with that as well. The patient stated significant symptoms of orthopnea and stated that he could not lay down on the bed and was sleeping and sitting on the chair most of the time in the last couple of days as well. REVIEW OF SYSTEMS: CONSTITUTIONAL SYMPTOMS: Fatigue and tiredness noted. Denies any symptoms of fever or chills. EYES: Denies any burning, redness, or tenderness. EARS, NOSE, AND SORE THROAT SYMPTOMS: Denies sore throat, hoarseness, otalgia, postnasal drainage or epistaxis. CARDIOVASCULAR SYSTEM: Denies anginal pain. Noted with intermittent edema of the lower extremity. There were no symptoms of palpitation reported. GASTROINTESTINAL SYSTEM: The patient noted with multiple times of nauseated feeling, but there was no vomiting. Denies symptoms of abdominal pain, hematemesis, melena, or hematochezia. GENITOURINARY SYMPTOMS: Denies dysuria, suprapubic pain, hematuria or urinary incontinence. CENTRAL NERVOUS SYSTEM: Denies dizziness, headache, diplopia, syncopal episodes at this time, but noted recent syncopal episode due to cardiac etiology. Remaining systems were reviewed. They were noted all negative. PAST MEDICAL HISTORY: 1. Advanced cardiomyopathy, left ventricular ejection fraction about 15-20%. 2. Cardiac arrhythmia, syncope, AICD insertion recently. 3. Chronic kidney disease, stage 3. 4. Essential hypertension. 5. Gastroesophageal reflux disease. [place], [place] REPORT OF CONSULTATION [facility] [id number] UNIT #: [id number] ROOM: 405 DOCTOR: REBEKAH SON MD BIRTHDATE: [birth year] 6. Hypercoagulable status. 7. Hypercholesterolemia. 8. Peripheral neuropathy. 9. Permanent atrial fibrillation as well. 10. Vitamin D deficiency. 11. Coronary artery disease. PAST SURGICAL HISTORY: 1. AICD insertion. 2. Right carotid endarterectomy and stent placement. 3. Appendectomy. 4. Coronary artery bypass grafting. 5. Cholecystectomy. 6. Inguinal hernia repair. SOCIAL HISTORY: The patient stated that he is , has 1 child, lives at home. He has been noted with tobacco use at younger age. The patient smoked 2 packs of cigarettes per day, which were discontinued approximately 30 years ago. Denies any history of alcohol use or any illicit drugs. He has worked at different areas in the [employer] and other similar jobs. The patient has some exposure to the dust as well. FAMILY HISTORY: This patient's father at the age of 70 (complication of COPD). Mother at the age of 8080 years old from heart disease as well. HOME MEDICATIONS: Listed Coumadin, Humalog insulin, sodium bicarbonate, Lasix, aspirin, Lantus insulin, Coreg, Aldactone, simvastatin, fenofibrate, digoxin, and omeprazole as well as losartan. The medications, which has been currently administered for this patient on this hospitalization were noted as active use of medication are digoxin, Aldactone, aspirin, fenofibrate, simvastatin, sodium bicarbonate, Lasix, IV Solu-Medrol, Mucinex, IV Zosyn, Levaquin and vancomycin. DRUG ALLERGY HISTORY: THE PATIENT NOTED WITH ALLERGY TO THE IVP DYE. PHYSICAL EXAMINATION: GENERAL: This is a 73-year-old white male, currently sitting on the chair this morning of assessment, using oxygen supplementation nasal cannula. VITAL SIGNS: Height of 5 feet 8 inches, weight of 223 pounds, BMI 33.9. Vital signs, which were recorded shows temperature noted at 101.6 degree Fahrenheit to 99.5 degree Fahrenheit, respiratory rate ranged between 38-22. The heart rate 77-84 with a paced rhythm, blood pressure 148/72-139/64. Intake was recorded at about 700 mL. The pulse oxygen saturation was recorded as 96% saturated 4-1/2 liters nasal cannula, room air on admission was 84% saturation of oxygen. HEENT: Moderate obesity. Head was atraumatic. Eyes: No icterus. NECK: Supple. CARDIOVASCULAR: S1, S2 is audible. LUNGS: The patient was noted with decreased breath sounds in the lower portion of the left lung. Crackles noted in the right lower lung. Scattered wheezing. [place], [place] REPORT OF CONSULTATION NAME: MICHAEL ADLER UNIT #: [id number] ROOM: 405 DOCTOR: SANTY AWAN MD,REBEKAH BIRTHDATE: [birth year] ABDOMEN: Soft and obese. Nontender. EXTREMITIES: Noted with edema. MUSCULOSKELETAL: Without any acute deformities. CENTRAL NERVOUS SYSTEM: The patient's cranial nerves 2-12 intact. SKIN: No gross focal deficit. LABS DONE: The PT/INR was noted on 08/11/2018 as 1.5. Influenza A and B, nasal washing antigens were negative. The arterial blood gas that was done yesterday; pH of 7.39, pCO2 of 37, pO2 of 116. CMP that was done on 08/11/2018; BUN 42, creatinine 2.37, glucose 158. The potassium was normal. AST 39. The BMP that was done this morning; BUN 41, creatinine 2.40, glucose 148. Potassium remains normal. CBC of this morning; WBC count remains normal, hemoglobin 10.2, hematocrit 33.2, platelet count were normal. Arterial blood gas this morning for half liter nasal cannula; pH of 7.39, pCO2 of 35, pO2 70.9. Digoxin level was normal 0.91 today. The ESR was noted 41. Culture of the sputum was pending. The Gram stain today; many white blood cells, moderate epithelial cells, moderate gram-negative bacilli, moderate gram-positive cocci in pairs, chains and clusters. The PT/INR today was noted 1.9, which is close to therapeutic range with PTT of 32. The chest x-ray 1 view, which was done shows AICD in place in the left chest. Right lung was noted clear. There were no pleural fluid. Retrocardiac infiltration in the left lower lobe cannot be completely excluded. IMPRESSION: The patient has been currently admitted to the hospital with: 1. Acute hypoxic respiratory failure as a result of acute pneumonia very likely left lower lobe. 2. Acute exacerbation of chronic obstructive pulmonary disease as well. The pneumonia organism would be considered as a gram-positive, gram-negative infection because of recent hospitalization in the last 10-14 days. 3. The patient with chronic obesity as well. 4. The patient with chronic kidney disease. 5. Chronic anticoagulation, subtherapeutic INR. 6. Cardiac dysrhythmia, recent inpatient admission to the hospital with the AICD insertion with syncopal episodes as well. 7. The patient with severe ischemic cardiomyopathy with acute congestive heart failure with the symptom resultant as orthopnea was noted past few days. PLAN OF MANAGEMENT: The patient would be continuing current broad-spectrum intravenous antibiotic. Monitor culture results of the blood in the sputum. Continue oxygen supplementation to maintain pulse oxygen saturation 90%. Use of BiPAP in case of further worsening of the respiratory status will be done. Maximize the management of the congestive heart failure as well. Other additional treatment changes will be made based on the progression of the illness. Supportive care therapy, plan of management and care plan and treatments. Thank you for allowing me to participate in the care of this patient. [place], [place] REPORT OF CONSULTATION NAME: MICHAEL ADLER [facility] #: [id number] UNIT #: [id number] ROOM: 405 DOCTOR: REBEKAH SON MD BIRTHDATE: [birth year] REBEKAH MADERA MD CM:CONSTR:REPORT OF CONSULTATION 1413 08/29/18 1010 interface
--- NOTE | ~2018-08-11 | PR ---
[place], [place] PROGRESS NOTE [id number] UNIT #: [id number] ROOM: 405 DOCTOR: RONDA CASTANEDAOCTOBER BIRTHDATE: [birth year] DOS: 08/13/2018 HISTORY OF PRESENT ILLNESS: The patient is a 73-year-old male. He was recently admitted here a few weeks ago with cardiac arrhythmia issues. He was transferred to [facility] on 07/30 for AICD placement, which he underwent last week who was discharged home. In the last few days, he developed a cough, shortness of breath. He was admitted to [facility] on the 08/10. His temp max was up to 101.8. He was having chills at home. He has frequent cough, significant shortness of breath at the time of admission. He states his breathing has improved by half, but it has not returned to baseline. His cough is nonproductive. Fevers have resolved. He is on Levaquin, Zosyn and vancomycin to cover nosocomial aileen due to his recent hospitalization. WBCs on admission were 6.5. ID is consulted for pneumonia, which will be a healthcare-associated pneumonia. Urinary antigens are pending. Respiratory viral panel pending. Blood cultures remained sterile, sputum culture, Gram stain has Gram-positive cocci and Gram-negative bacilli, many wbc's. Culture is pending. ____. REVIEW OF SYSTEMS: As above, otherwise unremarkable. No peripheral edema. PHYSICAL EXAMINATION: VITAL SIGNS: Temperature 98.6, pulse 76, respirations 18, BP 113/55. GENERAL: A 73-year-old male, in no acute distress. HEENT: Normocephalic, no thrush. Edentulous. LUNGS: With crackles bilateral bases, left greater than right. Respirations even and unlabored. HEART: Regular rhythm. No murmur appreciated. ABDOMEN: Soft, nontender, nondistended. EXTREMITIES: No edema or deformity. SKIN: Warm, dry, free of rashes. LABORATORY DATA: CT of the chest films and report reviewed. Cultures as reviewed above. WBCs 4.6, platelets 167. BUN 58, creatinine 3.0. ASSESSMENT: Bronchopneumonia. PLAN: Continue vancomycin, Zosyn and Levaquin. Follow up on cultures and urinary antigens as well as the respiratory viral panel. The patient's creatinine is rising. It has gone from 2.37 on admission up to 3. We will stop the IV vancomycin. Check urine for eosinophils. Start linezolid. Pending his culture results. ADDENDUM I agree with the assessment and plan done by the nurse practitioner, Tanika Bond. I reviewed the labs and imaging and made the necessary changes in the note. [place], [place] PROGRESS NOTE NAME: MICHAEL ADLER UNIT #: [id number] ROOM: 405 DOCTOR: RONDA CASTANEDAOCTOBER BIRTHDATE: [birth year] TANIKA BOND CNP Dinahswapnil Dodson MD CM:PNTRANS [id number] TANIKA BOND CNP 08/18/18 1049 interface
--- NOTE | ~2018-08-11 | PR ---
[place], [place] PROGRESS NOTE NAME: MICHAEL ADLER UNIT #: [id number] ROOM: 405 DOCTOR: TAMMY PEARLFATIMAH BIRTHDATE: [birth year] DOS: 08/19/2018 CARDIOLOGY PROGRESS NOTE SUBJECTIVE: The patient was seen at his bedside today for followup of his ischemic cardiomyopathy and recently placed ICD. He presented to the hospital on this occasion with sepsis and pneumonia. He is recovering well, but still is breathless and therefore did undergo bronchoscopy this morning. He states that he is breathing better since then. PHYSICAL EXAMINATION: VITAL SIGNS: Today, his pulse is 79 and regular, blood pressure is 157/74. He is afebrile. He weighs 98.2 kg and has a body mass index of 32.9. HEENT: Normocephalic, atraumatic. Extraocular muscles are intact. Sclerae are clear. Pupils are round and react to light. The oral mucosa is moist. Tongue is midline. NECK: Supple. He has no jugular distention. Carotids are full. LUNGS: Respirations are unlabored. He has decreased breath sounds at the bases. HEART: Has a regular rhythm with an S4 gallop, but no S3 or murmur. The PMI is not displaced. His pacer site is healing nicely. There is no erythema, drainage or fluctuance. ABDOMEN: Benign. EXTREMITIES: Showed no edema. IMPRESSION: 1. Ischemic cardiomyopathy. 2. Recurrent syncope, most likely due to cardiac arrhythmias. The patient did undergo ICD placement at the [facility] in late July 2018. 3. Healthcare-associated pneumonia. 4. Ischemic cardiomyopathy with chronic systolic heart failure. 5. Chronic renal insufficiency. PLAN: The patient is responding nicely to antibiotic therapy and shows no positive blood cultures or evidence for infection of his pacer site. We will continue to follow him intermittently, but he does seem stable from a cardiac standpoint. We will continue to follow him on guideline directed medical therapy. This has been modified by the fact that he is in renal insufficiency and therefore we are using hydralazine and isosorbide instead of an angiotensin receptor braeden combination. I thank the hospitalist physicians for asking our advice regarding his care. [place], [place] PROGRESS NOTE NAME: MICHAEL ADLER UNIT #: [id number] ROOM: 405 DOCTOR: FATIMAH MUNOZ MD BIRTHDATE: [birth year] FATIMAH MUNOZ MD CM:PNTRANS 1334 FATIMAH MUNOZ MD 08/20/18 0316 interface
--- NOTE | ~2018-08-11 | PR ---
[place], [place] PROGRESS NOTE NAME: MICHAEL ADLER [facility] #: [id number] UNIT #: [id number] ROOM: 405 DOCTOR: FATIMAH MUNOZ MD BIRTHDATE: [birth year] DOS: 08/14/2018 CARDIOLOGY PROGRESS NOTE SUBJECTIVE: The patient was seen at his bedside today 08/14/2018 for followup of his ischemic cardiomyopathy. He is a 73-year-old man who has a long history of atherosclerotic heart disease with decreased left ventricular systolic function. Recently, he had 2 syncopal episodes without warning. They were sudden and he did injure himself mildly on each occasion. Given his poor LV function, I felt that it was very likely that these were arrhythmic events. He typically is followed by the computer system technician at the [facility] [place] and therefore after his last event, he was transferred from [facility] to [place] where he did undergo placement of an ICD. His ejection fraction by echocardiogram on 07/29/2018 was between 15% and 20% and he had stage 3 diastolic relaxation abnormalities. An ICD was placed around 08/01/2018. After his discharge, he felt well for a time, but began to have increased shortness of breath. He took increased Lasix, but did not feel much better. He came into the hospital where he was felt to have pneumonia. He was treated with antibiotics and is improving. He does not appear to be in acute heart failure at this time. Blood cultures have been negative and his pacer site appears to be clean and dry without any fluctuance or erythema. PHYSICAL EXAMINATION: VITAL SIGNS: His pulse is 77 and regular, blood pressure is 144/71. He is afebrile. NECK: Supple. He has no jugular distention. Carotids are full. LUNGS: Respirations are unlabored at rest. He does have crackles at the bases with bilateral scattered wheezes. He has no presacral edema. HEART: Has a regular rhythm with an S4 gallop. There was no S3 or obvious murmur. ABDOMEN: Soft. EXTREMITIES: Showed 1+ edema bilaterally. LABORATORY DATA: White count today is 5600, hemoglobin 10.3, platelet count 176,000. Sodium 140, potassium 4.3, BUN 67, creatinine 2.84. IMPRESSION: 1. Respiratory failure due to pneumonia -- improving. 2. Healthcare-associated pneumonia. 3. Ischemic cardiomyopathy with chronic systolic heart failure. 4. History of syncopal episode consistent with arrhythmic events. The patient received an implantable cardioverter-defibrillator at the [facility] in [place] in late July 2018. 5. Acute on chronic systolic heart failure, currently compensated. 6. Chronic renal insufficiency. PLAN: We will continue to follow him intermittently. Once he is discharged, he will likely continue to follow up with his primary computer system technician, Dr. Blank, at [place], [place] PROGRESS NOTE NAME: MICHAEL ADLER [facility] #: [id number] UNIT #: [id number] ROOM: 405 DOCTOR: FATIMAH MUNOZ MD BIRTHDATE: [birth year] the [facility] in [place]. We will remain available to see him as needed at that point. I thank the hospitalist physicians for asking our advice regarding his care. FATIMAH MUNOZ MD CM:PNTRANS [id number] FATIMAH MUNOZ MD 08/15/18 0635 interface
--- NOTE | ~2018-08-11 | PR ---
[place], [place] PROGRESS NOTE NAME: MICHAEL ADLER UNIT #: [id number] ROOM: 405 DOCTOR: SANTY AWAN MD,REBEKAH BIRTHDATE: [birth year] DOS: 08/18/2018 PULMONARY PROGRESS NOTE SUBJECTIVE: The patient continues with sputum expectoration noted with excessive coughing intermittently with a small amount of brownish sputum expectoration. Denies symptoms of chest pain. Denies symptoms of fever or chills. Denies symptoms of nausea, vomiting, diarrhea, or headache. Shortness of breath occurs with exertion, but not present at rest. Denies any pain or edema of the lower extremity, which was significant. Remaining systems were reviewed, they were noted all negative. OBJECTIVE: VITAL SIGNS: For the patient which was recorded shows the normal temperature, respiratory rate 20, heart rate 77, blood pressure 151/68. Pulse oxygen saturation recorded as 96% saturation on room air. HEENT: Examination shows head was atraumatic. Eyes nonicterus. NECK: Supple. CARDIOVASCULAR: S1, S2 audible. LUNGS: Decreased breath sounds, scattered crackles in the lungs are still noted bilaterally. ABDOMEN: Soft, nontender. EXTREMITIES: Mild edema. VISIBLE SKIN: No lesions or rashes. CENTRAL NERVOUS SYSTEM: Nonfocal. LABORATORY DATA: BMP today: BUN of 90, creatinine 2.68, glucose 171. The PT/INR of the patient today was noted 1.7 subtherapeutic. Respiratory virus panel, which was done on 08/12/2018 was noted positive for RSV A type. CBC of this morning, WBC count normal, hemoglobin 9.8, hematocrit 31.3, and platelet count normal. IMPRESSION: 1. Persistent respiratory symptoms, nonresolving cough with pulmonary infiltration acute pneumonia noted as well. 2. In general, the patient has been showing improvement in respiratory symptoms, but the cough remains bothersome and nonresolving. PLAN OF MANAGEMENT: Bronchoscopy was assessed, planned to be done tomorrow morning to help clear secretion and bronchial treatment, antibiotic spectrum. Patient was seen by the Infectious Disease specialist. Continuation of bronchodilator therapy, plan of management, care plan as previously. Usual care and other therapies. [place], [place] PROGRESS NOTE NAME: MICHAEL ADLER UNIT #: [id number] ROOM: 405 DOCTOR: REBEKAH SON MD BIRTHDATE: [birth year] REBEKAH MADERA MD CM:PNTRANS [id number] REBEKAH AWAN MD 08/29/18 1012 interface
--- NOTE | ~2018-08-11 | PR ---
[place], [place] PROGRESS NOTE NAME: MICHAEL ADLER [facility] #: [id number] UNIT #: [id number] ROOM: 405 DOCTOR: FATIMAH MUNOZ MD BIRTHDATE: [birth year] DOS: 08/13/2018 CARDIOLOGY PROGRESS NOTE SUBJECTIVE: The patient was seen today 08/13/2018 in the Intensive Care Unit with his at the bedside. He states that he has had some rough time since he has been here, but currently feels pretty well. He states that he is still not able to take a full deep breath, but he is able to get more air in that he did previously. He still has a minimally productive cough and denies any fevers, chills or sweats. The CAT scan of his chest today showed a normal-sized heart without pericardial effusion. The coronary arteries do show calcifications. There is no pleural effusion. There are mild lingular opacities and lower lobe opacities consistent with pneumonia. PHYSICAL EXAMINATION: VITAL SIGNS: His pulse is 76 and regular, blood pressure is 113/55. He is afebrile. NECK: Supple. He has minimal jugular distention with hepatojugular reflux when sitting in a 45-degree angle. Carotids are full. LUNGS: Respirations are unlabored. Chest has decreased breath sounds with crackles and wheezes bilaterally, especially at the bases. He has no presacral edema. HEART: Has a regular rhythm with an S4 gallop. I did not hear an S3 or murmur. ABDOMEN: Benign. EXTREMITIES: Showed no edema. LABORATORY DATA: White count today is 4600, hemoglobin 10.2. Sodium is 139; potassium 4.2; chloride 108; CO2 of 23; BUN 58, creatinine 3.0, this is up from BUN of 41 and creatinine of 2.4 24 hours ago. T4 is 1.09. TSH 0.838. Troponins have been negative. IMPRESSION: 1. Respiratory failure due to pneumonia. 2. Healthcare-associated pneumonia. 3. Ischemic cardiomyopathy with chronic systolic heart failure. 4. History of syncopal episodes consistent with arrhythmic events. The patient recently did receive an ICD. 5. Acute on chronic systolic heart failure. 6. Chronic renal insufficiency. PLAN: The patient is being treated aggressively for respiratory failure by his primary physicians and communications analyst. Cultures are yet pending. Thus far, he does not have any positive blood cultures and his pacer site looks good, but we will still monitor those issues carefully. I agree that we will have to slow down on his diuresis because of his renal insufficiency, but this will be a decision that this has to be made on a daily basis. We will continue to follow renal functions closely. I thank the hospitalist physicians for asking our advice regarding his care. [place], [place] PROGRESS NOTE NAME: MICHAEL ADLER UNIT #: [id number] ROOM: 405 DOCTOR: FATIMAH MUNOZ MD BIRTHDATE: [birth year] FATIMAH MUNOZ MD CM:PNTRANS [id number] FATIMAH MUNOZ MD 08/14/18 0851 interface
--- NOTE | ~2018-08-11 | EKG ---
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 : 1945 Requested By: POOJA HERNÁNDEZ Order Number: [id number] Reading MD: Easton Lopez MD Measurements Intervals [place] Rate: 82 P: 108 LA: 247 QRS: 59 QRSD: 108 T: 133 QT: 350 QTc: 409 Interpretive Statements Sinus rhythm Prolonged LA interval Probable left atrial enlargement Borderline low voltage, extremity leads Abnormal R-wave progression, late transition Nonspecific T abnormalities, lateral leads Compared to ECG 07/28/2018 18:19:58 No significant change Electronically Signed On 08-11-2018 18:06:36 PST by Easton Lopez MD CM:EKGRPT:ELECTROCARDIOGRAM REPORT [id number] POOJA HOOK DRAFT REPORT POOJA HERNÁNDEZ DO
--- NOTE | ~2018-08-11 | PR ---
[place], [place] PROGRESS NOTE NAME: MICHAEL ADLER [facility] #: [id number] UNIT #: [id number] ROOM: 405 DOCTOR: SANTY AWAN MD,REBEKAH BIRTHDATE: [birth year] DOS: 08/19/2018 PULMONARY PROGRESS NOTE SUBJECTIVE: The patient continued to have same symptoms. The patient with cough with small amount of brownish sputum expectoration intermittently. Coughing remains persistent without any changes. He denies shortness breath at rest. He denies symptoms of chest pain. Wheezing was noted occasionally. He denies any pain of the lower extremity or edema. He denies symptoms, nausea, vomiting, or hematuria. Remaining systems were reviewed and they were noted all negative. The patient is n.p.o. past midnight for bronchoscopy planned for today. OBJECTIVE: VITAL SIGNS: Normal temperature, respiratory rate of 20, heart rate of 78, blood pressure of 160/59. Pulse oxygen saturation was recorded as 93% saturation on room air. HEENT: Examination shows head was atraumatic. Eyes nonicterus. NECK: Supple. CARDIOVASCULAR SYSTEM: S1, S2 is audible. LUNGS: With basilar crackles. No wheezing. ABDOMEN: Soft, nontender. Bowel sounds present. EXTREMITIES: No acute change. VISIBLE SKIN: No lesions or rashes. MUSCULOSKELETAL: Without any acute deformities. CENTRAL NERVOUS SYSTEM: Grossly intact. LABORATORY DATA: BMP today in the lab, BUN of 73, creatinine of 2.47, and glucose of 139. Remaining electrolytes were normal. CBC of this morning: WBC count is normal, hemoglobin is 10.5, and platelet count is normal. PT and INR was noted as 1.8, which is subtherapeutic. IMPRESSION: 1. The patient with acute pneumonia with nonresolving cough. 2. The patient with acute exacerbation of the respiratory symptom related to current acute pneumonia and nonresolving cough. 3. Chronic anticoagulation. 4. Acute exacerbation of chronic obstructive pulmonary disease as well. PLAN OF THERAPY: Proceed with the fiberoptic bronchoscopy, no change in treatment in general will be needed. Monitor respiratory status closely. Bronchodilators continue to be administered. Anticoagulation will be resumed today after uneventful bronchoscopy. Other additional treatment changes will be made based on progression of illness. Assessment and management discussed with the family members of the patient at the bedside. [place], [place] PROGRESS NOTE NAME: MICHAEL ADLER UNIT #: [id number] ROOM: 405 DOCTOR: SANTY AWAN MD,REBEKAH BIRTHDATE: [birth year] REBEKAH MADERA MD CM:PNFIOR [id number] REBEKAH AWAN MD 08/20/18 0408 interface
--- NOTE | ~2018-08-11 | PR ---
[place], [place] PROGRESS NOTE NAME: MICHAEL ADLER UNIT #: [id number] ROOM: 405 DOCTOR: SANTY AWAN MD,REBEKAH BIRTHDATE: [birth year] DOS: 08/16/2018 PULMONARY PROGRESS NOTE SUBJECTIVE: The patient has expectorate sputum, which still noted to be thick and purulent. Respiratory gunn, he has been continued to show reduction in symptoms of coughing, shortness of breath and wheezing. There were no symptoms of chest pain, hemoptysis reported by the patient. OBJECTIVE: VITAL SIGNS: Normal temperature, respiratory rate 22, pulse 72, blood pressure 136/66. The pulse oxygen saturation 2 liters nasal cannula 100% saturation. HEENT: Head was atraumatic. Eyes nonicterus. NECK: Supple. CARDIOVASCULAR: S1, S2 is audible. LUNGS: The patient was noted without any wheeze or crackles at the present time. ABDOMEN: Soft, nontender. Bowel sounds present. EXTREMITIES: The patient was noted without any acute edema. IMPRESSION: The patient who has been currently noted with gradual progressive acute exacerbation of chronic obstructive pulmonary disease, acute pneumonia, clinically as well. PLAN OF MANAGEMENT: Discontinuation of the dosing. Continue the Levaquin is the primary antibiotic based on culture results. Chest x-ray of patient repeated in the morning to reassess the progression of the pneumonia, radiologically as well. Based on that, discharge planning will be done, discharge in the next 48 hours. The patient is very likely. Other therapy, plan of management, care plan of treatment and management. REBEKAH MADERA MD CM:PNTRANS [id number] REBEKAH AWAN MD 08/29/18 1010 interface
--- NOTE | ~2018-08-11 | PR ---
[place], [place] PROGRESS NOTE [id number] #: [id number] ROOM: 405 DOCTOR: SANTY AWAN MD,REBEKAH BIRTHDATE: [birth year] DOS: 08/21/2018 PULMONARY PROGRESS NOTE SUBJECTIVE: The patient noted comfortable at this time, resting on the bed. The coughing continued to resolve progressively and noted minimal at the present time. Shortness of breath is improving. There was no wheezing or chest pain reported by the patient. OBJECTIVE: VITAL SIGNS: The vital signs of the patient, which has been recorded showed the temperature recorded as normal, respiratory rate is 20, heart rate is 80, and blood pressure is 118/50. HEENT: Examination shows head was atraumatic. Eyes nonicterus. NECK: Supple. CARDIOVASCULAR SYSTEM: S1, S2 is audible. LUNGS: Without any wheeze or crackles. ABDOMEN: Soft, nontender. Bowel sounds present. EXTREMITIES: No acute change. IMPRESSION: The patient with progressive resolution of acute pneumonia, respiratory symptom. Bronchoscopy was done couple of days ago without any bacterial isolation noted at present time. PLAN OF TREATMENT: No change in pulmonary standpoint. Discharge planning per primary care attending. Continue other therapy, plan of management, care plan, other treatment and therapies. Usual care. REBEKAH MADERA MD CM:PNTRANS [id number] REBEKAH AWAN MD 08/22/18 0416 interface
[2018-08-11 13:56] LABS: BASO % 0.6 % (0.0-1.0); EOS # 0.1 10*3/uL (0.0-0.4); EOS % 1.2 % (1.0-4.0); HEMATOCRIT 34.3 % (42.0-52.0); HEMOGLOBIN 10.5 g/dl (14.0-18.0); LYMPH # 0.5 10*3/uL (1.3-4.4); LYMPH % 8.1 % (27.0-41.0); MEAN CELL VOLUME 89.6 fl (80.0-94.0); MEAN CORPUSCULAR HGB 27.4 pg (27.0-31.0); MEAN CORPUSCULAR HGB CONC 30.6 g/dl (33.0-37.0); MEAN PLATELET VOLUME 9.7 fl (9.6-12.3); MONO # 0.3 10*3/uL (0.1-1.0); MONO % 4.8 % (3.0-9.0); NEUT # 5.5 10*3/uL (2.3-7.9); PLATELET COUNT AUTOMATED 174 10*3/uL (130-400); RED BLOOD COUNT 3.83 10*6/uL (4.50-5.90); RED CELL DISTRI WIDTH 14.5 % (0-14.5); WHITE BLOOD COUNT 6.5 10*3/uL (4.8-10.8)
[2018-08-11 14:18] LABS: ALBUMIN 3.2 gm/dl (3.1-4.5); CREATININE 2.37 mg/dL (0.70-1.30); POTASSIUM 4.1 mmol/L (3.5-5.1); TOTAL PROTEIN 6.6 gm/dL (6.4-8.2)
[2018-08-11 14:19] LABS: TROPONIN I 0.021 ng/ml (<0.045)
[2018-08-11 14:35] LABS: INTERNATIONAL NORM RATIO 1.5 (2.0-3.5)
[2018-08-11 19:20] LABS: ABG BASE EXCESS -1.5 mmol/L (-2.0-2.0); ABG HCO3 21.9 mmol/l (22-26); ABG O2 SATURATION 98.1 % (95-97); ARTERIAL BLOOD GAS PCO2 37.5 mmHg (35-45); ARTERIAL BLOOD GAS PH 7.394 (7.35-7.45)
[2018-08-11 20:58] LABS: BILIRUBIN NEGATIVE (NEGATIVE); BLOOD 2+ (NEGATIVE); CLARITY CLEAR (CLEAR); COLOR YELLOW (YELLOW); GLUCOSE NEGATIVE (NEGATIVE); KETONE NEGATIVE (NEGATIVE); LEUKO ESTERASE NEGATIVE (NEGATIVE); NITRITE NEGATIVE (NEGATIVE); PH 5.5 (5.0-9.0); SPECIFIC GRAVITY 1.025 (1.005-1.030); UROBILINOGEN 0.2 E.U./dl (0.2-1.0)
[2018-08-11 21:11] LABS: MUCOUS TRACE
[2018-08-12] VITALS: BP 129/59
[2018-08-12 04:00] VITALS: BP 139/64
[2018-08-12 05:14] LABS: HEMATOCRIT 33.6 % (42.0-52.0); HEMOGLOBIN 10.2 g/dl (14.0-18.0); MEAN CELL VOLUME 91.1 fl (80.0-94.0); MEAN CORPUSCULAR HGB 27.6 pg (27.0-31.0); MEAN CORPUSCULAR HGB CONC 30.4 g/dl (33.0-37.0); MEAN PLATELET VOLUME 10.3 fl (9.6-12.3); PLATELET COUNT AUTOMATED 167 10*3/uL (130-400); RED BLOOD COUNT 3.69 10*6/uL (4.50-5.90); RED CELL DISTRI WIDTH 14.6 % (0-14.5); WHITE BLOOD COUNT 5.5 10*3/uL (4.8-10.8)
[2018-08-12 05:29] LABS: ACT PARTIAL THROMBO TIME 32.7 SECONDS (20.8-31.5); INTERNATIONAL NORM RATIO 1.9 (2.0-3.5)
[2018-08-12 05:43] LABS: CREATININE 2.4 mg/dL (0.70-1.30); FREE T4 1.09 ng/dl (0.76-1.46); PHOSPHOROUS 3.7 mg/dL (2.5-4.9); POTASSIUM 4.1 mmol/L (3.5-5.1)
[2018-08-12 05:49] LABS: TOTAL CELLS COUNTED 100 #CELLS
[2018-08-12 05:50] LABS: THYROID STIM HORMONE (HS) 0.838 uIU/ml (0.358-4.75)
[2018-08-12 05:50] LABS: PLATELET SUFFICIENCY NORMAL (NORMAL)
[2018-08-12 07:11] LABS: VITAMIN D, 25-HYDROXY 19.2 ng/mL (30-100)
[2018-08-12 07:45] LABS: ABG BASE EXCESS -2.5 mmol/L (-2.0-2.0); ABG HCO3 21.3 mmol/l (22-26); ABG O2 SATURATION 94.2 % (95-97); ARTERIAL BLOOD GAS PCO2 35.4 mmHg (35-45); ARTERIAL BLOOD GAS PH 7.397 (7.35-7.45); ARTERIAL BLOOD GAS PO2 70.9 mmHg (80-90)
[2018-08-12 08:00] VITALS: BP 144/70
[2018-08-12 12:00] VITALS: BP 132/64
[2018-08-12 16:00] VITALS: BP 128/61
[2018-08-12 20:00] VITALS: BP 112/49
[2018-08-13] VITALS: BP 131/64
[2018-08-13 04:00] VITALS: BP 124/62
[2018-08-13 07:00] LABS: ALBUMIN 2.6 gm/dl (3.1-4.5); PHOSPHOROUS 4.4 mg/dL (2.5-4.9); POTASSIUM 4.2 mmol/L (3.5-5.1)
[2018-08-13 07:08] LABS: BASO % 0.2 % (0.0-1.0); HEMATOCRIT 33.1 % (42.0-52.0); HEMOGLOBIN 10.2 g/dl (14.0-18.0); INTERNATIONAL NORM RATIO 2.8 (2.0-3.5); LYMPH # 0.4 10*3/uL (1.3-4.4); LYMPH % 9.2 % (27.0-41.0); MEAN CELL VOLUME 90.2 fl (80.0-94.0); MEAN CORPUSCULAR HGB 27.8 pg (27.0-31.0); MEAN CORPUSCULAR HGB CONC 30.8 g/dl (33.0-37.0); MEAN PLATELET VOLUME 10.1 fl (9.6-12.3); MONO # 0.1 10*3/uL (0.1-1.0); MONO % 2.4 % (3.0-9.0); PLATELET COUNT AUTOMATED 167 10*3/uL (130-400); RED BLOOD COUNT 3.67 10*6/uL (4.50-5.90); RED CELL DISTRI WIDTH 14.4 % (0-14.5); WHITE BLOOD COUNT 4.6 10*3/uL (4.8-10.8)
[2018-08-13 08:00] VITALS: BP 144/71
[2018-08-13 12:00] VITALS: BP 113/55
[2018-08-13 16:00] VITALS: BP 154/76
[2018-08-13 20:00] VITALS: BP 149/76
[2018-08-14] VITALS: BP 160/75
[2018-08-14 06:18] LABS: HEMATOCRIT 32.4 % (42.0-52.0); HEMOGLOBIN 10.3 g/dl (14.0-18.0); LYMPH # 0.6 10*3/uL (1.3-4.4); LYMPH % 10.5 % (27.0-41.0); MEAN CELL VOLUME 88.8 fl (80.0-94.0); MEAN CORPUSCULAR HGB 28.2 pg (27.0-31.0); MEAN CORPUSCULAR HGB CONC 31.8 g/dl (33.0-37.0); MEAN PLATELET VOLUME 10.6 fl (9.6-12.3); MONO # 0.2 10*3/uL (0.1-1.0); NEUT # 4.9 10*3/uL (2.3-7.9); NEUT % 86.1 % (47.0-73.0); PLATELET COUNT AUTOMATED 176 10*3/uL (130-400); RED BLOOD COUNT 3.65 10*6/uL (4.50-5.90); RED CELL DISTRI WIDTH 14.4 % (0-14.5); WHITE BLOOD COUNT 5.6 10*3/uL (4.8-10.8)
[2018-08-14 06:47] LABS: CREATININE 2.84 mg/dL (0.70-1.30); INTERNATIONAL NORM RATIO 2.7 (2.0-3.5); POTASSIUM 4.3 mmol/L (3.5-5.1)
[2018-08-14 08:00] VITALS: BP 150/64
[2018-08-14 12:00] VITALS: BP 144/71
[2018-08-14 16:00] VITALS: BP 146/73
[2018-08-14 20:00] VITALS: BP 138/62
[2018-08-15] VITALS: BP 155/69
[2018-08-15 06:40] LABS: HEMATOCRIT 32.6 % (42.0-52.0); HEMOGLOBIN 10.1 g/dl (14.0-18.0); MEAN CELL VOLUME 88.1 fl (80.0-94.0); MEAN CORPUSCULAR HGB 27.3 pg (27.0-31.0); MEAN PLATELET VOLUME 10.6 fl (9.6-12.3); PLATELET COUNT AUTOMATED 174 10*3/uL (130-400); RED CELL DISTRI WIDTH 14.3 % (0-14.5); WHITE BLOOD COUNT 6.4 10*3/uL (4.8-10.8)
[2018-08-15 06:41] LABS: CREATININE 2.47 mg/dL (0.70-1.30); POTASSIUM 4.5 mmol/L (3.5-5.1)
[2018-08-15 07:15] LABS: INTERNATIONAL NORM RATIO 2.5 (2.0-3.5)
[2018-08-15 07:50] VITALS: BP 168/76
[2018-08-15 07:58] LABS: PLATELET SUFFICIENCY NORMAL (NORMAL); TOTAL CELLS COUNTED 100 #CELLS
[2018-08-15 11:30] VITALS: BP 166/82
[2018-08-15 16:00] VITALS: BP 152/78
[2018-08-15 20:00] VITALS: BP 140/63
[2018-08-16] VITALS: BP 153/79
[2018-08-16 06:40] LABS: ALBUMIN 2.6 gm/dl (3.1-4.5); CREATININE 2.57 mg/dL (0.70-1.30); PHOSPHOROUS 3.1 mg/dL (2.5-4.9); POTASSIUM 4.1 mmol/L (3.5-5.1); TOTAL PROTEIN 5.7 gm/dL (6.4-8.2)
[2018-08-16 06:43] LABS: HEMATOCRIT 31.1 % (42.0-52.0); HEMOGLOBIN 10.1 g/dl (14.0-18.0); MEAN CELL VOLUME 87.1 fl (80.0-94.0); MEAN CORPUSCULAR HGB 28.3 pg (27.0-31.0); MEAN CORPUSCULAR HGB CONC 32.5 g/dl (33.0-37.0); MEAN PLATELET VOLUME 10.4 fl (9.6-12.3); PLATELET COUNT AUTOMATED 186 10*3/uL (130-400); RED BLOOD COUNT 3.57 10*6/uL (4.50-5.90); RED CELL DISTRI WIDTH 14.3 % (0-14.5); WHITE BLOOD COUNT 7.8 10*3/uL (4.8-10.8)
[2018-08-16 07:05] LABS: INTERNATIONAL NORM RATIO 2.1 (2.0-3.5)
[2018-08-16 07:15] LABS: ACANTHOCYTES FEW; PLATELET SUFFICIENCY NORMAL (NORMAL); TOTAL CELLS COUNTED 100 #CELLS
[2018-08-16 07:30] VITALS: BP 136/66
[2018-08-16 08:11] LABS: ADENOVIRUS Negative (Negative); INFLUENZA A Negative (Negative); INFLUENZA B Negative (Negative); METAPNEUMOVIRUS Negative (Negative); PARAINFLUENZA 1 Negative (Negative); PARAINFLUENZA 2 Negative (Negative); PARAINFLUENZA 3 Negative (Negative); RHINOVIRUS Negative (Negative); RSV A Positive (Negative); RSV B Negative (Negative)
[2018-08-16 12:00] VITALS: BP 154/76
[2018-08-16 16:00] VITALS: BP 125/65
[2018-08-16 20:00] VITALS: BP 138/82
[2018-08-17] VITALS: BP 147/58
[2018-08-17 04:00] VITALS: BP 146/73
[2018-08-17 06:26] LABS: HEMATOCRIT 32.1 % (42.0-52.0); HEMOGLOBIN 9.9 g/dl (14.0-18.0); MEAN CELL VOLUME 87.5 fl (80.0-94.0); MEAN CORPUSCULAR HGB CONC 30.8 g/dl (33.0-37.0); MEAN PLATELET VOLUME 10.9 fl (9.6-12.3); PLATELET COUNT AUTOMATED 184 10*3/uL (130-400); RED BLOOD COUNT 3.67 10*6/uL (4.50-5.90); RED CELL DISTRI WIDTH 14.6 % (0-14.5); WHITE BLOOD COUNT 7.4 10*3/uL (4.8-10.8)
[2018-08-17 07:03] LABS: POTASSIUM 4.1 mmol/L (3.5-5.1)
[2018-08-17 07:04] LABS: CREATININE 2.73 mg/dL (0.70-1.30)
[2018-08-17 07:23] LABS: PLATELET SUFFICIENCY NORMAL (NORMAL); POLYCHROMASIA SLIGHT; TOTAL CELLS COUNTED 100 #CELLS
[2018-08-17 07:24] LABS: ACANTHOCYTES FEW
[2018-08-17 07:35] LABS: INTERNATIONAL NORM RATIO 1.8 (2.0-3.5)
[2018-08-17 08:00] VITALS: BP 150/62
[2018-08-17 12:00] VITALS: BP 154/72
[2018-08-17 16:00] VITALS: BP 126/58
[2018-08-17 20:00] VITALS: BP 140/63
[2018-08-18] VITALS: BP 143/59
[2018-08-18 07:03] LABS: BASO % 0.1 % (0.0-1.0); EOS # 0.2 10*3/uL (0.0-0.4); EOS % 2.2 % (1.0-4.0); HEMATOCRIT 31.3 % (42.0-52.0); HEMOGLOBIN 9.8 g/dl (14.0-18.0); LYMPH # 1.6 10*3/uL (1.3-4.4); LYMPH % 17.8 % (27.0-41.0); MEAN CELL VOLUME 86.9 fl (80.0-94.0); MEAN CORPUSCULAR HGB 27.2 pg (27.0-31.0); MEAN CORPUSCULAR HGB CONC 31.3 g/dl (33.0-37.0); MEAN PLATELET VOLUME 9.5 fl (9.6-12.3); MONO # 0.5 10*3/uL (0.1-1.0); MONO % 5.3 % (3.0-9.0); NEUT # 6.6 10*3/uL (2.3-7.9); NEUT % 72.8 % (47.0-73.0); PLATELET COUNT AUTOMATED 197 10*3/uL (130-400); RED CELL DISTRI WIDTH 14.6 % (0-14.5)
[2018-08-18 07:11] LABS: INTERNATIONAL NORM RATIO 1.7 (2.0-3.5)
[2018-08-18 07:21] LABS: CREATININE 2.68 mg/dL (0.70-1.30); POTASSIUM 4.1 mmol/L (3.5-5.1)
[2018-08-18 07:27] VITALS: BP 138/80
[2018-08-18 08:00] VITALS: BP 148/67
[2018-08-18 12:00] VITALS: BP 151/68
[2018-08-18 16:00] VITALS: BP 144/56
[2018-08-18 20:00] VITALS: BP 136/62
[2018-08-19] VITALS (8 sets, daily range): BP systolic 106–161; BP diastolic 59–81
[2018-08-19 06:14] LABS: BASO % 0.1 % (0.0-1.0); EOS # 0.1 10*3/uL (0.0-0.4); EOS % 0.7 % (1.0-4.0); HEMATOCRIT 32.6 % (42.0-52.0); HEMOGLOBIN 10.5 g/dl (14.0-18.0); LYMPH # 1.3 10*3/uL (1.3-4.4); LYMPH % 13.6 % (27.0-41.0); MEAN CELL VOLUME 86.5 fl (80.0-94.0); MEAN CORPUSCULAR HGB 27.9 pg (27.0-31.0); MEAN CORPUSCULAR HGB CONC 32.2 g/dl (33.0-37.0); MEAN PLATELET VOLUME 10.5 fl (9.6-12.3); MONO # 0.6 10*3/uL (0.1-1.0); MONO % 6.1 % (3.0-9.0); NEUT # 7.6 10*3/uL (2.3-7.9); NEUT % 78.3 % (47.0-73.0); PLATELET COUNT AUTOMATED 222 10*3/uL (130-400); RED BLOOD COUNT 3.77 10*6/uL (4.50-5.90); RED CELL DISTRI WIDTH 14.8 % (0-14.5); WHITE BLOOD COUNT 9.7 10*3/uL (4.8-10.8)
[2018-08-19 06:40] LABS: ALBUMIN 2.5 gm/dl (3.1-4.5); CREATININE 2.47 mg/dL (0.70-1.30); PHOSPHOROUS 3.6 mg/dL (2.5-4.9); POTASSIUM 4.1 mmol/L (3.5-5.1); TOTAL PROTEIN 5.8 gm/dL (6.4-8.2)
[2018-08-19 06:58] LABS: INTERNATIONAL NORM RATIO 1.8 (2.0-3.5)
[2018-08-20 04:00] VITALS: BP 152/71
[2018-08-20 06:29] LABS: BASO % 0.1 % (0.0-1.0); EOS % 0.3 % (1.0-4.0); HEMATOCRIT 32.1 % (42.0-52.0); HEMOGLOBIN 10.4 g/dl (14.0-18.0); LYMPH # 1.1 10*3/uL (1.3-4.4); LYMPH % 11.7 % (27.0-41.0); MEAN CELL VOLUME 87.2 fl (80.0-94.0); MEAN CORPUSCULAR HGB 28.3 pg (27.0-31.0); MEAN CORPUSCULAR HGB CONC 32.4 g/dl (33.0-37.0); MEAN PLATELET VOLUME 10.9 fl (9.6-12.3); MONO # 0.6 10*3/uL (0.1-1.0); NEUT # 7.7 10*3/uL (2.3-7.9); NEUT % 80.3 % (47.0-73.0); PLATELET COUNT AUTOMATED 228 10*3/uL (130-400); RED BLOOD COUNT 3.68 10*6/uL (4.50-5.90); RED CELL DISTRI WIDTH 14.6 % (0-14.5); WHITE BLOOD COUNT 9.6 10*3/uL (4.8-10.8)
[2018-08-20 06:46] LABS: CREATININE 2.29 mg/dL (0.70-1.30); POTASSIUM 4.2 mmol/L (3.5-5.1)
[2018-08-20 06:51] LABS: INTERNATIONAL NORM RATIO 1.7 (2.0-3.5)
[2018-08-20 08:00] VITALS: BP 142/70
[2018-08-20 12:00] VITALS: BP 152/76
[2018-08-20 15:10] LABS: ACID FAST SPEC PROCESSING Concentration (.)
[2018-08-20 16:00] VITALS: BP 148/67
[2018-08-20 20:00] VITALS: BP 160/76
[2018-08-21] VITALS: BP 154/68
[2018-08-21 08:00] VITALS: BP 134/53
[2018-08-21 12:00] VITALS: BP 118/50
[2018-08-21] MEDS ORDERED: PREDNISONE10 MG PO (15:04)
[2018-08-21] MEDS ORDERED: Isordil20 MG PO (15:04)
[2018-08-21] MEDS ORDERED: HYDRALAZINE HYD50 MG PO (15:04)
[2018-08-21] MEDS ORDERED: VITAMIN D32000 UNI1 PO (15:04)
[2018-09-28 08:11] LABS: ORGANISM ID, MOLD Final report (.); RESULT 1 Mucor species (.)
[2018-09-29 13:07] LABS: ACID FAST CULTURE Negative (.)
== END 2018-08-21 16:23 | disposition home or self-care (01) | DRG 871 ==
LOC: ED 13:04 → 4E 17:52 → ICCU 17:52 → EDHOLD 17:52 → ICCU 18:17 → 4E 08-13 21:05
PROVIDERS: Family Medicine; Internal Medicine; Internal Medicine Critical Care Medicine; Internal Medicine Nephrology; ADMIT Internal Medicine
DX: A41.9 Sepsis, unspecified organism (principal); J96.01 Acute respiratory failure with hypoxia; I50.23 Acute on chronic systolic (congestive) heart failure; I26.99 Other pulmonary embolism without acute cor pulmonale; J69.0 Pneumonitis due to inhalation of food and vomit; N17.9 Acute kidney failure, unspecified; J44.1 Chronic obstructive pulmonary disease with (acute) exacerbation; J44.0 Chronic obstructive pulmonary disease with (acute) lower respiratory infection; D68.59 Other primary thrombophilia; T17.590A Other foreign object in bronchus causing asphyxiation, initial encounter; T17.490A Other foreign object in trachea causing asphyxiation, initial encounter; E11.65 Type 2 diabetes mellitus with hyperglycemia; K21.9 Gastro-esophageal reflux disease without esophagitis; I25.10 Atherosclerotic heart disease of native coronary artery without angina pectoris; N18.3 Chronic kidney disease, stage 3 (moderate); I48.0 Paroxysmal atrial fibrillation; E78.00 Pure hypercholesterolemia, unspecified; E11.22 Type 2 diabetes mellitus with diabetic chronic kidney disease; F17.210 Nicotine dependence, cigarettes, uncomplicated; E86.0 Dehydration; D64.9 Anemia, unspecified; E87.8 Other disorders of electrolyte and fluid balance, not elsewhere classified; E55.9 Vitamin D deficiency, unspecified; G57.90 Unspecified mononeuropathy of unspecified lower limb; E53.8 Deficiency of other specified B group vitamins; E66.9 Obesity, unspecified; I25.5 Ischemic cardiomyopathy; E11.42 Type 2 diabetes mellitus with diabetic polyneuropathy; X58.XXXA Exposure to other specified factors, initial encounter; Y93.89 Activity, other specified; Y92.89 Other specified places as the place of occurrence of the external cause; Z88.9 Allergy status to unspecified drugs, medicaments and biological substances; Z81.2 Family history of tobacco abuse and dependence; Z83.6 Family history of other diseases of the respiratory system; Z83.3 Family history of diabetes mellitus; Z80.8 Family history of malignant neoplasm of other organs or systems; Z79.4 Long term (current) use of insulin; Z79.01 Long term (current) use of anticoagulants; Z95.810 Presence of automatic (implantable) cardiac defibrillator; Z95.1 Presence of aortocoronary bypass graft; Z90.49 Acquired absence of other specified parts of digestive tract; Z79.82 Long term (current) use of aspirin; Z79.899 Other long term (current) drug therapy; Y99.8 Other external cause status; Z68.33 Body mass index [BMI] 33.0-33.9, adult

== ENCOUNTER 2019-05-30 20:14 | Inpatient (IN) | payer MEDICARE ==
[~2019-05-30] VITALS: Ht 172.7 cm; Wt 91.3 kg
[~2019-05-30 20:14] MED LIST changes: +HYDRALAZINE HYD50 MG PO; +Isordil20 MG PO; +PREDNISONE10 MG PO; +VITAMIN D32000 UNI1 PO
[2019-05-30 20:23] VITALS: BP 136/84
[2019-05-30 20:42] LABS: BASO % 0.6 % (0.0-1.0); EOS # 0.1 10*3/uL (0.0-0.4); EOS % 0.9 % (1.0-4.0); HEMATOCRIT 39.7 % (42.0-52.0); HEMOGLOBIN 12.2 g/dl (14.0-18.0); LYMPH # 1.4 10*3/uL (1.3-4.4); LYMPH % 20.6 % (27.0-41.0); MEAN CELL VOLUME 90.6 fl (80.0-94.0); MEAN CORPUSCULAR HGB 27.9 pg (27.0-31.0); MEAN CORPUSCULAR HGB CONC 30.7 g/dl (33.0-37.0); MEAN PLATELET VOLUME 10.8 fl (9.6-12.3); MONO # 0.4 10*3/uL (0.1-1.0); MONO % 5.5 % (3.0-9.0); NEUT # 4.7 10*3/uL (2.3-7.9); NEUT % 72.1 % (47.0-73.0); PLATELET COUNT AUTOMATED 168 10*3/uL (130-400); RED BLOOD COUNT 4.38 10*6/uL (4.50-5.90); RED CELL DISTRI WIDTH 15.9 % (0-14.5); WHITE BLOOD COUNT 6.5 10*3/uL (4.8-10.8)
[2019-05-30 20:57] LABS: ALBUMIN 3.4 gm/dl (3.1-4.5); CREATININE 4.55 mg/dL (0.70-1.30); POTASSIUM 4.4 mmol/L (3.5-5.1); TOTAL PROTEIN 6.8 gm/dL (6.4-8.2)
[2019-05-30 20:58] LABS: TROPONIN I 0.021 ng/ml (<0.045)
[2019-05-30 20:59] LABS: INTERNATIONAL NORM RATIO 8.7 (2.0-3.5)
--- NOTE | 2019-05-30 21:00 | NUR ---
LAB CALLED WITH CRITICAL HIGH INR REPORTED TO ALICIA OLVERA.MD WATKINS NOTIFIED.
[2019-05-30 21:36] VITALS: BP 138/85
[2019-05-30 22:30] VITALS: BP 139/83
[2019-05-30 23:09] VITALS: BP 123/72
--- NOTE | 2019-05-30 23:30 | NUR ---
A 73, admitted to 5E, under the services of LORA Alejandro DO with a diagnosis of CHF. ARF. COUMADIN TOXICITY. Chief complaint is SOB. Patient arrived via bed from ER. Monitor applied. Initial assessment completed. Vital signs taken and recorded. LORA ALEJANDRO DO notified of admission to the unit. Orders received. See assessment for past medical history, medications and allergies. Patient and/or family oriented to unit. [address] visitation policy reviewed. Clothing/patient valuable form completed. PT VACCINATED FOR FLU AND PNEUMONIA THIS YEAR 04/29. WOUND TO COCCYX. RED/PURPLE AREA WITH A SMALL CUT MEASURING 0.5/0.25. MULTIPLE SCABS/SCRATCHES TO BILATERAL LOWER EXTREMETIES. MARIANNA CARRILLO
[2019-05-31] VITALS: BP 139/83
--- NOTE | 2019-05-31 | NUR ---
SPOOL HAULER HERMINIA APPROVED PT'S STAYING WITH HIM OVER NIGHT.
[2019-05-31] MEDS ORDERED: LASIX40 MG PO (00:22)
--- NOTE | 2019-05-31 00:57 | NUR ---
DR ARMAS NOTIFIED OF UPDATED MED REC AND NEED FOR WOUND ORDERS.
--- NOTE | 2019-05-31 02:30 | NUR ---
PT C/O SOB AT THIS TIME. PT HAS A PRODUCTIVE COUGH WITH MUCOUS THAT CHOKES HIM AT TIMES AND MAKES IT DIFFICULT TO BREATH. PT WAS ABLE TO EXPECTORATE THE SPUTUM AND IS FEELING MUCH BETTER. O2 2L PER NC IS BEING ADMINISTERED. WILL CONTINUE TO MONITOR.
--- NOTE | 2019-05-31 04:24 | NUR ---
NEW PT CONSULT FOR DR ROSAS CALLED TO ANSWERING SERVICE.
--- NOTE | 2019-05-31 04:28 | NUR ---
NEW PATIENT CONSULT CALLED INTO ANSWERING SERVICE FOR DR HIGUERA.
[2019-05-31 06:36] LABS: BASO # 0.1 10*3/uL (0.0-0.1); BASO % 1.1 % (0.0-1.0); CREATININE 4.4 mg/dL (0.70-1.30); EOS # 0.1 10*3/uL (0.0-0.4); EOS % 1.6 % (1.0-4.0); HEMATOCRIT 39.6 % (42.0-52.0); LYMPH # 1.4 10*3/uL (1.3-4.4); LYMPH % 24.4 % (27.0-41.0); MEAN CELL VOLUME 91.7 fl (80.0-94.0); MEAN CORPUSCULAR HGB 27.8 pg (27.0-31.0); MEAN CORPUSCULAR HGB CONC 30.3 g/dl (33.0-37.0); MEAN PLATELET VOLUME 11.4 fl (9.6-12.3); MONO # 0.3 10*3/uL (0.1-1.0); MONO % 5.3 % (3.0-9.0); NEUT # 3.8 10*3/uL (2.3-7.9); NEUT % 67.2 % (47.0-73.0); PLATELET COUNT AUTOMATED 153 10*3/uL (130-400); POTASSIUM 3.9 mmol/L (3.5-5.1); RED BLOOD COUNT 4.32 10*6/uL (4.50-5.90); WHITE BLOOD COUNT 5.6 10*3/uL (4.8-10.8)
[2019-05-31 06:37] LABS: PHOSPHOROUS 3.8 mg/dL (2.5-4.9)
--- NOTE | 2019-05-31 07:12 | NUR ---
MICHAEL ADLER [id number] Please refer to the physician's history and physical for past medical history, comorbid conditions, and allergies. Diagnosis: CHF,ARF,COUMADIN TOXICITY Andrew Score: 17,AT RISK WOUND DESCRIPTIONS: Wound Number: 1 Location of the wound: COCCYX Type of wound: STAGE 2 Thickness: Partial Size: 0.3cm X 0.4cm X 0.1cm Tunneling: NONE Undermining: NONE Sinus Tract: NONE Presence of Exudate: Serous Amount: Light Color: Red Odor: None Periwound Skin Appearance: Erythema Wound edges: APPROXIMATED Pain (associated with wound): TENDER TO TOUCH How does patient state this happened? PATIENT STATES THIS HAS BEEN THERE FOR A COUPLE WEEKS. PATIENT STATES HE HAS BEEN USING [place] AT HOME. Surface the patient is resting on: Isoflex SKIN PREVENTION RECOMMENDATION: 1. Pressure redistribution support surface as appropriate 2. Elevate heels 3. Remove boots/TEDS every shift and reapply 4. Head of bed 30 degrees as tolerated 5. Assess nutrition and hydration 6. Manage moisture 7. Avoid the use of containment devices while in bed 8. Use absorptive products on surfaces limit layers of linens on bed 9. Turn and reposition every 1-2 hours in bed and every 1 hour in chair as tolerated 10. Weight shifts every 15 minutes while up in chair 11. Offloading with pillows or device to keep heels elevated off bed 12. Monitor skin at least every shift 13. Inspect under medical devices twice a day WOUND TREATMENT RECOMMENDATIONS: CONTINUE CURRENT WOUND CARE ORDERS.
[2019-05-31 08:00] VITALS: BP 112/62
[2019-05-31 08:41] LABS: INTERNATIONAL NORM RATIO 5.4 (2.0-3.5)
--- NOTE | 2019-05-31 09:00 | NUR ---
Scientific Affairs Manager in to talk to patient. Patient states lives at home with . There are few steps in the home. Physician: jailene kim [facility] none Patient's level of ADLs: INDEPENDENT Patient has working utilities: all working DME: cane Follow-up physician's appointment after d/c: will be made by hospitalist nurse director upon discharge Does patient want to access PORTAL?: no Discharge plan discussed with patient, he states he lives at home with , is independent in adls and ambulation with a cane, he states he will return home when medically stable and denies any home needs, case management will follow. COURT [place]
--- NOTE | 2019-05-31 10:16 | NUR ---
Nursing screen received and chart reviewed. Patient admitted for acute renal failure with a PMH including GERD, CAD, CKD stage 4, HRrEF, and pacemaker. If patient has a decline in ADLs and functional mobility/transfers, please send OT orders. Thank you. Molly Nagy, OTR/L
--- NOTE | 2019-05-31 10:52 | NUR ---
VERIFIED HOME DOSE OF TOUJEO WITH [facility] WHO STATED IT SHOULD BE [address] LICEA NOTIFIED AND ORDERED 140 UNITS WHICH WAS THE DOSE GIVEN THE PREVIOUS ADMISSION IN AUG AND WILL ADJUST NECCESSARY PER HIM.
[2019-05-31 12:00] VITALS: BP 126/77
--- NOTE | 2019-05-31 15:56 | NUR ---
PHYSICAL THERAPY Pt admitted for acute renal failure. Pt came from home and was independent with all ADLs and ambulation. If Pt has a decline in functional mobility with ambulation and ADLs, may refer to physical therapy. Thank you Poornima Rosas, PT, DPT
[2019-05-31 16:00] VITALS: BP 112/70
[2019-05-31 20:00] VITALS: BP 113/70
[2019-06-01] VITALS: BP 118/76
[2019-06-01 06:45] LABS: BASO % 0.7 % (0.0-1.0); EOS # 0.1 10*3/uL (0.0-0.4); EOS % 1.8 % (1.0-4.0); HEMATOCRIT 38.6 % (42.0-52.0); LYMPH # 1.1 10*3/uL (1.3-4.4); LYMPH % 17.9 % (27.0-41.0); MEAN CELL VOLUME 90.2 fl (80.0-94.0); MEAN CORPUSCULAR HGB CONC 31.1 g/dl (33.0-37.0); MEAN PLATELET VOLUME 11.2 fl (9.6-12.3); MONO # 0.3 10*3/uL (0.1-1.0); NEUT # 4.6 10*3/uL (2.3-7.9); NEUT % 74.3 % (47.0-73.0); PLATELET COUNT AUTOMATED 151 10*3/uL (130-400); RED BLOOD COUNT 4.28 10*6/uL (4.50-5.90); RED CELL DISTRI WIDTH 15.9 % (0-14.5); WHITE BLOOD COUNT 6.2 10*3/uL (4.8-10.8)
[2019-06-01 07:07] LABS: CREATININE 4.49 mg/dL (0.70-1.30); POTASSIUM 4.1 mmol/L (3.5-5.1)
[2019-06-01 07:19] LABS: INTERNATIONAL NORM RATIO 2.5 (2.0-3.5)
[2019-06-01 08:00] VITALS: BP 125/71
--- NOTE | 2019-06-01 09:00 | NUR ---
case management visits with patient, he will return home when medically stable, continues at this time on a bumex dripp, case management will follow
--- NOTE | 2019-06-01 11:19 | NUR ---
Patient states that he will care for the area at home when discharged.
[2019-06-01 12:00] VITALS: BP 119/74
[2019-06-01 16:00] VITALS: BP 108/67
[2019-06-01 20:00] VITALS: BP 118/70
[2019-06-02] VITALS: BP 105/57
--- NOTE | 2019-06-02 02:04 | NUR ---
PATIENT MEDICATED WITH TYLENOL FOR COMPLAINTS OF GENERALIZED DISCOMFORT. SAID IT ALSO HELPS HIM TO SLEEP. WILL CONTINUE TO MONITOR. CALL LIGHT IN REACH.
[2019-06-02 07:23] LABS: CREATININE 4.35 mg/dL (0.70-1.30); POTASSIUM 3.7 mmol/L (3.5-5.1)
[2019-06-02 07:26] LABS: BASO % 0.5 % (0.0-1.0); EOS # 0.1 10*3/uL (0.0-0.4); HEMATOCRIT 36.1 % (42.0-52.0); LYMPH # 1.1 10*3/uL (1.3-4.4); LYMPH % 16.9 % (27.0-41.0); MEAN CELL VOLUME 90.7 fl (80.0-94.0); MEAN CORPUSCULAR HGB 27.6 pg (27.0-31.0); MEAN CORPUSCULAR HGB CONC 30.5 g/dl (33.0-37.0); MEAN PLATELET VOLUME 11.4 fl (9.6-12.3); MONO # 0.4 10*3/uL (0.1-1.0); MONO % 5.4 % (3.0-9.0); NEUT # 4.8 10*3/uL (2.3-7.9); NEUT % 74.9 % (47.0-73.0); PLATELET COUNT AUTOMATED 149 10*3/uL (130-400); RED BLOOD COUNT 3.98 10*6/uL (4.50-5.90); RED CELL DISTRI WIDTH 15.9 % (0-14.5); WHITE BLOOD COUNT 6.5 10*3/uL (4.8-10.8)
[2019-06-02 07:51] LABS: INTERNATIONAL NORM RATIO 2.4 (2.0-3.5)
--- NOTE | 2019-06-02 08:08 | NUR ---
Shift chart check completed.
--- NOTE | 2019-06-02 09:00 | NUR ---
case management visits with patient, he states he will return home when medically stable and denies any home needs, case management will follow
[2019-06-02 09:23] VITALS: BP 120/60
[2019-06-02 12:00] VITALS: BP 129/62
[2019-06-02 16:00] VITALS: BP 117/76
--- NOTE | 2019-06-02 16:45 | NUR ---
Patient does not qualify for home O2. Pre-Ambulation: BP: 123/64, HR: 72, SPO2: 99% Ambulation: HR: 72-77, SPO2: 99%-94% Post-Ambulation: BP: 127/61, HR: 76, SPO2: 95% RN notified.
[2019-06-02] MEDS ORDERED: CARVEDILOL25 MG PO (16:53)
[2019-06-02] MEDS ORDERED: BUMETANIDE1 MG PO (16:53)
[2019-06-02] MEDS ORDERED: COUMADIN2.5 M1 PO (16:53)
--- NOTE | 2019-06-02 17:34 | NUR ---
PT DISCHARGED HOME WITH AND DAUGHTER. HE REFUSED WOUND CARE PICTURES HE WAS ANXIOUS TO LEAVE. PT TRANPORTED OFF VIA WHEELCHAIR. [employer] SUPPORT SPECIALIST DC'D.
--- NOTE | 2019-06-05 08:16 | NUR ---
Occupational therapy orders received. Patient has been discharged. Thank you. Molly Nagy, OTR/L
== END 2019-06-02 17:34 | disposition home or self-care (01) | DRG 917 ==
LOC: ED 20:14 → 5E 22:26 → EDHOLD 22:26 → 5E 22:53
PROVIDERS: Emergency Medicine; Internal Medicine; ADMIT Family Medicine
DX: T45.514A Poisoning by anticoagulants, undetermined, initial encounter (principal); N17.0 Acute kidney failure with tubular necrosis; I50.23 Acute on chronic systolic (congestive) heart failure; I25.810 Atherosclerosis of coronary artery bypass graft(s) without angina pectoris; D68.59 Other primary thrombophilia; E44.1 Mild protein-calorie malnutrition; I13.2 Hypertensive heart and chronic kidney disease with heart failure and with stage 5 chronic kidney disease, or end stage renal disease; N18.5 Chronic kidney disease, stage 5; L89.152 Pressure ulcer of sacral region, stage 2; E78.00 Pure hypercholesterolemia, unspecified; E11.65 Type 2 diabetes mellitus with hyperglycemia; I35.0 Nonrheumatic aortic (valve) stenosis; I25.5 Ischemic cardiomyopathy; E11.51 Type 2 diabetes mellitus with diabetic peripheral angiopathy without gangrene; K21.9 Gastro-esophageal reflux disease without esophagitis; E55.9 Vitamin D deficiency, unspecified; G57.93 Unspecified mononeuropathy of bilateral lower limbs; E11.22 Type 2 diabetes mellitus with diabetic chronic kidney disease; E53.8 Deficiency of other specified B group vitamins; I48.0 Paroxysmal atrial fibrillation; D64.9 Anemia, unspecified; E66.09 Other obesity due to excess calories; Z68.30 Body mass index [BMI] 30.0-30.9, adult; Z95.810 Presence of automatic (implantable) cardiac defibrillator; Y92.89 Other specified places as the place of occurrence of the external cause; Z79.4 Long term (current) use of insulin; Z91.041 Radiographic dye allergy status; Z91.018 Allergy to other foods; Z87.01 Personal history of pneumonia (recurrent); Z86.711 Personal history of pulmonary embolism; Z90.49 Acquired absence of other specified parts of digestive tract; Z95.1 Presence of aortocoronary bypass graft; Z87.891 Personal history of nicotine dependence; Z82.5 Family history of asthma and other chronic lower respiratory diseases; Z82.49 Family history of ischemic heart disease and other diseases of the circulatory system; Z83.3 Family history of diabetes mellitus; Z80.8 Family history of malignant neoplasm of other organs or systems; Z79.899 Other long term (current) drug therapy; Z79.82 Long term (current) use of aspirin; Z79.01 Long term (current) use of anticoagulants

== ENCOUNTER 2019-06-06 15:00 | Emergency (ER) | payer MEDICARE ==
[~2019-06-06] VITALS: Wt 104.3 kg
--- NOTE | ~2019-06-06 | EKG ---
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 occ ventricular pacing Can not ruled out acute injury Compared to ECG 05/31/2019 02:00:52 Possible ischemia now present Sinus rhythm no longer present Electronically Signed On 06-07-2019 12:03:43 PST by Jefe Parrish CM:EKGRPT:ELECTROCARDIOGRAM REPORT [id number] ROYAL ANDERSON DRAFT REPORT ROYAL HOLLY M.D.
[~2019-06-06 15:00] MED LIST changes: +BUMETANIDE1 MG PO; +COUMADIN2.5 M1 PO
[2019-06-06 15:29] LABS: ABG HCO3 20.6 mmol/l (22-26); ABG O2 SATURATION 32.5 % (95-97)
[2019-06-06 15:30] LABS: ARTERIAL BLOOD GAS PH 7.051 (7.35-7.45)
[2019-06-06 15:31] LABS: ABG BASE EXCESS -11.9 mmol/L (-2.0-2.0)
[2019-06-06 15:51] LABS: ABG O2 SATURATION 36.1 % (95-97)
[2019-06-06 15:56] LABS: ARTERIAL BLOOD GAS PH 7.087 (7.35-7.45)
[2019-06-06 15:57] LABS: ABG BASE EXCESS -8.8 mmol/L (-2.0-2.0); ARTERIAL BLOOD GAS PCO2 75.2 mmHg (35-45); ARTERIAL BLOOD GAS PO2 26.9 mmHg (80-90)
== END 2019-06-06 16:00 | disposition expired ==
LOC: ED 15:00
PROVIDERS: Emergency Medicine
DX: I46.9 Cardiac arrest, cause unspecified (principal); I25.10 Atherosclerotic heart disease of native coronary artery without angina pectoris; K21.9 Gastro-esophageal reflux disease without esophagitis; E78.00 Pure hypercholesterolemia, unspecified; E11.42 Type 2 diabetes mellitus with diabetic polyneuropathy; E66.9 Obesity, unspecified; I48.0 Paroxysmal atrial fibrillation; I13.0 Hypertensive heart and chronic kidney disease with heart failure and stage 1 through stage 4 chronic kidney disease, or unspecified chronic kidney disease; E11.22 Type 2 diabetes mellitus with diabetic chronic kidney disease; N18.4 Chronic kidney disease, stage 4 (severe); I50.9 Heart failure, unspecified; E78.5 Hyperlipidemia, unspecified; Z91.041 Radiographic dye allergy status; Z79.899 Other long term (current) drug therapy; Z79.82 Long term (current) use of aspirin; Z79.4 Long term (current) use of insulin; Z87.891 Personal history of nicotine dependence; Z95.1 Presence of aortocoronary bypass graft